=== PATIENT | male | born 1940 | race Caucasian/White ===

== ENCOUNTER 2021-10-30 09:24 | Outpatient (CLI) | payer MEDICARE, SELFPAY ==
[2021-10-30 18:05] LABS: Alanine Aminotransferase 32 U/L (6-50); Albumin Level 4.4 g/dL (3.5-5.1); Alkaline Phosphatase 82 U/L (38-126); Anion Gap 9 mmol/L (8-16); Aspartate Amino Transferase 37 U/L (17-59); Bilirubin,Total 0.7 mg/dL (0.2-1.3); Blood Urea Nitrogen 20 mg/dL (9-20); Calcium 8.9 mg/dL (8.4-10.2); Carbon Dioxide 30 mmol/L (22-30); Chloride 103 mmol/L (98-107); Cholesterol 155 mg/dL (0-200); Estimated Glomerular Filt Rate > 60; Glucose 96 mg/dL (65-110); HDL Direct 38 mg/dL; Potassium 4.2 mmol/L (3.4-5.0); Sodium 142 mmol/L (137-145); Triglycerides 139 mg/dL (<150)
[2021-10-30 18:15] LABS: LDL Cholesterol Direct 81 mg/dL
[2021-10-30 19:06] LABS: Hemoglobin A1C 5.3 % (<5.7)
[2022-01-26 14:22] LABS: IFOB Positive Control Positive; Immunochemical Fecal Occult Bl Positive (N)
== END 2021-10-30 09:25 | disposition home or self-care (01) ==
LOC: ANHGOSHLAB 09:26
PROVIDERS: PCP Family Medicine; Visit Provider Family Medicine
DX: E78.5 Hyperlipidemia, unspecified (principal); I10 Essential (primary) hypertension; R73.01 Impaired fasting glucose
CPT/HCPCS: 36415; 80053; 80061; 82274; 83036

== ENCOUNTER 2022-03-01 22:58 | Emergency (ER) | payer MEDICARE, SELFPAY ==
[2022-03-01] VITALS (9 sets, daily range): BP systolic 152–206; BP diastolic 73–105; PULSE 91–100; RESP 16–25; TEMP 37.3; O2SAT 94–98
--- NOTE | ~2022-03-01 | XR_ITS ---
EXAMINATION: XR chest 2V DATE: 03/01/2022 23:20 INDICATION: Shortness of breath. Productive cough. TECHNIQUE: Frontal and lateral views of the chest were obtained. COMPARISON: Chest 2 views 12/05/2018 FINDINGS: There is no pneumonia, pleural effusion, or pneumothorax. The heart size is normal. There i s a left chest pacer with leads in right atrium, right ventricle, and coronary sinus. Surgical clips in the right upper quadrant are likely from cholecystectomy. IMPRESSION: 1. No acute cardiopulmonary disease. Reviewed, dictated and finalized at location A. ING PILOT
--- NOTE | 2022-03-01 22:59 | ECG_ITS ---
Measurements Intervals [place] Rate: 94 P: 86 NM: 158 QRS: 261 QRSD: 161 T: 77 QT: 382 QTc: 478 Interpretive Statements ATRIAL SENSE- ELECTRONIC VENTRICULAR PACEMAKER BASELINE ARTIFACT- I NO FURTHER INTERPRETATION IS POSSIBLE ATYPICAL ECG COMPARED TO ECG 11/26/2018 19:41:53 NO SIGNIFICANT CHANGES Electronically Signed On 03-02-2022 8:52:32 QUALIFICATION ENGINEER by Raymond Velazquez D.O.
--- NOTE | 2022-03-01 23:50 | ED.GENADULT ---
HPI - General Adult General Chief complaint: Shortness of Breath/Dyspnea Stated complaint: SOB Time Seen by Provider: 03/01/22 23:10 History of Present Illness HPI narrative: 82-year-old male history of A. fib, hypertension, pacemaker, hyperlipidemia presents to the emergency room for evaluation of a productive cough, wheezing, postnasal drip, sinus congestion, and sneezing for 3 days. Patient states he was taking an old albuterol prescription for the cough and wheezing, stating that it helped briefly. Patient denies fever or chest pains. Related Data Home Medications Medication Instructions Recorded Confirmed apixaban 5 mg tablet (Eliquis) 5 mg PO BID 04/10/19 02/18/22 atorvastatin 10 mg tablet (Lipitor) 10 mg PO DAILY 04/10/19 02/18/22 cholecalciferol (vitamin D3) 50 2,000 unit PO DAILY 04/24/19 02/18/22 mcg (2,000 unit) tablet loratadine 10 mg tablet 10 mg PO DAILY 04/24/19 02/18/22 magnesium 250 mg tablet 250 mg PO DAILY 04/24/19 02/18/22 vit C 250 mg-vit E 90 mg-zinc 40 1 tablet PO BID 04/24/19 02/18/22 mg-copper 1 [id number] capsule (PreserVision AREDS-2) sotalol 80 mg tablet 80 mg PO Q12H 09/20/19 02/18/22 ascorbic acid (vitamin C) 500 mg 500 mg PO DAILY 02/18/22 02/18/22 capsule losartan 100 1 tablet PO DAILY 02/18/22 02/18/22 mg-hydrochlorothiazide 12.5 mg tablet Allergies Allergy/AdvReac Type Severity Reaction Status Date / Time cat dander Allergy Severe Difficulty Verified 03/01/22 23:04 Breathing latex Allergy Intermediate Rash Verified 03/01/22 23:04 Review of Systems Review of Systems: CONSTITUTIONAL: Denies fever, chills, or sweats. EYES: Denies visual changes, redness, or discharge. ENT: Reports rhinorrhea, congestion CARDIOVASCULAR: Denies chest pain, palpitations, or edema. RESPIRATORY: Reports a productive cough GASTROINTESTINAL: Denies abdominal pain, nausea, vomiting, or diarrhea. GENITOURINARY: Denies dysuria or hematuria. SKIN: Denies rash or itching. MUSCULOSKELETAL: Denies back pain, joint pain, or myalgia. NEUROLOGIC: Denies headache, numbness, dizziness, or weakness. PSYCHIATRIC: Denies anxiety or depression. [facility] Past Medical History Medical History (Updated 03/02/22 @ 00:58 by Nazario Mcfarland APRN) Atrial fibrillation Family History Family History Mother Family history of malignant neoplasm Social History Social History Smoking status: Never smoker Alcohol intake: current Substance use: never Substance use type: does not use Gender identity (if verbalized by the patient): Male Spiritual care concerns: No Exam Narrative: GENERAL: Well-appearing, well-nourished, no physical limitations, and in no acute distress. HEAD: Normocephalic, atraumatic. EYES: Conjunctivae normal, PERRLA and EOMI. ENT: External nose normal, Nares clear, no rhinorrhea or epistaxis. Mucous membranes moist. Oropharynx without tonsillar hypertrophy exudate or other lesions. External ears normal, bilateral TMs normal bilaterally NECK: Supple. No adenopathy or masses. CHEST: No respiratory distress. Expiratory wheezes at bases HEART: Regular rate and rhythm. No murmur heard. Normal peripheral pulses. ABDOMEN: Soft, nontender, nondistended, normal active bowel sounds. EXTREMITIES: Normal range of motion. No edema. No clubbing or cyanosis SKIN: Warm, dry, no rash. No noted wounds NEURO: No focal deficits. Alert and oriented x3. MAEW. CN's II-XI intact bilaterally, normal gait PSYCH: Cooperative. Normal mood and affect. Course Vital Signs Vital signs: Vital Signs Temperature 37.3 C 03/01/22 23:01 Pulse Rate 94 03/01/22 23:01 Respiratory Rate 18 03/01/22 23:01 Blood Pressure 206/105 H 03/01/22 23:01 Pulse Oximetry 98 03/01/22 23:01 Temperature 37.3 C 03/01/22 23:01 Pulse Rate 91 03/01/22 23:04 Respiratory Rate 19
[2022-03-01 23:58] LABS: Basophils Absolute Auto 0.1 K/mm3 (0.0-0.1); Basophils Percent Auto 0.6 % (0.2-1.2); Eosinophils Absolute Auto 0.2 K/mm3 (0-0.3); Eosinophils Percent Auto 2.6 % (0-4.4); Hematocrit 40.3 % (42.0-52.0); Hemoglobin 13.3 g/dL (14.0-18.0); Immature Granulocyte Absolute 0.03 K/mm3 (0.00-0.031); Immature Granulocyte Percent A 0.3 % (0-0.5); Immature Platelet Fraction Pct 8.2 % (0.9-11.2); Lymphocytes Absolute Auto 1.06 K/mm3 (0.9-3.2); Mean Corpuscular Hemoglobin 30.6 pg (26-34); Mean Corpuscular Volume 92.9 fl (80-100); Mean Platelet Volume 10.9 fl (7.4-10.4); Monocytes Absolute Auto 0.7 K/mm3 (0.1-0.6); Monocytes Percent Auto 7.4 % (2.6-8.5); Neutrophils Absolute Auto 6.8 K/mm3 (1.3-6.7); Neutrophils Percent Auto 77.1 % (45.5-73.1); Platelet Count Result 146 k/mm3 (150-375); Red Blood Count 4.34 M/mm3 (4.6-6.20); Red Cell Distribution Width 12.8 % (11.5-14.5); White Blood Count 8.8 K/mm3 (4.5-10.0)
[2022-03-02] VITALS (11 sets, daily range): BP systolic 128–143; BP diastolic 67–79; PULSE 88–96; RESP 13–21; O2SAT 92–98
[2022-03-02] MEDS: IPRATROPIUM BR 0.02% INH SOLN 0.5 MG/2.5 ML VIAL INHALATION (00:07)
[2022-03-02] MEDS: ALBUTEROL SULFATE NEB 2.5 MG/3 ML INH INHALATION (00:07)
[2022-03-02 00:08] LABS: Alanine Aminotransferase 23 U/L (6-50); Albumin Level 4.3 g/dL (3.5-5.1); Alkaline Phosphatase 88 U/L (38-126); Anion Gap 9 mmol/L (8-16); Aspartate Amino Transferase 22 U/L (17-59); Bilirubin,Total 0.4 mg/dL (0.2-1.3); Blood Urea Nitrogen 15 mg/dL (9-20); Calcium 8.5 mg/dL (8.4-10.2); Carbon Dioxide 31 mmol/L (22-30); Chloride 102 mmol/L (98-107); Estimated CRCL calculation 69 ml/min; Estimated Glomerular Filt Rate > 60; Glucose 114 mg/dL (65-110); Potassium 4.2 mmol/L (3.4-5.0); Sodium 142 mmol/L (137-145)
[2022-03-02 00:33] LABS: Influenza A QL RT-PCR Negative (Negative); Influenza B QL RT-PCR Negative (Negative); RSV RNA, RT-PCR Negative (Negative); SARS-CoV-2 RNA PCR Negative
== END 2022-03-02 01:50 | disposition home or self-care (01) ==
PROVIDERS: Preventive Medicine Aerospace Medicine; Emergency Provider Nurse Practitioner Family; PCP Family Medicine
DX: J06.9 Acute upper respiratory infection, unspecified (principal); Z20.822 Contact with and (suspected) exposure to COVID-19; E78.5 Hyperlipidemia, unspecified; I10 Essential (primary) hypertension; I48.91 Unspecified atrial fibrillation; Z79.01 Long term (current) use of anticoagulants; Z95.0 Presence of cardiac pacemaker
CPT/HCPCS: 36415; 71046; 80053; 85025; 85055; 87637; 93005; 94640; 96374; 99284; J1100

== ENCOUNTER 2022-03-03 15:04 | Inpatient (IN) | payer MEDICARE, SELFPAY ==
--- NOTE | ~2022-03-03 | XR_ITS ---
EXAMINATION: XR chest 2V Exam Date/Time: 03/03/2022 18:20 BILLBOARD ERECTOR HISTORY: sob with wheezing, weakness. hx Afib, pacemaker Comparison: 03/01/2022. RESULT: Lines, tubes, and devices: Left chest pacer with intact leads. Cholecystectomy clips. Lungs and pleura: Clear. Cardiomediastinal silhouette: Stable. Other: No acute osseous or upper abdominal finding. IMPRESSION: No acute cardiopulmonary process. Reviewed, dictated and finalized at location K. BOARD ERECTOR
[2022-03-03 15:12] VITALS: BP 174/110; PULSE 114; RESP 26; TEMP 37.1; O2SAT 97
--- NOTE | 2022-03-03 15:14 | ECG_ITS ---
Measurements Intervals [place] Rate: 99 P: 91 ME: 160 QRS: 265 QRSD: 161 T: 77 QT: 390 QTc: 502 Interpretive Statements ATRIAL SENSE- ELECTRONIC VENTRICULAR PACEMAKER VENTRICULAR PREMATURE COMPLEX BASELINE ARTIFACT- V1, V3 NO FURTHER INTERPRETATION IS POSSIBLE ATYPICAL ECG COMPARED TO ECG 03/01/2022 23:51:12 NO SIGNIFICANT CHANGES Electronically Signed On 03-03-2022 15:22:59 CARPENTER/LABOR by Raymond Velazquez D.O.
[2022-03-03 15:38] LABS: Basophils Percent Auto 0.3 % (0.2-1.2); Eosinophils Percent Auto 0.3 % (0-4.4); Hematocrit 41.7 % (42.0-52.0); Hemoglobin 13.8 g/dL (14.0-18.0); Immature Granulocyte Absolute 0.07 K/mm3 (0.00-0.031); Immature Granulocyte Percent A 0.7 % (0-0.5); Lymphocytes Absolute Auto 0.58 K/mm3 (0.9-3.2); Lymphocytes Percent Auto 6.1 % (18.3-44.2); Mean Corpuscular HGB Conc 33.1 g/dl (32-36); Mean Corpuscular Hemoglobin 30.2 pg (26-34); Mean Corpuscular Volume 91.2 fl (80-100); Mean Platelet Volume 11.4 fl (7.4-10.4); Monocytes Absolute Auto 0.6 K/mm3 (0.1-0.6); Monocytes Percent Auto 6.8 % (2.6-8.5); Neutrophils Absolute Auto 8.1 K/mm3 (1.3-6.7); Neutrophils Percent Auto 85.8 % (45.5-73.1); Platelet Count Result 154 k/mm3 (150-375); Red Blood Count 4.57 M/mm3 (4.6-6.20); Red Cell Distribution Width 12.8 % (11.5-14.5); White Blood Count 9.5 K/mm3 (4.5-10.0)
[2022-03-03 15:56] LABS: Lipase 37 U/L (23-300)
[2022-03-03 16:21] LABS: Influenza A QL RT-PCR Negative (Negative); Influenza B QL RT-PCR Negative (Negative); RSV RNA, RT-PCR Negative (Negative); SARS-CoV-2 RNA PCR Negative
--- NOTE | 2022-03-03 16:47 | ED.SOB ---
HPI - SOB/Dyspnea General Chief Complaint: Shortness of Breath/Dyspnea Stated Complaint: SOB/cough Time Seen by Provider: 03/03/22 16:31 History of Present Illness HPI Narrative: Patient is an 82-year-old male with a history of sick sinus syndrome status post pacemaker, hyperlipidemia, hypertension presenting with shortness of breath. Patient states that for the last 5 days he has been increasingly short of breath which has been associated with cough. States that he was seen here 2 days ago and received a breathing treatment which helped his symptoms.. He was able to go home with an inhaler which she has been using but it only helps for short period. States that he saw his PCP earlier today who increased his medications. His went to pick them up but the patient again felt so short of breath and wheezy that he decided to come in for evaluation. States that he cannot even walk around at home because he gets so short of breath. He denies chest pain or shortness of breath. No fevers, headache, abdominal pain, vomiting, diarrhea, leg swelling. Related Data Home Medications Medication Instructions Recorded Confirmed apixaban 5 mg tablet (Eliquis) 5 mg PO BID 04/10/19 03/03/22 atorvastatin 10 mg tablet (Lipitor) 10 mg PO DAILY 04/10/19 03/03/22 cholecalciferol (vitamin D3) 50 2,000 unit PO DAILY 04/24/19 03/03/22 mcg (2,000 unit) tablet loratadine 10 mg tablet 10 mg PO DAILY 04/24/19 03/03/22 magnesium 250 mg tablet 250 mg PO DAILY 04/24/19 03/03/22 vit C 250 mg-vit E 90 mg-zinc 40 1 tablet PO BID 04/24/19 03/03/22 mg-copper 1 [id number]-qhjwrs capsule (PreserVision AREDS-2) sotalol 80 mg tablet 80 mg PO Q12H 09/20/19 03/03/22 ascorbic acid (vitamin C) 500 mg 500 mg PO DAILY 02/18/22 03/03/22 capsule losartan 100 1 tablet PO DAILY 02/18/22 03/03/22 mg-hydrochlorothiazide 12.5 mg tablet albuterol sulfate 90 mcg/actuation 1 inh inhalation QID PRN Shortness 03/03/22 03/03/22 aerosol inhaler (Proventil HFA) Of Breath prednisone 20 mg tablet 20 mg PO DAILY 03/03/22 03/03/22 Allergies Allergy/AdvReac Type Severity Reaction Status Date / Time cat dander Allergy Severe Difficulty Verified 03/03/22 11:10 Breathing latex Allergy Intermediate Rash Verified 03/03/22 11:10 Review of Systems Review of Systems: All systems reviewed & are unremarkable except as noted in HPI and below PMFSH Past Medical History Medical History (Updated 03/04/22 @ 22:19 by Pratibha Gibbs MD) Atrial fibrillation Family History Family History Mother Family history of malignant neoplasm Social History Social History Smoking status: Never smoker Alcohol intake: never Substance use: never Substance use type: does not use Lack of Transportation: No Lack of Food: Never True Current Housing: I Have Housing Concerned About Future Housing: No Difficulty Paying Gas/Electric Bills: No Difficulty Paying for Meds: No Currently Unemployed: No Education: High School Diploma/GED Difficulty w/ Childcare or Family Care: No Gender identity (if verbalized by the patient): Male Spiritual care concerns: No Exam Narrative: GENERAL: Well-appearing, well-nourished, and in no acute distress. HEAD: Normocephalic, atraumatic. EYES: PERRLA and EOMI. ENT: Nares clear, no rhinorrhea or epistaxis. Mucous membranes moist. NECK: Supple. CHEST: Wheezing bilaterally. No respiratory distress. HEART: Regular rate and rhythm. No murmur heard. Normal peripheral pulses. ABDOMEN: Soft, nontender, nondistended, normal active bowel sounds. EXTREMITIES: Normal range of motion. No edema. SKIN: Warm, dry, no rash. NEURO: No focal deficits. Alert and oriented x3. PSYCH: Normal mood and affect. Course Vital Signs Vital signs: Vital Signs Temperature 98.7 F 03/03/22 15:12 Pulse Rate 114 H 03/03/22 15
[2022-03-03] MEDS: ALBUTEROL SULFATE NEB 2.5 MG/3 ML INH 10 MG INHALATION (16:55)
[2022-03-03] MEDS: IPRATROPIUM BR 0.02% INH SOLN 0.5 MG/2.5 ML VIAL INHALATION ×2 (16:55→20:56)
[2022-03-03 17:21] LABS: Potassium 3.7 mmol/L (3.4-5.0)
[2022-03-03] MEDS: SODIUM CHLORIDE 0.9% IV 1,000 ML 999 ML IV CONT (17:22)
[2022-03-03] MEDS: methylPREDNISolone SOD SUCC 125 MG VIAL IV PUSH (17:22)
[2022-03-03 17:32] LABS: Troponin I < 0.012 ng/mL (0.000-0.034)
[2022-03-03 17:33] LABS: Appearance Urine Clear (Clear); Bilirubin Urine Negative (Negative); Blood Urine Trace-lysed (Negative); Color Urine Yellow (Yellow); Glucose Urine UA Negative (Negative); Ketones Urine Negative (Negative); Leukocyte Esterase Ur Negative LEU/UL (Negative); Nitrate Urine Negative (Negative); Protein Urine 1+ mg/dL (Negative); Urobilinogen Urine 0.2 mg/dL (<2.0)
[2022-03-03 17:36] LABS: Bacteria Urine Trace /hpf; Mucus Urine Rare /lpf; WBC Urine 0-3 /hpf
[2022-03-03 17:44] LABS: Add Urine Microscopic? YES
[2022-03-03 17:48] LABS: Alanine Aminotransferase 25 U/L (6-50); Albumin Level 4.6 g/dL (3.5-5.1); Alkaline Phosphatase 97 U/L (38-126); Anion Gap 6 mmol/L (8-16); Aspartate Amino Transferase 27 U/L (17-59); Bilirubin,Total 0.6 mg/dL (0.2-1.3); Blood Urea Nitrogen 18 mg/dL (9-20); Calcium 8.8 mg/dL (8.4-10.2); Carbon Dioxide 28 mmol/L (22-30); Chloride 102 mmol/L (98-107); Estimated CRCL calculation 96 ml/min; Estimated Glomerular Filt Rate > 60; Glucose 113 mg/dL (65-110); Lipase 36 U/L (23-300); Sodium 136 mmol/L (137-145)
[2022-03-03 18:26] LABS: Prothrombin Time 13.2 Seconds (11.1-14.7)
--- NOTE | 2022-03-03 20:07 | PM.IMHP ---
H&P: HPI History of Present Illness Date/Time: 03/03/22 20:07 Chief Complaint: shortness of breath Narrative: This is an 82-year-old male with past medical history significant for atrial fibrillation rate controlled and anticoagulated, pacemaker defibrillator in place, shortness of breath, productive cough, of yellowish villegas sputum,hypertension. Patient presented to the emergency room due to shortness of breath, productive cough, of yellowish villegas sputum for the last 3 days or so patient had been in to see his primary care physician who started him on p.o. antibiotics however due to worsening of shortness of breath and cough patient decided to present to the emergency room, patient denies any fevers, rigors, chills, night sweats, leg swelling, chest pain. In emergency room patient was given several neb treatments but was still feeling very short of breath and had wheezing. Decision has been made to admit the patient for further evaluation management and treatment. Review of Systems Review of Systems: Shortness of breath, cough productive of sputum. Constitutional: Constitutional: Denies chills, Denies fever(s), Denies night sweats and Denies poor appetite Comments: No fevers, no rigors, no chills Eyes: Eyes: Denies change in vision ENT: Denies dysphagia and Denies odynophagia Cardiovascular: Cardiovascular: Denies chest pain, Denies leg edema and Denies palpitations Respiratory: Respiratory: Denies change in phlegm color, Reports chest congestion, Reports cough, Reports excessive phlegm production, Reports dyspnea and Reports wheezing Gastrointestinal: Gastrointestinal: Denies abdominal pain, Denies dyspepsia, Denies heartburn, Denies diarrhea, Denies nausea and Denies vomiting Genitourinary: Genitourinary: Denies dysuria Musculoskeletal: Musculoskeletal: Denies myalgias Integumentary/Breasts: Skin/Breast: Denies rash Neurologic: Denies vertigo, Denies dizziness, Denies focal weakness and Denies Sensory deficit (Neuro) Psychiatric: Psychiatric: Reports no additional psychiatric complaints and Reports as per HPI Endocrine: Endocrine: Denies cold intolerance, Denies flushing, Denies heat intolerance, Denies polyphagia, Denies polydipsia and Denies palpitations Hematologic/Lymphatic: Hematologic/Lymphatic: Reports no additional hematologic/lymphatic complaints and Reports as per HPI Allergic/Immunologic: Allergic/Immunologic: Reports no additional allergic/immunologic complaints and Reports as per [facility] Past Medical History Medical History (Updated 03/04/22 @ 01:29 by Heri Navarrete MD) Atrial fibrillation Family History Family History Mother Family history of malignant neoplasm Social History Social History Smoking status: Never smoker Alcohol intake: never Substance use: never Substance use type: does not use Lack of Transportation: No Lack of Food: Never True Current Housing: I Have Housing Concerned About Future Housing: No Difficulty Paying Gas/Electric Bills: No Difficulty Paying for Meds: No Currently Unemployed: No Education: High School Diploma/GED Difficulty w/ Childcare or Family Care: No Gender identity (if verbalized by the patient): Male Spiritual care concerns: No Meds Home Medications and Allergies Home Medications Medication Instructions Recorded Confirmed Type apixaban 5 mg tablet (Eliquis) 5 mg PO BID 04/10/19 03/03/22 History atorvastatin 10 mg tablet (Lipitor) 10 mg PO DAILY 04/10/19 03/03/22 History cholecalciferol (vitamin D3) 50 2,000 unit PO DAILY 04/24/19 03/03/22 History mcg (2,000 unit) tablet loratadine 10 mg tablet 10 mg PO DAILY 04/24/19 03/03/22 History magnesium 250 mg tablet 250 mg PO DAILY 04/24/19 03/03/22 History vit C 250 mg-vit E 90 mg-zinc 40 1 tablet PO BID 04/24/19 03/03/22 History mg-copper 1 mg-lutei
[2022-03-03] MEDS: ALBUTEROL SULFATE NEB 2.5 MG/3 ML INH 5 MG INHALATION (20:56)
[2022-03-03 20:58] VITALS: PULSE 95; RESP 14
[2022-03-03 20:59] LABS: Troponin I < 0.012 ng/mL (0.000-0.034)
[2022-03-03 21:00] VITALS: PULSE 95; RESP 16; O2SAT 95
[2022-03-03 21:22] VITALS: BP 147/78; PULSE 96; RESP 20; O2SAT 95
[2022-03-03 23:00] VITALS: BP 164/86; PULSE 102; RESP 16; TEMP 36.3; O2SAT 96
--- NOTE | 2022-03-03 23:08 | ADMGEN ---
This patient, Harper Cook, was admitted to [facility] Surg Room 304-02. Patient/family oriented to hospital policies and general routines including ID bracelet, bed and alarms, visiting hours, pain management, procedures, bathroom and other care routines, personal items, smoking policy, room service/diet, and visiting hours. Information on how to activate the Rapid Response Team has been discussed. Patient/Family are encouraged to report perceived risks to care and to ask questions if they do not understand what they are told or what they should do.
[2022-03-03 23:31] LABS: Troponin I < 0.012 ng/mL (0.000-0.034)
--- NOTE | 2022-03-03 23:55 | PC.NURSE ---
Attempted to reach Dr Navarrete about pt's requests and unable to reach after 2 tries. Will attempt to call again in 15 minutes.
[2022-03-04] VITALS (10 sets, daily range): BP systolic 117–146; BP diastolic 72–76; PULSE 76–91; RESP 14–22; TEMP 36.2–36.4; O2SAT 92–95; BMI 40.3
--- NOTE | 2022-03-04 00:51 | PC.NURSE ---
Called laborer cook house to make aware that unable to reach Dr. Navarrete on any line after multiple attempts. airline managerial supervisor said she would send a message to Dr. Navarrete to call 3rd med surg.
[2022-03-04] MEDS: methylPREDNISolone SOD SUCC 40 MG VIAL IV PUSH (05:25)
[2022-03-04] MEDS: ALBUTEROL SULFATE NEB 2.5 MG/3 ML INH 5 MG INHALATION ×2 (08:00→13:07)
[2022-03-04] MEDS: IPRATROPIUM BR 0.02% INH SOLN 0.5 MG/2.5 ML VIAL INHALATION ×2 (08:00→13:07)
[2022-03-04] MEDS: LOSARTAN POTASSIUM 100 MG TABLET PO (09:59)
[2022-03-04] MEDS: ATORVASTATIN 10 MG TABLET PO (09:59)
[2022-03-04] MEDS: hydroCHLOROthiazide 12.5 MG CAPSULE PO (09:59)
[2022-03-04] MEDS: SOTALOL HCL 80 MG TABLET PO ×2 (09:59→20:31)
[2022-03-04] MEDS: ASCORBIC ACID 500 MG TABLET PO (09:59)
[2022-03-04] MEDS: CHOLECALCIFEROL 1,000 UNITS TABLET 2000 UNITS PO (09:59)
[2022-03-04] MEDS: LORATADINE 10 MG TABLET PO (09:59)
[2022-03-04] MEDS: MAGNESIUM OXIDE 200 MG TABLET PO (09:59)
[2022-03-04] MEDS: APIXABAN 5 MG TABLET PO ×2 (10:00→20:31)
[2022-03-04] MEDS: FLUTICASONE PROPIONATE 0.05% NA SPR 16 GM BTL (*BKC) 1 SPRAY NASAL ×2 (10:00→20:31)
[2022-03-04] MEDS: PANTOPRAZOLE 40 MG TABLET PO ×2 (10:00→17:39)
--- NOTE | 2022-03-04 15:24 | PM.IMPN ---
Progress Note: A&P Assessment and Plan (1) COPD exacerbation: Code(s): J44.1 - Chronic obstructive pulmonary disease with (acute) exacerbation Status: Acute Assessment and Plan: Improving Continue breathing treatments Continue oral prednisone. Discontinue IV Solu-Medrol Continue antibiotics (2) Atrial fibrillation: Qualifiers: Atrial fibrillation type: permanent Qualified Code(s): I48.21 - Permanent atrial fibrillation Code(s): I48.91 - Unspecified atrial fibrillation Status: Acute Assessment and Plan: rate controlled, anticoagulated (3) Cardiac pacemaker in situ: Code(s): Z95.0 - Presence of cardiac pacemaker Status: Acute Assessment and Plan: continue to monitor (4) Hypertension, benign: Code(s): I10 - Essential (primary) hypertension Status: Acute Assessment and Plan: continue home meds continue to monitor (5) Morbid obesity with BMI of 40.0-44.9, adult: Code(s): E66.01 - Morbid (severe) obesity due to excess calories; Z68.41 - Body mass index [BMI] 40.0-44.9, adult Status: Acute Assessment and Plan: lifestyle and diet modifications (6) 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 No wheezing. On room air Review of Systems Review of Systems: Shortness of breath, cough productive of sputum. Constitutional: Constitutional: Denies chills, Denies fever(s), Denies night sweats and Denies poor appetite Comments: No fevers, no rigors, no chills Eyes: Eyes: Denies change in vision ENT: Denies dysphagia and Denies odynophagia Cardiovascular: Cardiovascular: Denies chest pain, Denies leg edema and Denies palpitations Respiratory: Respiratory: Denies change in phlegm color, Reports chest congestion, Reports cough, Reports excessive phlegm production, Reports dyspnea and Reports wheezing Gastrointestinal: Gastrointestinal: Denies abdominal pain, Denies dyspepsia, Denies heartburn, Denies diarrhea, Denies nausea and Denies vomiting Genitourinary: Genitourinary: Denies dysuria Musculoskeletal: Musculoskeletal: Denies myalgias Integumentary/Breasts: Skin/Breast: Denies rash Neurologic: Denies vertigo, Denies dizziness, Denies focal weakness and Denies Sensory deficit (Neuro) Psychiatric: Psychiatric: Reports no additional psychiatric complaints and Reports as per HPI Endocrine: Endocrine: Denies cold intolerance, Denies flushing, Denies heat intolerance, Denies polyphagia, Denies polydipsia and Denies palpitations Hematologic/Lymphatic: Hematologic/Lymphatic: Reports no additional hematologic/lymphatic complaints and Reports as per HPI Allergic/Immunologic: Allergic/Immunologic: Reports no additional allergic/immunologic complaints and Reports as per HPI Exam Narrative: patient is sitting by the edge of the stretcher Const: General: comfortable, no acute distress, well developed, alert, awake and average body habitus Nutritional Appearance: overweight Orientation/consciousness: patient oriented x3 HENMT: Head: normal to inspection, normocephalic and atraumatic Ears: hearing grossly normal bilaterally Face/Nose/Sinus: normal facial exam Face and sinus: normal facial exam Eyes: General: appearance normal, both eyes and all related structures Pupils: Equal, round and reactive pupils present EOM: EOMs intact bilaterally Neck: Neck: full ROM, no lymphadenopathy and no JVD Thyroid: thyroid normal Lymphatic: no lymphadenopathy noted Resp: Effort & Inspection: normal respiratory effort and able to speak in complete sentences Cardio: Jugular venous distension: no JVD Rate: regular rate Rhythm: regular rhythm Heart sounds: S1 normal heart sound present and S2 normal heart sound prese
[2022-03-05] VITALS (7 sets, daily range): BP systolic 114; BP diastolic 66; PULSE 79–87; RESP 18–22; TEMP 36.5; O2SAT 94–95
[2022-03-05] MEDS: IPRATROPIUM BR 0.02% INH SOLN 0.5 MG/2.5 ML VIAL INHALATION ×2 (02:23→09:01)
[2022-03-05] MEDS: ALBUTEROL SULFATE NEB 2.5 MG/3 ML INH 5 MG INHALATION ×2 (02:24→09:01)
[2022-03-05] MEDS: FLUTICASONE PROPIONATE 0.05% NA SPR 16 GM BTL (*BKC) 1 SPRAY NASAL (09:24)
[2022-03-05] MEDS: ATORVASTATIN 10 MG TABLET PO (09:25)
[2022-03-05] MEDS: ASCORBIC ACID 500 MG TABLET PO (09:25)
[2022-03-05] MEDS: hydroCHLOROthiazide 12.5 MG CAPSULE PO (09:25)
[2022-03-05] MEDS: PANTOPRAZOLE 40 MG TABLET PO (09:25)
[2022-03-05] MEDS: APIXABAN 5 MG TABLET PO (09:25)
[2022-03-05] MEDS: SOTALOL HCL 80 MG TABLET PO (09:25)
[2022-03-05] MEDS: predniSONE 20 MG TABLET 40 MG PO (09:25)
[2022-03-05] MEDS: LORATADINE 10 MG TABLET PO (09:25)
[2022-03-05] MEDS: MAGNESIUM OXIDE 200 MG TABLET PO (09:25)
[2022-03-05] MEDS: LOSARTAN POTASSIUM 100 MG TABLET PO (09:25)
[2022-03-05] MEDS: CHOLECALCIFEROL 1,000 UNITS TABLET 2000 UNITS PO (09:26)
--- NOTE | 2022-03-05 10:10 | PM.DS ---
DS: Admitting Diagnosis Discharge Date 03/05/2022 Admitting Diagnosis COPD exacerbation DS: Discharge Diagnosis Discharge Diagnosis (1) COPD exacerbation: Code(s): J44.1 - Chronic obstructive pulmonary disease with (acute) exacerbation Status: Acute DS: Summary Hospital Course Hospital Course: This is an 82-year-old male with? past medical history significant for atrial fibrillation rate controlled and anticoagulated,? pacemaker defibrillator in place, shortness of breath, productive cough, of yellowish villegas sputum,hypertension. Chest x-ray showed COPD. No pneumonia. Patient was started on nebulizers along with IV steroids. IV steroid was changed to oral steroids. At this time patient is back to baseline. Patient was counseled on following up with pulmonology as outpatient. He has been a lifelong nonsmoker but probably has occupational lung disease. Patient was taking doxycycline previously so will continue that for 3 more days. Continue oral steroid and nebulizer along with inhaler. Patient is clinically stable and is being discharged home Time Spent with Patient Time attestation: Total time spent providing and/or coordinating discharge services: Exam Narrative: patient is sitting by the edge of the stretcher Const: General: comfortable, no acute distress, well developed, alert, awake and average body habitus Nutritional Appearance: overweight Orientation/consciousness: patient oriented x3 HENMT: Head: normal to inspection, normocephalic and atraumatic Ears: hearing grossly normal bilaterally Face/Nose/Sinus: normal facial exam Face and sinus: normal facial exam Eyes: General: appearance normal, both eyes and all related structures Pupils: Equal, round and reactive pupils present EOM: EOMs intact bilaterally Neck: Neck: full ROM, no lymphadenopathy and no JVD Thyroid: thyroid normal Lymphatic: no lymphadenopathy noted Resp: Effort & Inspection: normal respiratory effort and able to speak in complete sentences Cardio: Jugular venous distension: no JVD Rate: regular rate Rhythm: regular rhythm Heart sounds: S1 normal heart sound present and S2 normal heart sound present GI: Inspection: Pannus present GI Palp: Yes Soft to palpation and Yes No hepatosplenomegaly present : General: Yes deferred Skin: Rashes: no rashes Wounds: no wounds Neuro: General: patient oriented x3 and CN's II-XI intact bilaterally Cranial nerves: Yes CN's II-XII intact bilaterally and Yes Equal, round and reactive pupils present Cognition (Neuro): normal cognition Speech: normal speech Gait exam (Neuro): Normal gait present Motor exam (neuro): 5/5 motor strength present throughout Extrem: General: normal to inspection, full ROM, no joint enlargement and no pedal edema Discharge Plan Discharge Discharging Clinician: Tylor Mc Anticipated Discharge Date/Time: 03/05/22 09:35 Patient Disposition: Home, Self-Care Activity: may shower Diet: heart healthy Patient Instructions: Antibiotic Form, Apixaban (By mouth) Stand Alone Forms: General Discharge Information Follow-up/Referrals: Raymundo Lewis, [Primary Care Provider] - Discharge Medications: New (DME) nebulizer and compressor Device See Rx Instructions .Route Qty: 1 0RF Rx Instructions: As directed albuterol sulfate 2.5 mg /3 mL (0.083 %) Solution For Nebulization 5 mg inhalation Q4HRT 30 Days Qty: 1080 0RF Continued Eliquis 5 mg tablet 5 mg PO BID atorvastatin [Lipitor] 10 mg tablet 10 mg PO DAILY loratadine 10 mg tablet 10 mg PO DAILY PreserVision AREDS-2 [id number] ce-wzba-wc-mg capsule 1 tablet PO BID Rx Instructions: administer with meals cholecalciferol (vitamin D3) 2,000 unit tablet 2,000 unit PO DAILY magnesium 250 mg tablet 250 mg PO DAILY benzonatate 200 mg capsule 200 mg PO TID PRN (Reason: cough) Qty: 20 0RF albuterol sulfate [Proven
== END 2022-03-05 14:00 | disposition home or self-care (01) | DRG 191 ==
LOC: ANHED 17:47 → ANH3MEDSUR 21:01
PROVIDERS: Emergency Medicine; Admitting Provider Internal Medicine; Emergency Provider Emergency Medicine; PCP Family Medicine; Visit Provider Hospitalist
DX: J44.1 Chronic obstructive pulmonary disease with (acute) exacerbation (principal); Z68.41 Body mass index [BMI] 40.0-44.9, adult; Z20.822 Contact with and (suspected) exposure to COVID-19; I49.5 Sick sinus syndrome; Z95.0 Presence of cardiac pacemaker; I10 Essential (primary) hypertension; Z79.51 Long term (current) use of inhaled steroids; Z79.899 Other long term (current) drug therapy; Z91.040 Latex allergy status; E66.01 Morbid (severe) obesity due to excess calories; Z79.01 Long term (current) use of anticoagulants
CPT/HCPCS: 36415; 71046; 80053; 81001; 83690; 84484; 85025; 85055; 85610; 85730; 87637; 93005; 94640; 96361; 96365; 96374; 96375; 96376; 99284; 99285; A9270; G0378; J1100; J1956; J2920; J2930; J7030; J7512

== ENCOUNTER 2022-04-08 03:16 | Day surgery (SDC) | payer MEDICARE, SELFPAY ==
[2022-02-18 10:28] VITALS: BMI 38.7
[2022-03-30 14:42] VITALS: BMI 38.7
[2022-04-08 06:43] VITALS: BP 133/64; PULSE 69; RESP 18; TEMP 35.8; O2SAT 99
[2022-04-08] MEDS: LACTATED RINGERS 1,000 ML 150 ML IV CONT (06:48)
--- NOTE | 2022-04-08 07:20 | PM.HPGS ---
History of Present Illness History of Present Illness Consent: Risks, benefits, and alternatives have been discussed and questions answered. Patient agrees to proceed with procedure. Chief complaint: Post Hemoccult Narrative: Harper Cook is a 82 year old male Presents for screening colonoscopy. Patient patient recently had positive Hemoccult test. Patient reports his current weight appetite and bowel movements are normal. He denies abdominal pain he has had no blood obvious bleeding. Patient is on Eliquis because of atrial fibrillation. Family history is significant his mother had colon cancer. Two siblings have had pancreatic cancer. A brother has had colon polyps. Patient himself previously had colon polyps. Review of Systems Review of Systems: Review of systems noncontributory. [facility] Past Medical History Medical History (Updated 04/08/22 @ 07:22 by Anurag Khan MD) Atrial fibrillation Family History Family History Mother Family history of malignant neoplasm Social History Social History Smoking status: Never smoker Alcohol intake: never Substance use: never Substance use type: does not use Lack of Transportation: No Lack of Food: Never True Current Housing: I Have Housing Concerned About Future Housing: No Difficulty Paying Gas/Electric Bills: No Difficulty Paying for Meds: No Currently Unemployed: No Education: High School Diploma/GED Difficulty w/ Childcare or Family Care: No Living arrangements: with family Gender identity (if verbalized by the patient): Male Spiritual care concerns: No Meds Home Medications and Allergies Home Medications Medication Instructions Recorded Confirmed Type apixaban 5 mg tablet (Eliquis) 5 mg PO BID 04/10/19 04/08/22 History atorvastatin 10 mg tablet (Lipitor) 10 mg PO DAILY 04/10/19 04/08/22 History cholecalciferol (vitamin D3) 50 2,000 unit PO DAILY 04/24/19 04/08/22 History mcg (2,000 unit) tablet loratadine 10 mg tablet 10 mg PO DAILY 04/24/19 04/08/22 History magnesium 250 mg tablet 250 mg PO DAILY 04/24/19 04/08/22 History vit C 250 mg-vit E 90 mg-zinc 40 1 tablet PO BID 04/24/19 04/08/22 History mg-copper 1 [id number] capsule (PreserVision AREDS-2) sotalol 80 mg tablet 80 mg PO Q12H 09/20/19 04/08/22 History ascorbic acid (vitamin C) 500 mg 500 mg PO DAILY 02/18/22 04/08/22 History capsule losartan 100 1 tablet PO DAILY 02/18/22 04/08/22 History mg-hydrochlorothiazide 12.5 mg tablet albuterol sulfate 90 mcg/actuation 1 inh inhalation QID PRN Shortness 03/03/22 04/08/22 History aerosol inhaler (Proventil HFA) Of Breath ipratropium 0.5 mg-albuterol 3 mg 3 ml inhalation Q6H PRN shortness 03/05/22 04/08/22 Rx (2.5 mg base)/3 mL nebulization of breath #90 mL soln nebulizer and compressor #1 ea 03/05/22 03/09/22 Rx omeprazole 40 mg capsule,delayed 40 mg PO DAILY #90 caps 03/31/22 04/08/22 Rx release Allergies Allergy/AdvReac Type Severity Reaction Status Date / Time cat dander Allergy Severe Difficulty Verified 04/08/22 06:42 Breathing latex Allergy Intermediate Rash Verified 04/08/22 06:42 Vital Signs Vital Signs - 24 hr 04/08/22 06:43 Temperature 96.4 F L Pulse Rate 69 Respiratory Rate 18 Blood Pressure 133/64 Pulse Oximetry 99 Oxygen Delivery Room Air Exam Narrative: Physical exam reveals patient to be alert. Vital signs stable. HEENT exam is unremarkable. Patient is anicteric. Lungs are clear to auscultation and percussion. Heart is without murmur or extra sounds. Abdomen bowel sounds are present soft nontender with no organomegaly. Digital external rectal exam is normal. Assessment and Plan Assessment and plan (1) Occult blood in stools: Code(s): R19.5 - Other fecal abnormalities Status: Acute Assessment and
--- NOTE | 2022-04-08 07:27 | WPDANESEPPF ---
Anes - Initial Pre Proc Eval Procedure: Operation Date: 04/08/22 08:00 Proposed Procedures p Colonoscopy - Anurag Khan MD Date/Time: 04/08/22 07:27 Surgeon: Anurag Khan MD Pre Op Diagnosis: Post Hemoccult Patient Data Age: 82 Gender: M Height: 1.78 m Weight: 124.2 kg Last Vital Signs Temp 96.4 F L 04/08/22 06:43 Pulse 69 04/08/22 06:43 Resp 18 04/08/22 06:43 BP 133/64 04/08/22 06:43 Pulse Ox 99 04/08/22 06:43 O2 Del Method Room Air 04/08/22 06:43 Allergies Allergy/AdvReac Type Severity Reaction Status Date / Time cat dander Allergy Severe Difficulty Verified 04/08/22 06:42 Breathing latex Allergy Intermediate Rash Verified 04/08/22 06:42 Home Medications Medication Instructions Recorded Confirmed Type apixaban 5 mg tablet (Eliquis) 5 mg PO BID 04/10/19 04/08/22 History atorvastatin 10 mg tablet (Lipitor) 10 mg PO DAILY 04/10/19 04/08/22 History cholecalciferol (vitamin D3) 50 2,000 unit PO DAILY 04/24/19 04/08/22 History mcg (2,000 unit) tablet loratadine 10 mg tablet 10 mg PO DAILY 04/24/19 04/08/22 History magnesium 250 mg tablet 250 mg PO DAILY 04/24/19 04/08/22 History vit C 250 mg-vit E 90 mg-zinc 40 1 tablet PO BID 04/24/19 04/08/22 History mg-copper 1 [id number] capsule (PreserVision AREDS-2) sotalol 80 mg tablet 80 mg PO Q12H 09/20/19 04/08/22 History ascorbic acid (vitamin C) 500 mg 500 mg PO DAILY 02/18/22 04/08/22 History capsule losartan 100 1 tablet PO DAILY 02/18/22 04/08/22 History mg-hydrochlorothiazide 12.5 mg tablet albuterol sulfate 90 mcg/actuation 1 inh inhalation QID PRN Shortness 03/03/22 04/08/22 History aerosol inhaler (Proventil HFA) Of Breath ipratropium 0.5 mg-albuterol 3 mg 3 ml inhalation Q6H PRN shortness 03/05/22 04/08/22 Rx (2.5 mg base)/3 mL nebulization of breath #90 mL soln nebulizer and compressor #1 ea 03/05/22 03/09/22 Rx omeprazole 40 mg capsule,delayed 40 mg PO DAILY #90 caps 03/31/22 04/08/22 Rx release Patient hx anesthesia problems: none Family hx anesthesia problems: none Results Review: All pre-operative results and documents have been reviewed as part of the pre-operative evaluation. [facility] Past Medical History Medical History (Updated 04/08/22 @ 07:22 by Anurag Khan MD) Atrial fibrillation Family History Family History Mother Family history of malignant neoplasm Social History Social History Smoking status: Never smoker Alcohol intake: never Substance use: never Substance use type: does not use Lack of Transportation: No Lack of Food: Never True Current Housing: I Have Housing Concerned About Future Housing: No Difficulty Paying Gas/Electric Bills: No Difficulty Paying for Meds: No Currently Unemployed: No Education: High School Diploma/GED Difficulty w/ Childcare or Family Care: No Living arrangements: with family Gender identity (if verbalized by the patient): Male Spiritual care concerns: No Anes - Eval Final PreProcedure Day of Procedure 04/08/22 07:27 Patient weight: morbidly obese Heart: irregular rhythm Lungs: clear to auscultation Airway: Mallampati scale class III Neurological: alert and oriented Last oral intake: >/= 8 hours ASA classification: IV Emergent: no Anesthetic plan: proceed Anesthesia type and monitoring: general GIVS and standard monitoring Results Review: All pre-operative results and documents have been reviewed as part of the pre-operative evaluation. Informed Consent: The patient's anesthetic plan and its attendant risks and benefits were discussed with the patient/family/POA. Questions were solicited and answers provided to the satisfaction of the patient/family/POA.
[2022-04-08 08:13] VITALS: BP 80/50; PULSE 70; RESP 22; O2SAT 96
[2022-04-08 08:23] VITALS: BP 93/53; PULSE 70; RESP 25; O2SAT 95
[2022-04-08 08:33] VITALS: BP 97/56; PULSE 72; RESP 18; O2SAT 86
== END 2022-04-08 08:47 | disposition home or self-care (01) ==
PROVIDERS: PCP Family Medicine; Visit Provider Internal Medicine Gastroenterology
PROC: 0DJD8ZZ Inspection of Lower Intestinal Tract, Via Natural or Artificial Opening Endoscopic (ICD-10-PCS; CPT 45378; principal; 2022-04-08 08:00)
DX: D12.2 Benign neoplasm of ascending colon (principal); D12.5 Benign neoplasm of sigmoid colon; K57.30 Diverticulosis of large intestine without perforation or abscess without bleeding; K64.8 Other hemorrhoids; Z80.0 Family history of malignant neoplasm of digestive organs; I48.91 Unspecified atrial fibrillation; Z79.01 Long term (current) use of anticoagulants; Z83.71 Family history of colonic polyps; Z79.51 Long term (current) use of inhaled steroids
CPT/HCPCS: 45385; 88305; J2704; J7120

== ENCOUNTER → 2022-12-22 14:40 | Outpatient (CLI) | payer MEDICARE, SELFPAY ==
--- NOTE | ~2022-12-22 | XR_ITS ---
XR chest 2V DATE: 12/22/2022 14:48 INDICATION: Wheezing. Possible aspiration of oral only. TECHNIQUE: 2 views COMPARISON: 03/03/2022 PA and lateral chest FINDINGS: Left triple lead pacemaker device is again noted. Borderline heart size. Aortic unfolding. No hilar or mediastinal enlargement. Bilateral hyperinflation. No pulmonary infiltrate or consolidation, pleural effusion or pulmonary vas cular congestion or pneumothorax. Degenerative spurring of the thoracic spine. IMPRESSION: Borderline heart size Triple lead pacemaker Bilateral hyperinflation; no active pulmonary disease Reviewed, dictated and finalized at location A.
== END ==
PROVIDERS: PCP Family Medicine; Visit Provider Emergency Medicine
DX: R06.2 Wheezing (principal); Z95.0 Presence of cardiac pacemaker
CPT/HCPCS: 71046

== ENCOUNTER → 2023-02-03 16:20 | Outpatient (CLI) | payer MEDICARE, SELFPAY ==
--- NOTE | ~2023-02-03 | XR_ITS ---
XR hip BI wo pelvis DATE: 02/03/2023 16:38 INDICATION: Bilateral hip pain TECHNIQUE: AP and lateral views of each hip COMPARISON: None FINDINGS: Likely degenerative subchondral cyst of the superolateral aspect of the acetabulum. Hip edu nt spaces are symmetric and relatively preserved. No fracture or dislocation, avascular necrosis or b one destruction of either hip is noted. IMPRESSION: Mild right hip osteoarthritis Reviewed, dictated and finalized at location L.
== END ==
PROVIDERS: PCP Family Medicine; Visit Provider Family Medicine
DX: M16.11 Unilateral primary osteoarthritis, right hip (principal)
CPT/HCPCS: 73521

== ENCOUNTER 2023-02-08 09:24 | Outpatient (RCR) | payer MEDICARE, SELFPAY ==
--- NOTE | 2023-02-08 10:50 | OPREHPOC ---
Outpatient Therapy Plan of Care This is a Multidisciplinary Plan of Care that may contain components documented by all disciplines (PT, OT, and ST.) PT Problem 1 PT Problem #1 Knowledge Deficit PT Goal 1 Goal 1. independent and compliant with HEP Target Visit 6 PT Problem 2 PT Problem #2 Impaired Strength PT Goal 1 Goal 1. improve bilateral hip abd strength to 4+/5 or better Target Visit 12 PT Problem 3 PT Problem #3 Impaired Flexibility PT Goal 1 Goal 1. improve bilateral hamstrings flexibility to 20 degrees or less from 0 per the 90/90 test 2. mild bilateral piriformis tightness 3. mild or less hip flexor and quadriceps mm tightness Target Visit 12 PT Problem 4 PT Problem #4 Impaired Functional Mobil PT Goal 1 Goal 1. patient to bend over and reach shoes to tie them 2. patient to complete yard work for 1 hour without needing to sit to rest 3. LEFS to display 30% or less functional deficits 4. patient to squat and lift 30lbs with safe body mechanics Target Visit 12
--- NOTE | 2023-02-08 10:52 | PTOPEVAL1 ---
Assessment and note entered by JT File, PT Evaluation Information Assessment Status Evaluation Diagnosis pain in R hip, pain in L hip Onset 02/07/23 Subjective Information patient reports he has been having pain in his bilateral hips for about 1 month. he reports the pain has gradually been getting worse and worse. he reports pain is in both hips. he reports he had an xray recently of the bilateral hips. he reports although the pain is worse in the L hip, the R hip is worse on imaging. he reports he has increased pain with pronlonged sitting. he reports he is unable to bend down and tie his shoes. he reports he has to take breaks to do yard and home activities. Reported Pain Level Pain Score 4,5: Self Report Assessment PT Clinical Summary mr. schultz is an 83 yo man who presents to skilled PT services for evaluation and treatment of bilateral hip pain. he presents with decreased bilateral hip rom, tight hip muscles, and weakness of the hips. she presents with signs and symptoms of bilateral hip OA and lumbar DDD. he would benefit from continued skilled PT to address his objective/functional deficits and progress towards a return to his prior level functional activity performance/quality of life. Plan of Care Interventions Gait Training,Manual Therapy,Neuro Re-education, Patient/Caregiver Educati,Therapeutic Activities, Therapeutic Exercise PT Services Indicated Yes Treatment Frequency and 3x weekly for 12 visits Duration These treatments will address the objective and functional deficits as defined above. The patient will be advanced safely and appropriately in order for the patient to progress towards his/her prior level of function. Additional exercises will be introduced and as well as a comprehensive home exercise program upon discharge, if needed, ?to ensure carryover of functional gains achieved in the clinic. This treatment plan has been reviewed and agreement upon by the patient.
--- NOTE | 2023-03-07 11:54 | PTOPEVAL1 ---
Assessment and note entered by José Luis Hart Evaluation Information Assessment Status Progress Diagnosis pain in R hip, pain in L hip Onset 02/07/23 Subjective Information Pt. reports little change in his pain levels. He reports that he still has difficulty with bending forward to be able to reach his shoes. Reported Pain Level Pain Score 3,3: Self Report Assessment PT Clinical Summary Pt. has attende a total of 10 treatments session. Treatment thus far has focused on trunk mobility and core stability. At this time continue to with the pt. initial POC focusing on adding addtional manual techniques to promote improved tissue mobility and pain decrease. Continue to establish improved trunk mobility and educate regarding body mechanics with at home activities. Plan of Care Interventions Gait Training,Hot Pack/Cold Pack,Manual Therapy, Mechanical Traction,Neuro Re-education,Patient/ Caregiver Educati,Therapeutic Activities, Therapeutic Exercise PT Services Indicated Yes Treatment Frequency and Continue with remaining 2 sessions on POC with Duration additional manual technique to attempt to reduce pain. Continue to advance core strengthening and discuss body mechanics with at home activities. These treatments will address the objective and functional deficits as defined above. The patient will be advanced safely and appropriately in order for the patient to progress towards his/her prior level of function. Additional exercises will be introduced and as well as a comprehensive home exercise program upon discharge, if needed, ?to ensure carryover of functional gains achieved in the clinic. This treatment plan has been reviewed and agreement upon by the patient.
--- NOTE | 2023-03-11 11:52 | OPREHPOC ---
Outpatient Therapy Plan of Care This is a Multidisciplinary Plan of Care that may contain components documented by all disciplines (PT, OT, and ST.) PT Problem 1 PT Problem #1 Knowledge Deficit PT Goal 1 Goal 1. independent and compliant with HEP Target Visit 6 Progress Met PT Problem 2 PT Problem #2 Impaired Strength PT Goal 1 Goal 1. improve bilateral hip abd strength to 4+/5 or better Target Visit 12 Progress Not Met PT Problem 3 PT Problem #3 Impaired Flexibility PT Goal 1 Goal 1. improve bilateral hamstrings flexibility to 20 degrees or less from 0 per the 90/90 test 2. mild bilateral piriformis tightness 3. mild or less hip flexor and quadriceps mm tightness Target Visit 12 Progress Not Met PT Problem 4 PT Problem #4 Impaired Functional Mobil PT Goal 1 Goal 1. patient to bend over and reach shoes to tie them 2. patient to complete yard work for 1 hour without needing to sit to rest 3. LEFS to display 30% or less functional deficits 4. patient to squat and lift 30lbs with safe body mechanics Target Visit 12 Progress Not Met
--- NOTE | 2023-03-11 11:53 | PTOPREEVAL ---
Assessment and note entered by JT File, PT Evaluation Information Assessment Status Re-evaluation Diagnosis pain in R hip, pain in L hip Onset 02/07/23 Subjective Information patient reports he is better overall. however, he reports he still has pain in the back of the L hip /lower back. he reports his pain is increased with bending forward to tie his shoes, and standing. Reported Pain Level Pain Score 1,0: Self Report Assessment PT Clinical Summary mr. reina presents to skilled PT for his 12th skilled therapy visit today. he presents today with continued weakness in the bilateral hip abductors, pain in the posterior L hip/buttock/ lower back. he also presents with inability to safely lift weight from the floor and bend to tie his shoes without pain. he was educated on the benefits of continued skilled PT, but patient would like to trial exercises on his own at home for a few weeks. plan to hold therapy and follow up via phone with patient in 2-3 weeks regarding needs to DC or return to skilled PT Plan of Care Interventions Gait Training,Hot Pack/Cold Pack,Manual Therapy, Mechanical Traction,Neuro Re-education,Patient/ Caregiver Educati,Therapeutic Activities, Therapeutic Exercise PT Services Indicated Yes Treatment Frequency and hold therapy for 2 weeks. follow up with patient Duration via phone. These treatments will address the objective and functional deficits as defined above. The patient will be advanced safely and appropriately in order for the patient to progress towards his/her prior level of function. Additional exercises will be introduced and as well as a comprehensive home exercise program upon discharge, if needed, ?to ensure carryover of functional gains achieved in the clinic. This treatment plan has been reviewed and agreement upon by the patient.
== END 2023-03-11 20:00 | disposition home or self-care (01) ==
LOC: CHSPT 09:24
PROVIDERS: Visit Provider Family Medicine
DX: M25.551 Pain in right hip (principal)
CPT/HCPCS: 97110; 97140; 97161; 97530

== ENCOUNTER 2023-05-17 22:05 | Outpatient (NON) | payer MEDICARE, SELFPAY | END 2023-05-17 22:06 | disposition home or self-care (01) | LOC: ANHGOSHLAB 22:08 | PROVIDERS: PCP Family Medicine; Visit Provider Family Medicine | DX: L98.9 Disorder of the skin and subcutaneous tissue, unspecified (principal) | CPT/HCPCS: 87070; 87205 ==

== ENCOUNTER 2023-07-19 13:56 | Outpatient (CLI) | payer MEDICARE, SELFPAY ==
[2023-07-19 19:44] LABS: Alanine Aminotransferase 21 U/L (6-50); Albumin Level 4.2 g/dL (3.5-5.1); Alkaline Phosphatase 84 U/L (38-126); Anion Gap 5 mmol/L (4-12); Aspartate Amino Transferase 26 U/L (17-59); Bilirubin,Total 1.1 mg/dL (0.2-1.3); Blood Urea Nitrogen 19 mg/dL (9-20); Carbon Dioxide 27 mmol/L (22-30); Chloride 107 mmol/L (98-107); Estimated Glomerular Filt Rate > 60; Glucose 99 mg/dL (65-110); Potassium 3.9 mmol/L (3.4-5.0); Sodium 139 mmol/L (137-145)
[2023-07-19 20:25] LABS: Hemoglobin A1C 5.6 % (<5.7)
== END 2023-07-19 13:57 | disposition home or self-care (01) ==
LOC: ANHGOSHLAB 13:57
PROVIDERS: PCP Family Medicine; Visit Provider Family Medicine
DX: R73.9 Hyperglycemia, unspecified (principal); Z13.228 Encounter for screening for other metabolic disorders
CPT/HCPCS: 36415; 80053; 83036

== ENCOUNTER 2023-09-05 04:24 | Day surgery (SDC) | payer MEDICARE, SELFPAY ==
--- NOTE | 2023-08-22 15:13 | PC.NURSE ---
Report to the Outpatient Waiting Room, entrance under the green pavilion located off [facility], at time _10 AM on date __09/05/23 . Planned Procedure Time: __1200 . Time changes happen often and if your time is changed the preop area will call you the afternoon before. - You and your visitor will be asked to self-screen and do not enter if you have any COVID symptoms. - A mask is optional within the hospital at this time. Patients may have clear liquids (water, carbonated beverages, clear teas, apple juice) until 3 hours prior to surgery( 9:00 AM) with a maximum of 20 ounces. - No food from midnight until time of surgery - Infants may have breast milk until 4 hours before surgery, infant formula 6 hours prior to surgery. - Children will be allowed to drink immediately following surgery. If applicable, please bring a bottle or sippy cup to assist with drinking. Juice, water, soda, and popsicles are readily available. For infants on formula, please bring formula the day of surgery. Pacifiers are allowed. Take the following medications with a SIP of water the morning of surgery: ___TRELEGY INHALER ,SOTALOL DO NOT STOP ANY OF YOUR OTHER PRESCRIPTION MEDICATIONS PRIOR TO SURGERY ?EXCEPT THE FOLLOWING Medications to discontinue per physician ___HOLD ALL VITAMINS AND SUPPLEMENTS 3 DAYS PRE OP .LAST DOSE 09/01/23. WILL CALL DR QUAN REGARDING WHEN TO HOLD ELIQUIS Please no make-up, nail pitcairn islander, hairspray, perfume, deodorant, or body powder the day of surgery. No jewelry (including any body piercings) or valuables the day of surgery, leave them at home. Please take a shower or bath the night before, or the morning of, surgery with an antibacterial soap. Wear comfortable, loose fitting clothing. Children are encouraged to wear pajamas. - Jewelry must be removed prior to entering the operating room. Rings and piercings that are not removed may be cut off. - The hospital will not accept responsibility for valuables. - Please leave all valuables, including medications, at home the day of surgery. If you are going home after surgery, a licensed commercial driver must drive you home. - NO public transportation without another adult if you receive anesthesia. - We recommend that an adult stay with you for 24 hours following discharge. - We also recommend that you do not drive, make important decision, drink alcoholic beverages, or take any drugs that were not prescribed by your health care provider for at least 24 hours after your discharge time. For Pediatric surgeries, we recommend two adults accompany the child home. Follow any additional instructions given to you from your surgeon. If you or anyone in your household have experienced Covid symptoms in the past week, please notify your surgeon or the nurse liaison at the phone number below for possible testing. Telephone instructions given to __[facility] and asked if any additional questions and then verbalized understanding. Patient advised to call surgeon office or pre surgery nurse liaison [phone] if any additional questions.
[2023-08-22 15:24] VITALS: BMI 39.4
--- NOTE | 2023-09-01 07:44 | PM.IMHP ---
H&P: HPI History of Present Illness Date/Time: 09/01/23 07:44 Chief Complaint: Patient has numbness and tingling right hand had an EMG that shows carpal tunnel syndrome. He has failed conservative treatment and would like to consider surgical release. Review of Systems Musculoskeletal: Musculoskeletal: Reports arthralgias and Reports joint swelling Comments: Numbness in both hands PMFSH Past Medical History Medical History (Updated 08/16/23 @ 13:54 by Tan Guan MD) Atrial fibrillation History of pacemaker Sleep apnea Surgical History Surgical History (Updated 08/16/23 @ 13:41 by Lydia Huang [facility]) History of cholecystectomy History of hernia repair History of shoulder surgery 2016 History of toe surgery Family History Family History Mother Family history of malignant neoplasm Father Heart disease Sibling Cancer Social History Social History (Updated 08/16/23 @ 13:35 by Dianne Armstrong [facility]) Social History: caffeine- 1 diet coke a few days a week Smoking status: Never smoker Alcohol intake: never Substance use: never Substance use type: does not use Do You Feel Safe in your Home?: Yes Lack of Transportation: No Lack of Food: Never True Current Housing: I Have Housing Concerned About Future Housing: No Difficulty Paying Gas/Electric Bills: No Difficulty Paying for Meds: No Currently Unemployed: No Education: High School Diploma/GED Difficulty w/ Childcare or Family Care: No Living arrangements: with family Occupation/Education: retired Gender identity (if verbalized by the patient): Male Spiritual care concerns: No Meds Home Medications and Allergies Home Medications Medication Instructions Recorded Confirmed Type apixaban 5 mg tablet (Eliquis) 5 mg PO BID 04/10/19 08/22/23 History atorvastatin 10 mg tablet (Lipitor) 10 mg PO DAILY 04/10/19 08/22/23 History loratadine 10 mg tablet 10 mg PO DAILY 04/24/19 08/22/23 History magnesium 250 mg tablet 250 mg PO DAILY 04/24/19 08/22/23 History vit C 250 mg-vit E 90 mg-zinc 40 1 tablet PO BID 04/24/19 08/22/23 History mg-copper 1 [id number] capsule (PreserVision AREDS-2) sotalol 80 mg tablet 80 mg PO Q12H 09/20/19 08/22/23 History ascorbic acid (vitamin C) 500 mg 500 mg PO DAILY 02/18/22 08/22/23 History capsule nebulizer and compressor #1 ea 03/05/22 07/19/23 Rx cholecalciferol (vitamin D3) 50 1,000 unit PO DAILY 06/22/22 08/22/23 History mcg (2,000 unit) tablet losartan 100 1 tablet PO DAILY #30 tabs 06/10/23 08/22/23 Rx mg-hydrochlorothiazide 12.5 mg tablet omeprazole 40 mg capsule,delayed 40 mg PO DAILY #30 caps 06/10/23 08/22/23 Rx release albuterol sulfate 90 mcg/actuation 1 inh inhalation QID PRN Shortness 07/19/23 08/22/23 Rx aerosol inhaler (Proventil HFA) Of Breath #8.5 grams acetaminophen 500 mg capsule 500 mg PO PRN PRN Pain 08/22/23 08/22/23 History fluticasone fur. 100 mcg-umeclid 1 inh inhalation PRN PRN Shortness 08/22/23 08/22/23 History 62.5 mcg-vilant 25 mcg Of Breath inhalat.powder (Trelegy Ellipta) Allergies Allergy/AdvReac Type Severity Reaction Status Date / Time cat dander Allergy Severe Difficulty Verified 08/22/23 15:01 Breathing latex Allergy Intermediate Rash Verified 08/22/23 15:01 acetaminophen [From NyQuil] Allergy Mild Hives Verified 08/22/23 15:01 dextromethorphan Allergy Mild Hives Verified 08/22/23 15:01 [From NyQuil] doxylamine [From NyQuil] Allergy Mild Hives Verified 08/22/23 15:01 pseudoephedrine [From NyQuil] Allergy Mild Hives Verified 08/22/23 15:01 Exam Narrative: Patient has numbness both hands him in the median nerve distribution. Eyes: General: appearance normal, both eyes and all related structures Neck: Neck: supple Resp: Effort & Inspection: normal respiratory effort Cardio: Rate: regular rate Rhythm: regular
--- NOTE | 2023-09-05 06:59 | WPDHPUPDATE1 ---
History and Physical Update Update Date/Time: 09/05/23 06:59 History and Physical has been reviewed, including an updated exam of the patient. There are NO changes in the patient's condition. Risks, benefits, and alternatives have been discussed and questions answered. Patient agrees to proceed with procedure.
[2023-09-05 08:38] VITALS: BP 140/81; PULSE 80; RESP 18; TEMP 36.6; O2SAT 100
[2023-09-05] MEDS: LACTATED RINGERS 1,000 ML 30 ML IV CONT (09:05)
[2023-09-05] MEDS: ACETAMINOPHEN 500 MG TABLET 1000 MG PO (09:20)
[2023-09-05] MEDS: KETOROLAC 15 MG/ML VIAL (*BKC) IV PUSH (09:20)
[2023-09-05 09:28] VITALS: BMI 39.9
--- NOTE | 2023-09-05 09:45 | SUR.PREOP ---
0945- Per Dr. Guan do not perform shave in pre-op.
--- NOTE | 2023-09-05 09:56 | WPDANESEPPF ---
Anes - Initial Pre Proc Eval Procedure: Operation Date: 09/05/23 10:30 Proposed Procedures p Right Carpal Tunnel Release - Tan Guan MD Date/Time: 09/05/23 09:56 Surgeon: Tan Guan MD Pre Op Diagnosis: Right Carpal Tunnel syndrome Patient Data Age: 83 Gender: M Height: 1.78 m Weight: 126.4 kg Last Vital Signs Temp 36.6 C 09/05/23 08:38 Pulse 80 09/05/23 08:38 Resp 18 09/05/23 08:38 BP 140/81 09/05/23 08:38 Pulse Ox 100 09/05/23 08:38 O2 Del Method Room Air 09/05/23 08:38 Allergies Allergy/AdvReac Type Severity Reaction Status Date / Time cat dander Allergy Severe Difficulty Verified 08/22/23 15:01 Breathing latex Allergy Intermediate Rash Verified 08/22/23 15:01 acetaminophen [From NyQuil] Allergy Mild Hives Verified 08/22/23 15:01 dextromethorphan Allergy Mild Hives Verified 08/22/23 15:01 [From NyQuil] doxylamine [From NyQuil] Allergy Mild Hives Verified 08/22/23 15:01 pseudoephedrine [From NyQuil] Allergy Mild Hives Verified 08/22/23 15:01 Home Medications Medication Instructions Recorded Confirmed Type apixaban 5 mg tablet (Eliquis) 5 mg PO BID 04/10/19 08/22/23 History atorvastatin 10 mg tablet (Lipitor) 10 mg PO DAILY 04/10/19 08/22/23 History loratadine 10 mg tablet 10 mg PO DAILY 04/24/19 08/22/23 History magnesium 250 mg tablet 250 mg PO DAILY 04/24/19 08/22/23 History vit C 250 mg-vit E 90 mg-zinc 40 1 tablet PO BID 04/24/19 08/22/23 History mg-copper 1 [id number]-qsovzj capsule (PreserVision AREDS-2) sotalol 80 mg tablet 80 mg PO Q12H 09/20/19 08/22/23 History ascorbic acid (vitamin C) 500 mg 500 mg PO DAILY 02/18/22 08/22/23 History capsule nebulizer and compressor #1 ea 03/05/22 07/19/23 Rx cholecalciferol (vitamin D3) 50 1,000 unit PO DAILY 06/22/22 08/22/23 History mcg (2,000 unit) tablet losartan 100 1 tablet PO DAILY #30 tabs 06/10/23 08/22/23 Rx mg-hydrochlorothiazide 12.5 mg tablet omeprazole 40 mg capsule,delayed 40 mg PO DAILY #30 caps 06/10/23 08/22/23 Rx release albuterol sulfate 90 mcg/actuation 1 inh inhalation QID PRN Shortness 07/19/23 08/22/23 Rx aerosol inhaler (Proventil HFA) Of Breath #8.5 grams acetaminophen 500 mg capsule 500 mg PO PRN PRN Pain 08/22/23 08/22/23 History fluticasone fur. 100 mcg-umeclid 1 inh inhalation PRN PRN Shortness 08/22/23 08/22/23 History 62.5 mcg-vilant 25 mcg Of Breath inhalat.powder (Trelegy Ellipta) Patient hx anesthesia problems: none Family hx anesthesia problems: none Results Review: All pre-operative results and documents have been reviewed as part of the pre-operative evaluation. [facility] Past Medical History Medical History Atrial fibrillation History of pacemaker Sleep apnea Surgical History Surgical History History of cholecystectomy History of hernia repair History of shoulder surgery 2016 History of toe surgery Family History Family History Mother Family history of malignant neoplasm Father Heart disease Sibling Cancer Social History Social History Social History: caffeine- 1 diet coke a few days a week Smoking status: Never smoker Alcohol intake: never Substance use: never Substance use type: does not use Do You Feel Safe in your Home?: Yes Lack of Transportation: No Lack of Food: Never True Current Housing: I Have Housing Concerned About Future Housing: No Difficulty Paying Gas/Electric Bills: No Difficulty Paying for Meds: No Currently Unemployed: No Education: High School Diploma/GED Difficulty w/ Childcare or Family Care: No Living arrangements: with family Occupation/Education: retired Gender identity (if verbalized by the patient): Male Spiritual care co
[2023-09-05] MEDS: ceFAZolin 3 GM/D5W 100 ML 100 ML IVPB (10:36)
[2023-09-05] MEDS: LIDOCAINE HCL 1% LOCAL INJ 10 ML VIAL INFILTRATE (10:51)
--- NOTE | 2023-09-05 10:56 | P.OP_ITS ---
Procedure Note - Detailed Date of Procedure 09/05/23 Pre-op Diagnosis Right Carpal Tunnel syndrome Post-op Diagnosis Same Procedure Performed RIGHT carpal tunnel release Surgeon Tan Guan MD Anesthesia MAC Indications Pain and Numbness Description of Procedure A general anesthetic was administered. After sterile prep and drape, I injected the area of intended incision with 10ml of 1% lidocaine. A longitudinal incision was made in line with the ulnar boarder of the third finger. Dissection carried down to the fascia, the fascia split and the carpal ligament identified. The carpal ligament was released and the flexor retinaculum was released as well. The nerve was noted to be red purple in color and in continuity. The wound was irrigated, hemostasis was obtained and closed with 3- 0 prolene. Estimated Blood Loss 5 Drains No Packing No Pathology None sent Complications No immediate complications Condition Stable Disposition Same day [facility] Billing Surgery - Charge Forward: Surgery Billing ([id number] Carpal Tunnel)
[2023-09-05 11:10] VITALS: BP 102/53; PULSE 80; RESP 12; O2SAT 96
[2023-09-05 11:40] VITALS: BP 129/83; PULSE 81; RESP 12
--- NOTE | 2023-09-05 12:15 | SUR.PHASEII ---
DR. HAIR SAID PATIENT MAY RESUME ELIQUIS THIS EVENING.
== END 2023-09-05 12:05 | disposition home or self-care (01) ==
PROVIDERS: PCP Family Medicine; Visit Provider Orthopaedic Surgery
PROC: (CPT 64721; principal; 2023-09-05 10:30)
DX: G56.01 Carpal tunnel syndrome, right upper limb (principal); I48.91 Unspecified atrial fibrillation; G47.30 Sleep apnea, unspecified; Z95.0 Presence of cardiac pacemaker; Z79.01 Long term (current) use of anticoagulants; Z79.51 Long term (current) use of inhaled steroids; E66.01 Morbid (severe) obesity due to excess calories; Z68.41 Body mass index [BMI] 40.0-44.9, adult
CPT/HCPCS: 64721; A9270; J0690; J1885; J2704; J3010; J7120

== ENCOUNTER 2023-09-12 13:28 | Emergency (ER) | payer MEDICARE, SELFPAY ==
[2023-09-12 13:41] VITALS: BP 128/83; PULSE 80; RESP 20; TEMP 36.4; O2SAT 100
--- NOTE | 2023-09-12 14:09 | ED.SKABFB ---
HPI - Skin/Abscess/Foreign Bdy General Chief complaint: Skin/Abscess/Foreign Body Stated complaint: rash Time Seen by Provider: 09/12/23 14:00 Source: patient, family () and RN notes reviewed Mode of arrival: ambulatory Limitations: no limitations History of Present Illness HPI narrative: Patient presents today complaining of possible poison jed or poison oak to his left arm x5 days. He has been applying calamine lotion with mild relief. Patient is also 1 week out from carpal tunnel surgery on the right wrist. Related Data Home Medications Medication Instructions Recorded Confirmed apixaban 5 mg tablet (Eliquis) 5 mg PO BID 04/10/19 09/12/23 atorvastatin 10 mg tablet (Lipitor) 10 mg PO DAILY 04/10/19 09/12/23 loratadine 10 mg tablet 10 mg PO DAILY 04/24/19 09/12/23 magnesium 250 mg tablet 250 mg PO DAILY 04/24/19 09/12/23 vit C 250 mg-vit E 90 mg-zinc 40 1 tablet PO BID 04/24/19 09/12/23 mg-copper 1 [id number]-evcewq capsule (PreserVision AREDS-2) sotalol 80 mg tablet 80 mg PO Q12H 09/20/19 09/12/23 ascorbic acid (vitamin C) 500 mg 500 mg PO DAILY 02/18/22 09/12/23 capsule cholecalciferol (vitamin D3) 50 1,000 unit PO DAILY 06/22/22 09/12/23 mcg (2,000 unit) tablet acetaminophen 500 mg capsule 500 mg PO PRN PRN Pain 08/22/23 09/12/23 fluticasone fur. 100 mcg-umeclid 1 inh inhalation PRN PRN Shortness 08/22/23 09/12/23 62.5 mcg-vilant 25 mcg Of Breath inhalat.powder (Trelegy Ellipta) Allergies Allergy/AdvReac Type Severity Reaction Status Date / Time cat dander Allergy Severe Difficulty Verified 09/12/23 13:47 Breathing latex Allergy Intermediate Rash Verified 09/12/23 13:47 dextromethorphan Allergy Mild Hives Verified 09/12/23 13:47 [From NyQuil] doxylamine [From NyQuil] Allergy Mild Hives Verified 09/12/23 13:47 pseudoephedrine [From NyQuil] Allergy Mild Hives Verified 09/12/23 13:47 Review of Systems Review of Systems: CONSTITUTIONAL: Denies body aches, fever, chills, or sweats. EYES: Denies visual changes, redness, or discharge. ENT: Denies rhinorrhea, congestion, sore throat, or otalgia. CARDIOVASCULAR: Denies chest pain, palpitations, or edema. RESPIRATORY: Denies cough or dyspnea. GASTROINTESTINAL: Denies abdominal pain, nausea, vomiting, or diarrhea. GENITOURINARY: Denies dysuria or hematuria. SKIN: + pruritic rash to left arm MUSCULOSKELETAL: Denies back pain, joint pain, or myalgia. NEUROLOGIC: Denies headache, numbness, tingling, or weakness. PSYCH: Denies depression or anxiety. [facility] Past Medical History Medical History Atrial fibrillation History of pacemaker Sleep apnea Surgical History Surgical History History of cholecystectomy History of hernia repair History of shoulder surgery 2016 History of toe surgery Family History Family History Mother Family history of malignant neoplasm Father Heart disease Sibling Cancer Social History Social History Social History: caffeine- 1 diet coke a few days a week Smoking status: Never smoker Alcohol intake: never Substance use: never Substance use type: does not use Do You Feel Safe in your Home?: Yes Lack of Transportation: No Lack of Food: Never True Current Housing: I Have Housing Concerned About Future Housing: No Difficulty Paying Gas/Electric Bills: No Difficulty Paying for Meds: No Currently Unemployed: No Education: High School Diploma/GED Difficulty w/ Childcare or Family Care: No Living arrangements: with family Occupation/Education: retired Gender identity (if verbalized by the patient): Male Spiritual care concerns: No Comments At time of signature, I have reviewed and agree with nursing past medical, surgical, social
== END 2023-09-12 14:13 | disposition home or self-care (01) ==
PROVIDERS: Emergency Provider Nurse Practitioner; PCP Family Medicine
DX: L25.9 Unspecified contact dermatitis, unspecified cause (principal); I48.91 Unspecified atrial fibrillation; Z95.0 Presence of cardiac pacemaker; Z79.01 Long term (current) use of anticoagulants
CPT/HCPCS: 99213; G0463

== ENCOUNTER 2023-10-07 10:30 | Outpatient (CLI) | payer MEDICARE, SELFPAY ==
[2023-10-07 11:04] LABS: Anion Gap 4 mmol/L (4-12); Blood Urea Nitrogen 18 mg/dL (9-20); Carbon Dioxide 31 mmol/L (22-30); Chloride 105 mmol/L (98-107); Estimated Glomerular Filt Rate > 60; Glucose 94 mg/dL (65-110); Potassium 3.9 mmol/L (3.4-5.0); Sodium 140 mmol/L (137-145)
== END 2023-10-07 10:31 | disposition home or self-care (01) ==
LOC: ANHSURGERY 10:38
PROVIDERS: Anesthesiology; PCP Family Medicine; Visit Provider Orthopaedic Surgery
DX: Z79.899 Other long term (current) drug therapy (principal); Z01.818 Encounter for other preprocedural examination
CPT/HCPCS: 36415; 80048

== ENCOUNTER 2023-10-12 01:02 | Day surgery (SDC) | payer MEDICARE, SELFPAY ==
--- NOTE | 2023-10-03 15:22 | PC.NURSE ---
Report to the Outpatient Waiting Room, entrance under the green pavilion located off [facility], at time _8:00 AM on date ___10/12/23____. Planned Procedure Time: _1000 AM . Time changes happen often and if your time is changed the preop area will call you the afternoon before. - You and your visitor will be asked to self-screen and do not enter if you have any COVID symptoms. - A mask is optional within the hospital at this time. Patients may have clear liquids (water, carbonated beverages, clear teas, apple juice) until 3 hours prior to surgery( 7:00 AM) with a maximum of 20 ounces. - No food from midnight until time of surgery - Infants may have breast milk until 4 hours before surgery, infant formula 6 hours prior to surgery. - Children will be allowed to drink immediately following surgery. If applicable, please bring a bottle or sippy cup to assist with drinking. Juice, water, soda, and popsicles are readily available. For infants on formula, please bring formula the day of surgery. Pacifiers are allowed. Take the following medications with a SIP of water the morning of surgery: _SOTALOL, TRELEGY ELLIPTA INHALER DO NOT STOP ANY OF YOUR OTHER PRESCRIPTION MEDICATIONS PRIOR TO SURGERY ?EXCEPT THE FOLLOWING Medications to discontinue per physician ____ELIQUIS HOLD 5 DA[address] PT STATES PER DR HAIR. LAST DOSE 10/06/23. HOLD ALL VITAMINS AND SUPPLEMENTS 3 DAYS PRE OP.LAST DOSE 10/08/23 Please no make-up, nail greek, hairspray, perfume, deodorant, or body powder the day of surgery. No jewelry (including any body piercings) or valuables the day of surgery, leave them at home. Please take a shower or bath the night before, or the morning of, surgery with an antibacterial soap. Wear comfortable, loose fitting clothing. Children are encouraged to wear pajamas. - Jewelry must be removed prior to entering the operating room. Rings and piercings that are not removed may be cut off. - The hospital will not accept responsibility for valuables. - Please leave all valuables, including medications, at home the day of surgery. If you are going home after surgery, a licensed emt driver must drive you home. - NO public transportation without another adult if you receive anesthesia. - We recommend that an adult stay with you for 24 hours following discharge. - We also recommend that you do not drive, make important decision, drink alcoholic beverages, or take any drugs that were not prescribed by your health care provider for at least 24 hours after your discharge time. Follow any additional instructions given to you from your surgeon. If you or anyone in your household have experienced Covid symptoms in the past week, please notify your surgeon or the nurse liaison at the phone number below for possible testing. Telephone instructions given to __PATIENT and asked if any additional questions and then verbalized understanding. Patient advised to call surgeon office or pre surgery nurse liaison [phone] if any additional questions.
[2023-10-03 15:39] VITALS: BMI 39.4
--- NOTE | 2023-10-11 09:40 | PM.IMHP ---
H&P: HPI History of Present Illness Date/Time: 10/11/23 09:40 Chief Complaint: Patient is numbness and tingling left hand consistent carpal tunnel syndrome. Review of Systems Musculoskeletal: Musculoskeletal: Reports arthralgias, Reports joint swelling and Reports stiffness [facility] Past Medical History Medical History Atrial fibrillation History of pacemaker Sleep apnea Surgical History Surgical History History of cholecystectomy History of hernia repair History of shoulder surgery 2016 History of toe surgery Family History Family History Mother Family history of malignant neoplasm Father Heart disease Sibling Cancer Social History Social History Social History: caffeine- 1 diet coke a few days a week Smoking status: Never smoker Alcohol intake: never Substance use: never Substance use type: does not use Current Housing: Decline to Answer Concerned About Future Housing: Decline to Answer Difficulty Paying Gas/Electric Bills: Decline to Answer Difficulty Paying for Meds: Decline to Answer Currently Unemployed: Decline to Answer Education: Decline to Answer Difficulty w/ Childcare or Family Care: Decline to Answer Living arrangements: with family Occupation/Education: retired Gender identity (if verbalized by the patient): Male Spiritual care concerns: No Meds Home Medications and Allergies Home Medications Medication Instructions Recorded Confirmed Type apixaban 5 mg tablet (Eliquis) 5 mg PO BID 04/10/19 10/03/23 History atorvastatin 10 mg tablet (Lipitor) 10 mg PO DAILY 04/10/19 10/03/23 History loratadine 10 mg tablet 10 mg PO DAILY 04/24/19 10/03/23 History magnesium 250 mg tablet 250 mg PO DAILY 04/24/19 10/03/23 History vit C 250 mg-vit E 90 mg-zinc 40 1 tablet PO BID 04/24/19 10/03/23 History mg-copper 1 zs-kjedhe-ffyqhi capsule (PreserVision AREDS-2) sotalol 80 mg tablet 80 mg PO Q12H 09/20/19 10/03/23 History ascorbic acid (vitamin C) 500 mg 500 mg PO DAILY 02/18/22 10/03/23 History capsule nebulizer and compressor #1 ea 03/05/22 09/20/23 Rx cholecalciferol (vitamin D3) 50 1,000 unit PO DAILY 06/22/22 10/03/23 History mcg (2,000 unit) tablet losartan 100 1 tablet PO DAILY #30 tabs 06/10/23 10/03/23 Rx mg-hydrochlorothiazide 12.5 mg tablet omeprazole 40 mg capsule,delayed 40 mg PO DAILY #30 caps 06/10/23 10/03/23 Rx release albuterol sulfate 90 mcg/actuation 1 inh inhalation QID PRN Shortness 07/19/23 10/03/23 Rx aerosol inhaler (Proventil HFA) Of Breath #8.5 grams acetaminophen 500 mg capsule 500 mg PO PRN PRN Pain 08/22/23 10/03/23 History fluticasone fur. 100 mcg-umeclid 1 inh inhalation PRN PRN Shortness 08/22/23 10/03/23 History 62.5 mcg-vilant 25 mcg Of Breath inhalat.powder (Trelegy Ellipta) triamcinolone acetonide 0.1 % 1 applic topical BID #30 grams 09/12/23 10/03/23 Rx topical cream Allergies Allergy/AdvReac Type Severity Reaction Status Date / Time cat dander Allergy Severe Difficulty Verified 10/03/23 15:19 Breathing latex Allergy Intermediate Rash Verified 10/03/23 15:19 dextromethorphan Allergy Mild Hives Verified 10/03/23 15:19 [From NyQuil] doxylamine [From NyQuil] Allergy Mild Hives Verified 10/03/23 15:19 pseudoephedrine [From NyQuil] Allergy Mild Hives Verified 10/03/23 15:19 Exam Narrative: Patient is numbness in his median nerve fingers. He has got a positive Phalen's carpal tunnel compression tests a positive EMG. Eyes: General: appearance normal, both eyes and all related structures Neck: Neck: supple Resp: Effort & Inspection: normal respiratory effort Cardio: Rate: regular rate Rhythm: regular rhythm Hip X-Ray 02/03/23 Wrist X-Ray
[2023-10-12 06:27] VITALS: BP 131/76; PULSE 80; RESP 20; TEMP 36.4; O2SAT 99
--- NOTE | 2023-10-12 06:47 | WPDHPUPDATE1 ---
History and Physical Update Update Date/Time: 10/12/23 06:47 History and Physical has been reviewed, including an updated exam of the patient. There are NO changes in the patient's condition. Risks, benefits, and alternatives have been discussed and questions answered. Patient agrees to proceed with procedure.
--- NOTE | 2023-10-12 06:51 | WPDANESEPPF ---
Anes - Initial Pre Proc Eval Procedure: Operation Date: 10/12/23 07:30 Proposed Procedures p Left Carpal Tunnel Release - Tan Guan MD Date/Time: 10/12/23 06:51 Surgeon: Tan Guan MD Pre Op Diagnosis: Left Carpal Tunnel Syn Patient Data Age: 83 Gender: M Height: 1.78 m Weight: 124.75 kg Allergies Allergy/AdvReac Type Severity Reaction Status Date / Time cat dander Allergy Severe Difficulty Verified 10/03/23 15:19 Breathing latex Allergy Intermediate Rash Verified 10/03/23 15:19 dextromethorphan Allergy Mild Hives Verified 10/03/23 15:19 [From NyQuil] doxylamine [From NyQuil] Allergy Mild Hives Verified 10/03/23 15:19 pseudoephedrine [From NyQuil] Allergy Mild Hives Verified 10/03/23 15:19 Home Medications Medication Instructions Recorded Confirmed Type apixaban 5 mg tablet (Eliquis) 5 mg PO BID 04/10/19 10/03/23 History atorvastatin 10 mg tablet (Lipitor) 10 mg PO DAILY 04/10/19 10/03/23 History loratadine 10 mg tablet 10 mg PO DAILY 04/24/19 10/03/23 History magnesium 250 mg tablet 250 mg PO DAILY 04/24/19 10/03/23 History vit C 250 mg-vit E 90 mg-zinc 40 1 tablet PO BID 04/24/19 10/03/23 History mg-copper 1 [id number]-tzrwxw-yworws capsule (PreserVision AREDS-2) sotalol 80 mg tablet 80 mg PO Q12H 09/20/19 10/03/23 History ascorbic acid (vitamin C) 500 mg 500 mg PO DAILY 02/18/22 10/03/23 History capsule nebulizer and compressor #1 ea 03/05/22 09/20/23 Rx cholecalciferol (vitamin D3) 50 1,000 unit PO DAILY 06/22/22 10/03/23 History mcg (2,000 unit) tablet losartan 100 1 tablet PO DAILY #30 tabs 06/10/23 10/03/23 Rx mg-hydrochlorothiazide 12.5 mg tablet omeprazole 40 mg capsule,delayed 40 mg PO DAILY #30 caps 06/10/23 10/03/23 Rx release albuterol sulfate 90 mcg/actuation 1 inh inhalation QID PRN Shortness 07/19/23 10/03/23 Rx aerosol inhaler (Proventil HFA) Of Breath #8.5 grams acetaminophen 500 mg capsule 500 mg PO PRN PRN Pain 08/22/23 10/03/23 History fluticasone fur. 100 mcg-umeclid 1 inh inhalation PRN PRN Shortness 08/22/23 10/03/23 History 62.5 mcg-vilant 25 mcg Of Breath inhalat.powder (Trelegy Ellipta) triamcinolone acetonide 0.1 % 1 applic topical BID #30 grams 09/12/23 10/03/23 Rx topical cream Patient hx anesthesia problems: none Family hx anesthesia problems: none Results Review: All pre-operative results and documents have been reviewed as part of the pre-operative evaluation. [facility] Past Medical History Medical History Atrial fibrillation History of pacemaker Sleep apnea Surgical History Surgical History History of cholecystectomy History of hernia repair History of shoulder surgery 2016 History of toe surgery Family History Family History Mother Family history of malignant neoplasm Father Heart disease Sibling Cancer Social History Social History Social History: caffeine- 1 diet coke a few days a week Smoking status: Never smoker Alcohol intake: never Substance use: never Substance use type: does not use Current Housing: Decline to Answer Concerned About Future Housing: Decline to Answer Difficulty Paying Gas/Electric Bills: Decline to Answer Difficulty Paying for Meds: Decline to Answer Currently Unemployed: Decline to Answer Education: Decline to Answer Difficulty w/ Childcare or Family Care: Decline to Answer Living arrangements: with family Occupation/Education: retired Gender identity (if verbalized by the patient): Male Spiritual care concerns: No Anes - Eval Final PreProcedure Day of Procedure 10/12/23 06:51 Patient weight: morbidly obese Heart: regular rate and rhythm Lungs: clear to auscultation Airway: Mallampati scale class II Neurologica
[2023-10-12] MEDS: ACETAMINOPHEN 500 MG TABLET 1000 MG PO (06:58)
[2023-10-12] MEDS: LACTATED RINGERS 1,000 ML 30 ML IV CONT (07:00)
[2023-10-12] MEDS: KETOROLAC 15 MG/ML VIAL (*BKC) IV PUSH (07:05)
[2023-10-12] MEDS: ceFAZolin 3 GM/D5W 100 ML 100 ML IVPB (07:32)
[2023-10-12] MEDS: LIDOCAINE HCL 1% LOCAL INJ 10 ML VIAL 6 ML INFILTRATE (07:51)
--- NOTE | 2023-10-12 08:02 | P.OP_ITS ---
Procedure Note - Detailed Date of Procedure 10/12/23 Pre-op Diagnosis Left Carpal Tunnel Syndrome Post-op Diagnosis Same Procedure Performed LEFT carpal tunnel release Surgeon Tan Guan MD Anesthesia MAC Indications Pain and Numbness Description of Procedure A general anesthetic was administered. After sterile prep and drape, I injected the area of intended incision with 10ml of 1% lidocaine. A longitudinal incision was made in line with the ulnar boarder of the third finger. Dissection carried down to the fascia, the fascia split and the carpal ligament identified. The carpal ligament was released and the flexor retinaculum was released as well. The nerve was noted to be red purple in color and in continuity. The wound was irrigated, hemostasis was obtained and closed with 3- 0 prolene. Estimated Blood Loss 5 Drains No Packing No Pathology None sent Complications No immediate complications Condition Stable Disposition Same day [facility] Billing Surgery - Charge Forward: Surgery Billing ([id number] Carpal Tunnel)
[2023-10-12 08:11] VITALS: BP 101/64; PULSE 81; RESP 16; O2SAT 97
[2023-10-12 08:25] VITALS: BP 97/82; PULSE 88; RESP 16
[2023-10-12 08:40] VITALS: BP 110/70; PULSE 81; RESP 16
== END 2023-10-12 09:00 | disposition home or self-care (01) ==
PROVIDERS: PCP Family Medicine; Visit Provider Orthopaedic Surgery
PROC: (CPT 64721; principal; 2023-10-12 07:30)
DX: G56.02 Carpal tunnel syndrome, left upper limb (principal); I48.91 Unspecified atrial fibrillation; G47.30 Sleep apnea, unspecified; Z79.51 Long term (current) use of inhaled steroids; Z79.01 Long term (current) use of anticoagulants; E66.01 Morbid (severe) obesity due to excess calories; Z68.41 Body mass index [BMI] 40.0-44.9, adult
CPT/HCPCS: 64721; A9270; J0690; J1885; J2704; J3010; J7120

== ENCOUNTER 2024-05-16 13:53 | Outpatient (CLI) | payer MEDICARE, SELFPAY ==
--- OUTSIDE RECORDS SUMMARY | 2024-05-16 13:59 | XMS_ITS | Referral Summary ---
Author Organization [facility] [address] Address [address] [place] [id number] Care Team Providers Care Lithographic Photographer Name Role Phone Unknown, Notinfile Primary Care Provider Unavail able Allergies Active Allergy Reactions Criticality Noted Date Comments Nyquil Hives Medium 01/15/2016 Medications predniSONE (DELTASONE) 10 mg tablet Take 5 tabs (50mg) daily for 2 days, then take 4 tabs (40mg) daily for 2 days. Continue to decrease by 1 tab (10mg) every 2 days until gone. 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 Gender Identity Not on file Sexual Orientation Not on file Last Filed Vital Signs Vital Sign Reading Time Taken Comments Blood Pressure 135/87 05/28/2023 11:41 AM CPR AMBULANCE DRIVER Pulse 83 05/28/2023 11:41 AM CPR AMBULANCE DRIVER Temperature 36.6 C (97.9 F) 05/28/2023 11:41 AM CPR AMBULANCE DRIVER Respiratory Rate 20 05/28/2023 11:41 AM CPR AMBULANCE DRIVER Oxygen Saturation 96% 05/28/2023 11:41 AM CPR AMBULANCE DRIVER Inhaled Oxygen Concentration - - Weight 130.4 kg (287 lb 8 oz) 05/28/2023 11:41 A M CPR AMBULANCE DRIVER Height 172.7 cm (5' 8 ) 05/28/2023 11:41 AM CPR AMBULANCE DRIVER Body Mass Index 43.71 05/28/2023 11:41 AM CPR AMBULANCE DRIVER Plan of Treatment Not on file Insurance PENDING SALE TO [employer] MEDIC[employer] Care Teams Lithographic Photographer Relationship Specialty Start Date End Date Unknown, Notinfile PCP - General 05/28/23
--- OUTSIDE RECORDS SUMMARY | 2024-05-16 13:59 | XMS_ITS | Clinical Summary ---
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 Gender Identity Not on file Sexual Orientation Not on file Obstetrics History Last Filed Vital Signs Vital Sign Reading Time Taken Comments Blood Pressure 135/87 05/28/2023 11:41 AM SOCIAL MEDIA PROJECT MANAGER Pulse 83 05/28/2023 11:41 AM SOCIAL MEDIA PROJECT MANAGER Temperature 36.6 C (97.9 F) 05/28/2023 11:41 AM SOCIAL MEDIA PROJECT MANAGER Respiratory Rate 20 05/28/2023 11:41 AM SOCIAL MEDIA PROJECT MANAGER Oxygen Saturation 96% 05/28/2023 11:41 AM SOCIAL MEDIA PROJECT MANAGER Inhaled Oxygen Concentration - - Weight 130.4 kg (287 lb 8 oz) 05/28/2023 11:41 A M SOCIAL MEDIA PROJECT MANAGER Height 172.7 cm (5' 8 ) 05/28/2023 11:41 AM SOCIAL MEDIA PROJECT MANAGER Body Mass Index 43.71 05/28/2023 11:41 AM SOCIAL MEDIA PROJECT MANAGER Plan of Treatment Health Maintenance Due Date Last Done Comments Depression Screening 1940 Fall Risk Assessment 1940 Hepatitis B Screening 01/28/1958 Well Visit 65+ 2007 Zoster Vaccine (2 of 2) 01/10/2018 11/15/2017 Covid-19 Vaccine (2023-2 5 season) 2023 02/28/2023, 02/01/2022, 08/17/2021, Additional history exists Influenza Vaccine (#1) 2023 , 02/09/2018, 01/02/2018, Additional history exists DTaP/Tdap/Td Vaccine (2 - Td or Tdap) 10/17/2024 10/17/2014 Pneumococcal vaccine 65+ Completed 10/17/2014, 11/2012 Insurance [facility] MEDIC[facility] Care Teams Communications Billing Analyst Relationship Specialty Start Date End Date Unknown, Notinfile PCP - General 05/28/23
[2024-05-16 14:10] LABS: Add Urine Microscopic? NO; Appearance Urine Clear (Clear); Bilirubin Urine Negative (Negative); Blood Urine Negative (Negative); Color Urine Light Yellow (Yellow); Glucose Urine UA Negative (Negative); Ketones Urine Negative (Negative); Leukocyte Esterase Ur Negative LEU/UL (Negative); Nitrate Urine Negative (Negative); Protein Urine Negative (Negative); Urobilinogen Urine 0.2 mg/dL (0.2-1.0); pH Urine 5.5 (5.0-8.0)
== END 2024-05-16 13:54 | disposition home or self-care (01) ==
PROVIDERS: PCP Nurse Practitioner Family; Visit Provider Nurse Practitioner Family
DX: R10.9 Unspecified abdominal pain (principal)
CPT/HCPCS: 81003

== ENCOUNTER 2024-05-18 16:28 | Outpatient (CLI) | payer MEDICARE, SELFPAY ==
--- NOTE | ~2024-05-18 | CT_ITS ---
EXAMINATION: CT abdomen pelvis wo con DATE: 05/18/2024 16:46 INDICATION: Right-sided abdominal pain TECHNIQUE: Computed tomography (CT) of the abdomen and pelvis was performed without intravenous contr ast. Automated exposure control and iterative reconstruction technique were employed. The dose-length product was 1513.19 mGy-cm. COMPARISON: None FINDINGS: Mild discoid atelectasis at the left lower lobe. Heart size is normal. Atherosclerotic coronary arter y calcific location. No pericardial or pleural effusion. Cardiac pacemaker leads terminating at the r ight atrial appendage, near the apex of the right ventricle and in a coronary vein overlying the late ral wall of the left ventricle having traversed the coronary sinus. Cholecystectomy clips the gallbla dder fossa. Tiny calcification in the spleen consistent with old granulomatous disease. Couple dystro phic calcification at the body the pancreas consistent with sequela of chronic pancreatitis. Liver an d left adrenal gland are normal. 2.1 cm low-attenuation right adrenal adenoma. [address] one at the interpolar region of the right kidney. No other urolithiasis including in the left kidney bilateral ureters and no hydronephrosis. There are bilateral parapelvic cysts along with a few parenc hymal cysts at the right kidney the largest measuring 9 cm. 6 mm relatively high density lesion at th e periphery of the lower pole of the left kidney most likely represent proteinaceous/hemorrhagic cyst but too small to definitively characterize. There is moderate colonic diverticulosis with a sigmoid predominance. There is no adjacent inflammatory change to suggest diverticulitis. Small bowel and ap pendix are normal. Bladder is normal. There are moderate-sized bilateral fat-containing inguinal matthew ias. No free intraperitoneal gas or fluid. No pathologically enlarged abdominal or pelvic lymphadenop athy. L5 spondylolysis with bilateral pars intra-articular is defects, 3 mm anterolisthesis on S1 and severe disc space narrowing with degenerative endplate changes at L5-S1. Moderate osteoarthritis and more cephalad lumbar spine. IMPRESSION: 1. 3 mm nonobstructing right renal stone. No ureteral stones, hydronephrosis or other acute intra-abd ominal/pelvic process. 2. Moderate sigmoid diverticulosis. 3. Moderate-sized fat-containing bilateral inguinal hernias. Reviewed, dictated and finalized at location A. IN MAKER IMPRESSION: 1. 3 mm nonobstructing right renal stone. No ureteral stones, hydronephrosis or other acute intra-abdominal/pelvic process. 2. Moderate sigmoid diverticulosis. 3. Moderate-sized fat-containing bilateral inguinal hernias.
--- OUTSIDE RECORDS SUMMARY | 2024-05-18 16:32 | XMS_ITS | Referral Summary ---
Author Organization [facility] [address] Address [address] [place] [phone] Care Team Providers Care Cylinder Worker Name Role Phone Unknown, Notinfile Primary Care [...] on file Legal Sex Male 3:02 AM [employer] Gender Identity Not on file Sexual Orientation Not on file Last Filed Vital Signs Vital Sign Reading Time Taken Comments Blood Pressure 135/87 05/28/2023 11:41 AM [employer] Pulse 83 05/28/2023 11:41 AM [employer] Temperature 36.6 C (97.9 F) 05/28/2023 11:41 AM [employer] Respiratory Rate 20 05/28/2023 11:41 AM [employer] Oxygen Saturation 96% 05/28/2023 11:41 AM [employer] Inhaled Oxygen Concentration - - Weight 130.4 kg (287 lb 8 oz) 05/28/2023 11:41 A M [employer] Height 172.7 cm (5' 8 ) 05/28/2023 11:41 AM [employer] Body Mass Index 43.71 05/28/2023 11:41 AM [employer] Plan of Treatment Not on file Insurance [facility] MEDICARE Care Teams Cylinder Worker Relationship Specialty Start Date End Date Unknown, Notinfile PCP - General 05/28/23
--- OUTSIDE RECORDS SUMMARY | 2024-05-18 16:32 | XMS_ITS | Encounter Summary ---
Author Organization [facility] Address [address] [place] [address] Care Team Providers Care Park Aide Name Role Phone De George MD Unavailable [phone] Simon Madrigal MD Primary Care Provider [phone]- [phone] Amanda Marquez MD Unavailable Raymundo Lewis DO Primary Care Provider [phone] Chelly Aleman Primary Care Provider [phone] Encounter Details Date Type Department Care Team (Late st Contact Info) Description 09/17/2019 Hospital Follow-up Call [facility] [place] [address] Myla Sullivan, RN Social History Tobacco Use Types Packs/Day Years Used Date Smoking Tobacco: Former Cigars Smokeless Tobacco: Never Alcohol Use Standard Drinks/Week Comments Yes 0 (1 standard drink = 0.6 oz pur e alcohol) occ Sex and Gender Information Value Date Recorded Sex Assigned at Not on file Legal Sex Male 9:59 PM CDT Gender Identity Not on file Sexual Orientation Not on file Occupation Industry Job Start Date Job End Date Not on file Not on file Not on file Not on file COVID-19 Exposure Response Date Recorded In the last month, have you been in contact with someone who was confirmed or suspected to have Coronavirus / COVID-19? Unable to assess 09/19/2019 9:48 AM CDT documented as of this encounter Functional Status * RETIRED Are you deaf or do you have serious difficulty hearing Answer Date of Assessment Author Status No 09/12/2019 5:05 PM CDT Activ e * RETIRED Are you blind or do you have serious difficulty seeing, even when wearing glasses? Answer Date of Assessment Author Status No 09/12/2019 5:05 PM CDT Activ e * Do you have serious difficulty walking or climbing stairs? Answer Date of Assessment Author Status No 09/12/2019 5:05 PM CDT Saloni Balderas RN Active * Do you have difficulty dressing or bathing? Answer Date of Assessment Author Status No 09/12/2019 5:05 PM CDT Saloni Balderas RN Active * Because of a physical, mental, or emotional condition, do you have difficulty doing errands alone such as visiting a doctor's office or shopping? Answer Date of Assessment Author Status No 09/12/2019 5:05 PM CDT Saloni Balderas RN Active documented as of this encounter Mental Status * Because of a physical, mental, or emotional condition, do you have serious difficulty concentrating, remembering, or making decisions? Answer Entry Date Author Status No 09/12/2019 5:05 PM CDT Saloni Balderas RN Active documented in this encounter Plan of Treatment Upcoming Encounters Date Type Department Care Team (Late st Contact Info) Description 07/04/2024 10:00 AM CDT Appointment [facility] [address] [place] [address] Hue Wiggins FNP [address] [place] [address] [address] [place] [address] 07/16/2024 1:00 PM CDT Office Visit [facility] [address] [place] [phone] De George MD [facility]. [facility] [address] [place] [address] 08/13/2024 9:20 AM CDT Allied Health/Nurse Visit [facility], [address] [place] [address] De George MD Three [facility]. [address] [place] [address] 11/05/2024 1:40 PM CDT Office Visit [facility] [address] [phone] Titus Olmstead DO [facility] [address] [place] [address] 02/25/2025 10:30 AM STRUCTURAL STEEL FITTER Office Visit [facility] THREE [facility], [address] [place] [address] Kimberly Yee PA-C Three [facility] [address] [place] [address] documented as of this encounter Visit Diagnoses Not on filedocumented in this encounter Care Teams Park Aide Relationship Specialty Start Date End Date Simon Madrigal MD [address] [place] [phone] PCP - General INTERNAL MEDICINE 09/03/15 01/01/22 Raymundo Lewis DO [address] [place] [address] [address] [place] [address] PCP - General FAMILY PRACTICE 01/02/22 04/04/24 Chelly Aleman FNP [address] [place] [address] [address] [place] [address] PCP - General Nurse Practitioner Family 04/05/24 De [facility] [address] [place] [address] [employer] CARDIOVASCULAR DISEASE 09/03/15 Amanda Marquez MD [facility] [address] [place] [address] [employer] CLINICAL CARDIAC ELECTROPHYSIOLOGY 11/02/16 documented as of this encounter
--- OUTSIDE RECORDS SUMMARY | 2024-05-18 16:32 | XMS_ITS | Encounter Summary ---
Author Organization [facility] Address [address] [place] [address] Care Team Providers Care Claims Adjustor Name Role Phone De George MD Unavailable [phone] Simon Madrigal MD Primary Care Provider + [phone] Amanda Marquez MD Unavailable Raymundo Lewis DO Primary Care Provider [phone] Chelly Aleman Primary Care Provider [phone] Encounter Details Date Type Department Care Team (Late st Contact Info) Description 07/24/2018 Hospital Orders Only [facility] [place] [address] Amanda Marquez MD Three [facility]. [facility] [address] [place] [address] Social History Tobacco Use Types Packs/Day Years [...] file Not on file Not on file documented as of this encounter Plan of Treatment Upcoming Encounters Date Type Department Care Team (Late st Contact Info) Description 07/04/2024 10:00 AM CDT Appointment [facility] [address] [place], [place] [phone] Hue Wiggins FNP 3 [facility] [address] [place] [address] 07/16/2024 1:00 PM CDT Office Visit [facility] [address] [place] [phone] De George MD Three [facility]. [address] [place], [place] [address] 08/13/2024 9:20 AM CDT Allied Health/Nurse Visit [facility][Note 2][place] THREE [facility], [facility] [address] [place] [address] De George MD Three [facility]. [facility] [address] [place], [place] [address] 11/05/2024 1:40 PM CDT Office Visit [facility] [address] [place] [address] Titus Olmstead DO [address] [facility] [address] [place] [address] 02/25/2025 10:30 AM STAVE INSPECTOR Office Visit [facility] [place][Note 2][place] THREE [facility], [facility] [address] [place], [place] [address] Kimberly Yee PA-C Three [facility] [address] [place], [place] [address] documented as of this encounter Visit Diagnoses Not on filedocumented in this encounter Additional Health Concerns Infection Onset Date Last Indicated Resolved Time COVID-19 Rule Out 09/14/2019 09/14/2019 09/15/2019 11:53 AM CDT documented as of this encounter Care Teams Claims Adjustor Relationship Specialty Start Date End Date Simon Madrigal MD [address] [place] [address] PCP - General INTERNAL MEDICINE 09/03/15 01/01/22 Raymundo Lewis DO [address] [place] [address] [address] [place] [address] PCP - General FAMILY PRACTICE 01/02/22 04/04/24 Chelly Aleman FNP [address] [place] [address] [address] [place], [place] [phone] PCP - General Nurse Practitioner Family 04/05/24 De George MD [address] [place], [place] [address] [employer] CARDIOVASCULAR DISEASE 09/03/15 Amanda Marquez MD [address] [place], [place] [address] [employer] CLINICAL CARDIAC ELECTROPHYSIOLOGY 11/02/16 documented as of this encounter
--- OUTSIDE RECORDS SUMMARY | 2024-05-18 16:32 | XMS_ITS | Clinical Summary ---
Author Organization [facility] Address [address] [place] [address] Care Team Providers Care Director Of Regional Sales Name Role Phone De George MD Unavailable [phone] Amanda Marquez MD Unavailable Chelly Aleman HEEL DIPPER Primary Care Provider + [phone] Allergies Active Allergy Reactions Criticality Noted Date Comments Yaritza Varghese 01/15/2016 Medications omeprazole 40 MG capsule Take 1 tablet by mouth daily. 013 Active Ascorbic Acid (VITAMIN C) 500 MG Cap Take 1 tablet by mouth daily. 013 Active Cholecalciferol (VITAMIN D-3 OR) Take 2,000 Units by mouth daily. 015 Active magnesium oxide 250 MG tablet Take 1 tablet (250 mg total) by mouth daily. Active loratadine 10 MG tablet Take 1 tablet (10 mg total) by mouth daily. Active Multiple Vitamins-Minera ls (PRESERVISION AREDS 2 OR) Take 1 tablet by mouth 2 (two) times a day. Active albuterol sulfate HFA 108 (90 Base) MCG/ACT inhalerIndicati ons:Mild intermittent asthma without complication (HHS/HCC) Inhale 2 puffs into the lungs every 6 (six) hours as needed for Wheezing. 6.7 g 3 022 Active Nebulizers (INNOSPIRE ELEGANCE NEBULIZER) Misc see administration instructions. Active albuterol (PROVENTIL) (2.5 MG/3ML) 0.083% nebulizer solution Take 3 mLs (2.5 mg total) by nebulization every 6 (six) hours as needed for Wheezing. Active nitroglycerin (NITROSTAT) 0.[address] 1 tablet (0.4 mg total) under the tongue every 5 (five) minutes as needed for Chest Pain. Maximum of 3 doses. If taking 3rd dose, call 911 25 tablet 1 023 Active TRELEGY ELLIPTA 100-62.5-25 MCG/ACT AEROSOL POWDER, BREATH ACTIVATED Using as needed 023 Active apixaban (ELIQUIS) 5 MG tablet Take 1 tablet (5 mg total) by mouth 2 (two) times daily. 180 tablet 4 024 Active losartan-hydroC HLOROthiazide (HYZAAR) 100-12.5 MG tablet Take 1 tablet by mouth daily. 90 tablet 3 024 Active atorvastatin (LIPITOR) 10 MG tablet take one tablet by mouth at bedtime 90 tablet 024 Active metoprolol tartrate (LOPRESSOR) 25 MG tablet TAKE ONE TABLET BY MOUTH TWICE A DAY 180 tablet 025 Active metoprolol tartrate (LOPRESSOR) 25 MG tablet take one tablet by mouth twice a day 180 tablet 024 2024 Discontinued Active Problems Problem Noted Date Diagnosed Date Pacemaker 09/17/2019 Overview (05/27/2021): STJ Quadra Allure CRTP implanted 09/17/2019, along with a CS lead for NICM/CHB, Atrial and RV leads are chronic from 08/14/2004. Atrial fibrillation with RVR ([facility]) 0 09/12/2019 Non-rheumatic mitral regurgitation 05/25/2018 Morbid obesity ([facility]) 12/09/2016 Atrial fibrillation ([facility]) 12/07/2016 JORDON on CPAP 12/07/2016 SSS (sick sinus syndrome) ([facility]) Hypertension, essential Dyslipidemia CHB (complete heart block) ([facility]) Bradycardia Resolved Problems Problem Noted Date Diagnosed Date Resolved Date Asthma (HHS/HCC) 01/26/2017 08/06/2021 Encounters Date Type Department Care Team Description 05/08/2024 Scan HEALTH INFO SRVCS Scanned, [facility] 04/30/2024 7:25 AM TRUCK SALES REPRESENTATIVE Allied Health/Nurse Visit [facility] [address] [address] De George MD Remote Device Check 04/06/2024 Telephone [facility] [id number] [place] [address] Titus Olmstead DO Appointment Request 04/05/2024 10:00 AM TRUCK SALES REPRESENTATIVE - 04/05/2024 11:59 PM TRUCK SALES REPRESENTATIVE Hospital Encounter [facility] [id number] [place] [address] Hue Wiggins, MORRIS Discharge Disposition: Home or Self Care (Routine Discharge) 04/05/2024 Telephone [facility] [address] [address] Hue Wiggins FNP Results 04/05/2024 Travel 03/26/2024 Telephone [facility] [address] [address] Shannan Knapp, RN Schedule Procedure (LISBETH lovell/[place] ) 02/20/2024 10:15 AM TRUCK SALES REPRESENTATIVE Office Visit [facility] [address] [address] Amanda Marquez MD Sick Sinus Syndrome ([facility] ) 02/20/2024 Travel from Last 3 Months Immunizations Name Administration Dates Next Due Influenza Adult (Generic) 02/09/2018,12/23/2016, 01/06/2015 Pneumococcal (Pneumovax 23) 08/09/2012 Pneumococcal (Prevnar 13) 10/17/2014 Shingrix 11/15/2017 Tdap (Generic) 10/17/2014 Family History Medical History Relation Comments Family history is negative for premature coronar y artery disease. Other None Neg Hx Relation Status Comments Other Social History Tobacco Use Types Packs/Day Years Used Date Smoking Tobacco: Former Cigars Smokeless Tobacco: Never Tobacco Cessation:Counseling Given: Yes Alcohol Use Standard Drinks/Week Comments Yes 0 (1 standard drink = 0.6 oz pur e alcohol) occ PHQ-2 Answer Date Recorded PHQ-2 Score - If the patient scores above 3, please move on to questions 3-9 0 06/06/2020 Sex and Gender Information Value Date Recorded Sex Assigned at Not on file Legal Sex Male 9:59 PM CDT Gender Identity Not on file Sexual Orientation Not on file Occupation Industry Job Start Date Job End Date Not on file Not on file Not on file Not on file Last Filed Vital Signs Vital Sign Reading Time Taken Comments Blood Pressure 112/70 02/20/2024 10:21 AM TRUCK SALES REPRESENTATIVE Pulse 78 02/20/2024 10:21 AM TRUCK SALES REPRESENTATIVE Temperature 36.6 C (97.9 F) 09/26/2023 11:25 AM CDT Respiratory Rate 18 09/26/2023 11:25 AM CDT Oxygen Saturation 98% 02/20/2024 10:21 AM TRUCK SALES REPRESENTATIVE Inhaled Oxygen Concentration - - Weight 130.6 kg (288 lb) 02/20/2024 10:21 AM TRUCK SALES REPRESENTATIVE Height 172.7 cm (5' 8 ) 02/20/2024 10:21 AM TRUCK SALES REPRESENTATIVE Body Mass Index 43.79 02/20/2024 10:21 AM TRUCK SALES REPRESENTATIVE Plan of Treatment Upcoming Encounters Date Type Department Care Team (Late st Contact Info) Description 07/04/2024 10:00 AM CDT Appointment [facility] [address] [place] [address] Hue Wiggins FNP 3 [facility] [address] [place] [address] 07/16/2024 1:00 PM CDT [facility] [address] [place] [phone] De George MD [facility] [address] [place] [address] 08/13/2024 9:20 AM CDT Allied Health/Nurse Visit [facility] [address] [place] [address] De George MD [facility] [address] [place] [address] 11/05/2024 1:40 PM CDT Office Visit [facility] [address] [address] Titus Olmstead DO 3 [facility] [address] [place] [address] 02/25/2025 10:30 AM TRUCK SALES REPRESENTATIVE Office Visit [facility] [address] [place] [address] Kimberly Yee PA-C [facility] [address] [place] [address] Health Maintenance Due Date Last Done Comments Annual Medicare Wellness Visit 2007 RSV Immunization or 60+ Years (1 - 1-dose 75+ series) 2017 Zoster Vaccines (2 of 2) 01/10/2018 11/15/2017 COVID-19 Vaccine (2023-2 5 season) 2023 Influenza Adult (#1) 2024 02/09/2018, 12/23/2016, 01/06/2015 PHQ-2 (Physician [place]) 04/04/2024 DTaP, Tdap and Td Vaccines ( 2 - Td or Tdap) 10/17/2024 10/17/2014 Pneumococcal Vaccine: 65+ Years Completed 10/17/2014, 08/09/2012 Meningococcal B Vaccine Aged Out No l onger eligible based on patient's age to complete this topic Meningococcal Vaccine Aged Out No rickey andre eligible based on patient's age to complete this topic RSV Immunizations Under 20 Months Aged Out No longer eligible b ased on patient's age to complete this topic Medical Devices Implanted Type Area Network Engineer Device Identifier Shelf Expiration Date Model / Serial / Lot Atrial Lead- 5 Implanted: by Arpan Pollard MD (Quantity not on file) Lead Implant [facility] [facility] [employer] [id number] / [id number] / Rv Lead- 5 Implanted: by Arpan Pollard MD (Quantity not on file) Lead Implant [facility] [facility] [employer] [id number] / [id number] / Lv Lead Implanted:Qty : 1 on 09/17/2019 by Amanda Marquez MD Lead Implant [employer] CARDIAC RHYTHM AND HEART FAILURE - DIV M 06/05/2021 [id number] / [id number] / [facility] Pacemaker-08/05 Implanted:07/2011 by Arpan Pollard MD (Quantity not on file) Explanted: by Amanda Marquez MD (Quantity not on file) Pacemaker [facility] [employer] [id number] / [id number] / Sj Pacemaker-/2 08/2018 Implanted: by Amanda Marquez MD (Quantity not on file) Explanted:Qty : 1 on 09/17/2019 by Amanda Marquez MD Pacemaker [facility] [facility] [employer] [id number] / [id number] / Sja Pacemaker 09/17/19 Implanted:Qty : 1 on 09/17/2019 by Amadna Marquez MD Pacemaker [facility] [facility] [facility] 09/01/2020 [id number] / [id number] / Procedures Procedure Name Priority Date/Time Associated Diagnosis Comments TSH W/REFLEX Routine 04/05/2024 10:16 AM TRUCK SALES REPRESENTATIVE Chronic atrial fibrillation (CMS/HCC HHS/HCC) LIPID PANEL Routine 04/05/2024 10:16 AM TRUCK SALES REPRESENTATIVE Mixed hyperlipidemia CBC, AUTO, NO DIFF Routine 04/05/2024 10 :16 AM TRUCK SALES REPRESENTATIVE Chronic atrial fibrillation (CMS/HCC HHS/HCC) COMPREHENSIVE METABOLIC PANEL Routine 04/05/2024 10:16 AM TRUCK SALES REPRESENTATIVE Chronic atrial fibrillation (CMS/HCC HHS/HCC) from Last 3 Months Results * TSH W/REFLEX (04/05/2024 10:16 AM TRUCK SALES REPRESENTATIVE) TSH 1.150 0.358 - 3.74 uIU/ML 04/05/2024 11:18 AM TRUCK SALES REPRESENTATIVE [facility] Comment: HIGH DOSES OF BIOTIN MAY INTERFERE WITH THIS TEST RESULT. CORRELATION TO CLINICAL HISTORY AND PRESENTATION RECOMMENDED. FREE T4 NOT INDICATED 04/05/2024 10:1 6 AM TRUCK SALES REPRESENTATIVE Hue Wiggins [facility] Final Result [facility] [address] [place] [address], * (ABNORMAL) COMPREHENSIVE METABOLIC PANEL (04/05/2024 10:16 AM [facility]) Pathologist [facility] GLUCOSE 96 70 - 99 MG/DL 04/05/2024 11:18 AM [facility] BUN 13 7 - 18 MG/DL 04/05/2024 11:18 AM [facility] CREATININE S/P/B 0.99 0.7 - 1.3 MG/DL 04/05/2024 11:18 AM [facility] SODIUM S/P/B 144 136 - 145 MMOL/L 04/05/2024 11:18 AM [facility] POTASSIUM S/P/B 3.7 3.5 - 5.1 MMOL/L 04/05/2024 11:18 AM [facility] CHLORIDE S/P/B 105 100 - 108 MMOL/L 04/05/2024 11:18 AM [facility] CO2 33.6(H) 21 - 32 MMOL/L 04/05/2024 11:18 AM [facility] CALCIUM S/P/B 9.3 8.5 - 10.1 MG/DL 04/05/2024 11:18 AM [facility] BILIRUBIN TOTAL S/P/B 0.9 0.2 - 1.2 MG/DL 04/05/2024 11:18 AM [facility] TOTAL PROTEIN S/P/B 7.1 6.4 - 8.2 G/DL 04/05/2024 11:18 AM [facility] ALBUMIN S/P/B 3.7 3.4 - 5.0 G/DL 04/05/2024 11:18 AM [facility] AST 17 15 - 37 U/L 04/05/2024 11:18 AM [facility] ALT 33 16 - 60 U/L 04/05/2024 11:18 AM [facility] ALKALINE PHOSPHATASE S/P/B 92 50 - 136 U/L 04/05/2024 11:18 AM [facility] ANION GAP 5.4 5 - 15 MMOL/L 04/05/2024 11:18 AM [facility] BUN CREATININE RATIO 13.1 6 - 26 04/05/2024 11:18 AM [facility] A/G RATIO 1.1 1.0 - 2.0 RATIO 04/05/2024 11:18 AM [facility] GFR ESTIMATE 76(L) >90 ML/MIN/1.7 3 M2 04/05/2024 11:18 AM [facility] Comment: NOTE: eGFR is not calculated for patients <18 years of age. This is an estimated GFR calculation using the new CKD EPI creatinine equation without race and so does not require a correction factor for race. This estimated GFR should not be used for calculating drug doses. 04/05/2024 10:1 6 AM TRUCK SALES REPRESENTATIVE Hue Wiggins [facility] Final Result [facility] [address] [place] [address], * LIPID PANEL (04/05/2024 10:16 AM TRUCK SALES REPRESENTATIVE) CHOLESTEROL 145 <200.0 MG/DL 04/05/2024 11:18 AM [facility] TRIGLYCERIDES 103 <150 MG/DL 04/05/2024 11:18 AM [facility] HDL 49 >40.0 MG/DL 04/05/2024 11:18 AM [facility] LDL (CALCULATED) 75 <100 MG/DL 04/05/19 11:18 AM [facility] NON HDL CHOLESTEROL 96 <130 MG/DL 04/05 11:18 AM [facility] CHOL/HDL RATIO 3.0 0.0 - 4.5 04/05/2024 11:18 AM [facility] VLDL CALCULATION 21 5 - 55 MG/DL 04/05/2024 11:18 AM [facility] LIPID INTERPRETATION 04/05/2024 11:18 AM [facility] Comment: [facility] REPORT RECOMMENDATIONS: ADULT CHILD LOW RISK: CHOLESTEROL <200 <170 TRIGLYCERIDE <150 --- HDL >=60 --- LDL <100 <110 BORDERLINE: CHOLESTEROL 200-239 170-199 TRIGLYCERIDE 150-199 --- HDL 40-59 --- LDL 100-159 110-129 HIGH RISK: CHOLESTEROL >=240 >=200 TRIGLYCERIDE >=200 --- HDL <40 --- LDL >=160 >=130 04/05/2024 10:1 6 AM TRUCK SALES REPRESENTATIVE Hue Wiggins [facility] Final Result [facility] [address] [place] [address], [place] [phone] * (ABNORMAL) CBC, AUTO, NO DIFF (04/05/2024 10:16 AM TRUCK SALES REPRESENTATIVE) [facility] Signature WBC 5.41 4.4 - 11.0 x10'3/uL 04/05/2024 10:36 AM [facility] RBC 4.76 4.50 - 5.90 x10'6/uL 04/05/2024 10:36 AM [facility] HGB 14.7 14.0 - 17.5 G/DL 04/05/2024 10:36 AM [facility] HCT 44.5 41.5 - 50.4 % 04/05/2024 10:36 AM [facility] MCV 93.5 80.0 - 96.0 FL 04/05/2024 10:36 AM [facility] MCH 30.9 26.5 - 31.4 PG 04/05/2024 10:36 AM [facility] MCHC 33.0 31.9 - 34.8 G/DL 04/05/2024 10:36 AM [facility] RDW 12.9 12.3 - 14.3 % 04/05/2024 10:36 AM [facility] PLT 135(L) 151 - 353 x10'3/uL 04/05/2024 10:36 AM [facility] MPV 11.6 9.7 - 11.9 FL 04/05/2024 10:36 AM [facility] 04/05/2024 10:1 6 AM TRUCK SALES REPRESENTATIVE [facility] Final Result [facility] [address] [place] [address], [place] [phone] from Last 3 Months Insurance MEDICARE Advance Directives * Full Code (Latest Code Status on File) Date Activated Date Inactivated Comments 09/17/2019 4:39 PM 09/17/2019 9:37 PM Care Teams Director Of Regional Sales Relationship Specialty Start Date End Date Chelly Aleman FNP [address] [place] [address] [address] [place], [place] [phone] PCP - General Nurse Practitioner Family 04/05/24 De George MD [facility] [address] [place], [place] [id number] [place] Train Control Electronic Technician CARDIOVASCULAR DISEASE 09/03/15 Amanda Marquez MD [facility] [address] [place], [place] [address] EP Train Control Electronic Technician CLINICAL CARDIAC ELECTROPHYSIOLOGY 11/02/16
--- OUTSIDE RECORDS SUMMARY | 2024-05-18 16:32 | XMS_ITS | Clinical Summary ---
Author Organization [facility] [address] Address [address] [place] [phone] Care Team Providers Care Hydraulic Rock Drill Operator Name Role Phone Unknown, Notinfile Primary Care [...] on file Legal Sex Male 3:02 AM MEDIA RELATIONS SPECIALIST Gender Identity Not on file Sexual Orientation Not on file Obstetrics History Last Filed Vital Signs Vital Sign Reading Time Taken Comments Blood Pressure 135/87 05/28/2023 11:41 AM MEDIA RELATIONS SPECIALIST Pulse 83 05/28/2023 11:41 AM MEDIA RELATIONS SPECIALIST Temperature 36.6 C (97.9 F) 05/28/2023 11:41 AM MEDIA RELATIONS SPECIALIST Respiratory Rate 20 05/28/2023 11:41 AM MEDIA RELATIONS SPECIALIST Oxygen Saturation 96% 05/28/2023 11:41 AM MEDIA RELATIONS SPECIALIST Inhaled Oxygen Concentration - - Weight 130.4 kg (287 lb 8 oz) 05/28/2023 11:41 A M MEDIA RELATIONS SPECIALIST Height 172.7 cm (5' 8 ) 05/28/2023 11:41 AM MEDIA RELATIONS SPECIALIST Body Mass Index 43.71 05/28/2023 11:41 AM MEDIA RELATIONS SPECIALIST Plan of Treatment Health Maintenance Due Date [...] Pneumococcal vaccine 65+ Completed 10/17/2014, 11/2012 Insurance [employer] Care Teams Hydraulic Rock Drill Operator Relationship Specialty Start Date End Date Unknown, Notinfile PCP - General 05/28/23
--- OUTSIDE RECORDS SUMMARY | 2024-05-18 16:32 | XMS_ITS | Encounter Summary ---
Author Organization [facility] Address [address] [place] [address] Care Team Providers Care Claims Adjuster Name Role Phone De George MD Unavailable [phone] Simon Madrigal MD Primary Care Provider + [phone] Amanda Marquez MD Unavailable Raymundo Lewis DO Primary Care Provider [phone] Chelly Aleman Primary Care Provider + [phone] Encounter Details Date Type Department Care Team (Late st Contact Info) Description 10/21/2020 Abstract [facility] [address] Dahiana Tejada MA Social History Tobacco Use Types Packs/Day Years [...] or suspected to have Coronavirus / COVID-19? No / Unsure 10/13/2020 11:14 AM CDT documented as of this encounter [...] Info) Description 07/04/2024 10:00 AM CDT Appointment [facility] [address] [place] [address] Hue Wiggins FNP 3 [facility] [address] [place] [address] 07/16/2024 1:00 PM CDT [facility] [address] [place] [phone] De George MD [facility] [address] [place] [address] 08/13/2024 9:20 AM CDT Allied Health/Nurse [facility] [address] [place] [address] De George MD Three [facility]. [address] [place] [address] 11/05/2024 1:40 PM CDT Office Visit [facility] Specialty [facility] [address] [place] [address] Titus Olmstead DO 3 [facility] [address] [place] [address] 02/25/2025 10:30 AM WAFER SLICER Office Visit [facility] [place] [address] [place] [address] Kimberly Yee PA-C [facility] [address] [place], [place] [address] documented as of this encounter Procedures Procedure Name Priority Date/Time Associated Diagnosis Comments COMPREHENSIVE METABOLIC PANEL Routine 10/30/2021 LIPID PANEL Routine 10/30/2021 HEMOGLOBIN, GLYCOSYLATED Routine 10/30/2021 COMPREHENSIVE METABOLIC PANEL Routine 10/20/2020 LIPID PANEL Routine 10/20/2020 documented in this encounter Results * HEMOGLOBIN, GLYCOSYLATED (10/30/2021) HGB A1C 5.3 % 10/30/2021 us Doc [facility] Edited Resul t - Final * LIPID PANEL (10/30/2021) CHOLESTEROL 155 HDL 38 TRIGLYCERIDES 139 DIRECT LDL 81 10/30/2021 Doc [facility] Edited [facility] t - Final * COMPREHENSIVE METABOLIC PANEL (10/30/2021) SODIUM S/P/B 142 POTASSIUM S/P/B 4.2 CO2 30 CHLORIDE S/P/B 103 GLUCOSE 96 mg/dL CALCIUM S/P/B 8.9 BUN 20 CREATININE S/P/B 0.80 0.7 - 1.3 EGFR NON-AFR. AMER. >60 <=90 ALKALINE PHOSPHATASE S/P/B 82 ALT 32 AST 37 BILIRUBIN TOTAL S/P/B 0.7 ALBUMIN S/P/B 4.4 3.5 - 5.0 TOTAL PROTEIN S/P/B 7.0 10/30/2021 Doc [facility] Edited [facility] t - Final * LIPID PANEL (10/20/2020) CHOLESTEROL 149 HDL 43 TRIGLYCERIDES 116 LDL (CALCULATED) 85 10/20/2020 Doc [facility] Final Result * (ABNORMAL) COMPREHENSIVE METABOLIC PANEL (10/20/2020) SODIUM S/P/B 146 POTASSIUM S/P/B 4.3 CO2 27 CHLORIDE S/P/B 106 GLUCOSE 99 mg/dL CALCIUM S/P/B 8.7 BUN 12 CREATININE S/P/B 0.88 0.7 - 1.3 EGFR AFR. AMER. 95(A) <=90 EGFR NON-AFR. AMER. 82 <=90 ALKALINE PHOSPHATASE S/P/B 100 ALT 23 AST 18 BILIRUBIN TOTAL S/P/B 0.7 ALBUMIN S/P/B 4.3 3.5 - 5.0 TOTAL PROTEIN S/P/B 6.7 10/20/2020 us Doc [facility] Final Result documented in this encounter Visit Diagnoses Not on filedocumented in this encounter Care Teams Claims Adjuster Relationship Specialty Start Date End Date Simon Madrigal MD [address] [place] [address] PCP - General INTERNAL MEDICINE 09/03/15 01/01/22 Raymundo Lewis DO [address] [place] [address] [address] [place] [address] PCP - General FAMILY PRACTICE 01/02/22 04/04/24 Chelly Aleman FNP [address] [place] [address] [address] [place], [place] [phone] PCP - General Nurse Practitioner Family 04/05/24 [facility] [address] [place] [address] [facility] Cat Hooker CARDIOVASCULAR DISEASE 09/03/15 Amanda [facility] [address] [place] [address] EP Cat Hooker CLINICAL CARDIAC ELECTROPHYSIOLOGY 11/02/16 documented as of this encounter
--- OUTSIDE RECORDS SUMMARY | 2024-05-18 16:32 | XMS_ITS | Encounter Summary ---
Author Organization [facility] Address [address] [place] [address] Care Team Providers Care Sneller Hand Name Role Phone De George MD Unavailable [phone] Amanda Marquez MD Unavailable Raymundo Lewis DO Primary Care Provider [phone] Chelly Aleman Primary Care Provider + [phone] Encounter Details Date Type Department Care Team (Late st Contact Info) Description 09/29/2022 MyChart Message Enc [facility] - [facility] [address] [place] [address] Farrah, [facility] Provider Air Quality Message Social History Tobacco Use Types Packs/Day Years [...] on file documented as of this encounter Functional Status * RETIRED Are you deaf or do you have serious difficulty hearing Answer Date of Assessment Author Status No 09/12/2019 5:05 PM CDT Activ e * RETIRED Are you blind or do you have serious difficulty seeing, even when wearing glasses? Answer Date of Assessment Author Status No 09/12/2019 5:05 PM CDT Acti ve * Do you have serious difficulty walking or climbing stairs? Answer Date of Assessment Author Status No 09/12/2019 5:05 PM CDT Saloni Balderas RN Active * Do you have difficulty dressing or bathing? Answer Date of Assessment Author Status No 09/12/2019 5:05 PM JOSUÉT Saloni Balderas RN Active * Because of [...] Info) Description 07/04/2024 10:00 AM CDT Appointment [facility] [address] [place] [address] Hue Wiggins FNP 3 [facility] [address] [place] [address] 07/16/2024 1:00 PM CDT Office Visit [place] [facility] [address] [place] [address] De George MD [facility]. [address] [place] [address] 08/13/2024 9:20 AM CDT Allied Health/Nurse Visit [facility], [address] [place] [address] De George MD [facility]. [facility] [address] [place] [address] 11/05/2024 1:40 PM CDT Office Visit [facility]ty Clinic - [address] [phone] Titus Olmstead DO 3 [facility] [address] [place] [address] 02/25/2025 10:30 AM UNDERCAR SPECIALIST Office Visit [place] [facility] [facility], [address] [place], [place] [address] Kimberly Yee PA-C [facility] [address] [place], [place] [address] documented as of this encounter Visit Diagnoses Not on filedocumented in this encounter Care Teams Sneller Hand Relationship Specialty Start Date End Date Raymundo Lewis DO [address] [place] [address] [address] [place] [address] PCP - General FAMILY PRACTICE 01/02/22 04/04/24 Chelly Aleman FNP [address] [place] [address] [address] [place] [address] PCP - General Nurse Practitioner Family 04/05/24 De George MD [facility]. [address] [place] [address] [place] Quill Machine Operator CARDIOVASCULAR DISEASE 09/03/15 Amanda Marquez MD [facility]. [address] [place], [place] [address] EP Quill Machine Operator CLINICAL CARDIAC ELECTROPHYSIOLOGY 11/02/16 documented as of this encounter
== END 2024-05-18 16:29 | disposition home or self-care (01) ==
PROVIDERS: PCP Nurse Practitioner Family; Visit Provider Nurse Practitioner Family
DX: R10.9 Unspecified abdominal pain (principal); N20.0 Calculus of kidney; K57.90 Diverticulosis of intestine, part unspecified, without perforation or abscess without bleeding; K40.20 Bilateral inguinal hernia, without obstruction or gangrene, not specified as recurrent
CPT/HCPCS: 74176

== ENCOUNTER 2024-06-29 12:13 | Emergency (ER) | payer MEDICARE, SELFPAY ==
[2024-06-29 12:21] VITALS: BP 130/84; PULSE 80; RESP 18; TEMP 36.6; O2SAT 99
--- OUTSIDE RECORDS SUMMARY | 2024-06-29 12:45 | XMS_ITS | Clinical Summary ---
Author Organization [facility] Address [address] [place] [address] Care Team Providers Care Apprentice Architect Name Role Phone De George MD Unavailable [phone] Amanda Marquez MD Unavailable Chelly Aleman RODENT EXTERMINATOR Primary Care Provider + [phone] Allergies Active Allergy Reactions Criticality Noted Date [...] mouth daily. 90 tablet 3 024 Active metoprolol tartrate (LOPRESSOR) 25 MG tablet TAKE ONE TABLET BY MOUTH TWICE A DAY 180 tablet 025 Active atorvastatin (LIPITOR) 10 MG tablet TAKE ONE TABLET BY MOUTH BEDTIME 90 tablet 025 Active atorvastatin (LIPITOR) 10 MG tablet take one tablet by mouth at bedtime 90 tablet 024 2024 Discontinued Active Problems Problem Noted Date Diagnosed Date Pacemaker 09/17/2019 Overview (05/27/2021): STJ Quadra Allure CRTP implanted 09/17/2019, along with a CS lead for NICM/CHB, Atrial and RV leads are chronic from 08/14/2004. Atrial fibrillation with RVR ([facility]) 0 09/12/2019 Non-rheumatic mitral regurgitation 05/25/2018 Morbid obesity 12/09/2016 Atrial fibrillation ([facility] HHS/[facility]) 12/07/2016 JORDON on CPAP 12/07/2016 SSS (sick sinus syndrome) ([facility]) Hypertension, essential Dyslipidemia CHB (complete heart block) ([facility]) Bradycardia Resolved Problems Problem Noted Date Diagnosed Date Resolved Date Asthma (HHS/HCC) 01/26/2017 08/06/2021 Encounters Date Type Department Care Team Description 05/08/2024 Scan [facility] Scanned, [facility] 04/30/2024 7:25 AM EDUCATION TECHNICIAN Allied Health/Nurse Visit [facility], [facility] [address] [place] [address] De George MD Remote Device Check 04/06/2024 Telephone [facility] Pul[facility]ology Specialty Clinic [facility] [address] [place] [address] Titus Olmstead DO Appointment Request 04/05/2024 10:00 AM EDUCATION TECHNICIAN - 04/05/2024 11:59 PM EDUCATION TECHNICIAN Hospital Encounter [facility] [address] [place], [place] [phone] Hue Wiggins FNP Discharge Disposition: Home or Self Care (Routine Discharge) 04/05/2024 Telephone [facility], [address] [address] Hue Wiggins FNP Results 04/05/2024 Travel from Last 3 Months Immunizations Name [...] Comments Blood Pressure 112/70 02/20/2024 10:21 AM EDUCATION TECHNICIAN Pulse 78 02/20/2024 10:21 AM EDUCATION TECHNICIAN Temperature 36.6 C (97.9 F) 09/26/2023 11:25 AM CDT Respiratory Rate 18 09/26/2023 11:25 AM CDT Oxygen Saturation 98% 02/20/2024 10:21 AM EDUCATION TECHNICIAN Inhaled Oxygen Concentration - - Weight 130.6 kg (288 lb) 02/20/2024 10:21 AM EDUCATION TECHNICIAN Height 172.7 cm (5' 8 ) 02/20/2024 10:21 AM EDUCATION TECHNICIAN Body Mass Index 43.79 02/20/2024 10:21 AM EDUCATION TECHNICIAN Plan of Treatment Upcoming Encounters Date Type Department Care Team (Late st Contact Info) Description 07/04/2024 10:00 AM CDT Appointment [facility] [address] [place] [address] Hue Wiggins FNP 3 [facility] [address] [place] [address] 07/16/2024 1:00 PM CDT Office Visit [facility] [address] [place] [phone] De George MD [facility]. [facility] [address] [place] [address] 08/13/2024 9:20 AM CDT [facility] [address] [place] [address] De George MD [facility]. [facility] [address] [place] [address] 11/26/2024 1:30 PM CDT Office Visit [facility] Medical Group Pulmonology Specialty [facility] [address] [place] [address] Titus Olmstead DO 3 [facility] [address] [place] [address] 02/25/2025 10:30 AM EDUCATION TECHNICIAN Office Visit [facility] [facility] [address], [address] [place] [address] Kimberly Yee PA-C [address] [place] [address] Health Maintenance Due Date Last Done Comments Annual Medicare Wellness Visit 2007 RSV Immunization or 60+ Years (1 - 1-dose 75+ series) 2017 Zoster Vaccines (2 of 2) 01/10/2018 11/15/2017 COVID-19 Vaccine ( - 2023-2 5 season) 2023 Influenza Adult (#1) 2024 02/09/2018, 12/23/2016, 01/06/2015 PHQ-2 (Physician [place]) 04/04/2024 DTaP, Tdap and Td Vaccines ( [...] this topic Medical Devices Implanted Type Area Oil Tester Device Identifier Shelf Expiration Date Model / Serial / Lot Atrial Lead- 5 Implanted: by Arpan Pollard MD (Quantity not on file) Lead Implant [facility] [facility] [employer] [id number] / [id number] / Rv Lead- 5 Implanted: by Arpan Pollard MD (Quantity not on file) Lead Implant [facility] [facility] [employer] [id number] / [id number] / Lv Lead Implanted:Qty : 1 on 09/17/2019 by Amanda Marquez MD Lead Implant [employer] CARDIAC RHYTHM AND HEART FAILURE - DIV M 06/05/2021 [id number] / [id number] / St Bean Pacemaker-08/05 Implanted:07/2011 by Arpan Pollard MD (Quantity not on file) Explanted: by Amanda Marquez MD (Quantity not on file) Pacemaker [facility] [employer] [id number] / [id number] / Sj Pacemaker-07/04 Implanted: by Amanda Marquez MD (Quantity not on file) Explanted:Qty : 1 on 09/17/2019 by Amanda Marquez MD Pacemaker [facility] [employer] [id number] / [id number] / Sja Pacemaker 09/17/19 Implanted:Qty : 1 on 09/17/2019 by Amanda Marquez MD Pacemaker [facility] [facility] [facility] [employer] 09/01/2020 [id number] / [id number] / Procedures Procedure Name Priority Date/Time Associated Diagnosis Comments TSH W/REFLEX Routine 04/05/2024 10:16 AM EDUCATION TECHNICIAN Chronic atrial fibrillation ([facility] HHS/HCC) LIPID PANEL Routine 04/05/2024 10:16 AM EDUCATION TECHNICIAN Mixed hyperlipidemia CBC, AUTO, NO DIFF Routine 04/05/2024 10 :16 AM EDUCATION TECHNICIAN Chronic atrial fibrillation (CMS/HCC HHS/HCC) COMPREHENSIVE METABOLIC PANEL Routine 04/05/2024 10:16 AM EDUCATION TECHNICIAN Chronic atrial fibrillation (CMS/HCC HHS/HCC) from Last 3 Months Results * TSH W/REFLEX (04/05/2024 10:16 AM EDUCATION TECHNICIAN) TSH 1.150 0.358 - 3.74 uIU/ML 04/05/2024 11:18 AM EDUCATION TECHNICIAN [facility] Comment: HIGH DOSES OF BIOTIN MAY INTERFERE WITH THIS TEST RESULT. CORRELATION TO CLINICAL HISTORY AND PRESENTATION RECOMMENDED. FREE T4 NOT INDICATED 04/05/2024 10:1 6 AM EDUCATION TECHNICIAN Hue Crystal Wiggins RODENT EXTERMINATOR LABORATORY Final Result [facility] [address] [place] [address], * (ABNORMAL) COMPREHENSIVE METABOLIC PANEL (04/05/2024 10:16 AM EDUCATION TECHNICIAN) GLUCOSE 96 70 - 99 MG/DL 04/05/2024 11:18 AM [facility] BUN 13 7 - 18 MG/DL 04/05/2024 11:18 AM [facility] CREATININE S/P/B 0.99 0.7 - 1.3 MG/DL 04/05/2024 11:18 AM [facility] SODIUM S/P/B 144 136 - 145 MMOL/L 04/05/2024 11:18 AM [facility] POTASSIUM S/P/B 3.7 3.5 - 5.1 MMOL/L 04/05/2024 11:18 AM [facility] CHLORIDE S/P/B 105 100 - 108 MMOL/L 04/05/2024 11:18 AM [facility] CO2 33.6(H) 21 - 32 MMOL/L 04/05/2024 11:18 AM [facility] CALCIUM S/P/B 9.3 8.5 - 10.1 MG/DL 04/05/2024 11:18 AM [facility] BILIRUBIN TOTAL S/P/B 0.9 0.2 - 1.2 MG/DL 04/05/2024 11:18 AM [facility] TOTAL PROTEIN S/P/B 7.1 6.4 - 8.2 G/DL 04/05/2024 11:18 AM [facility] ALBUMIN S/P/B 3.7 3.4 - 5.0 G/DL 04/05/2024 11:18 AM [facility] AST 17 15 - 37 U/L 04/05/2024 11:18 AM [facility] ALT 33 16 - 60 U/L 04/05/2024 11:18 AM [facility] ALKALINE PHOSPHATASE S/P/B 92 50 - 136 U/L 04/05/2024 11:18 AM [facility] ANION GAP 5.4 5 - 15 MMOL/L 04/05/2024 11:18 AM [facility] BUN CREATININE RATIO 13.1 6 - 26 04/05/2024 11:18 AM [facility] A/G RATIO 1.1 1.0 - 2.0 RATIO 04/05/2024 11:18 AM [facility] GFR ESTIMATE 76(L) >90 ML/MIN/1.7 3 M2 04/05/2024 11:18 AM [facility] Comment: NOTE: eGFR is not calculated for patients <18 years of age. This is an estimated GFR calculation using the new CKD EPI creatinine equation without race and so does not require a correction factor for race. This estimated GFR should not be used for calculating drug doses. 04/05/2024 10:1 6 AM [facility] Hue Wiggins RODENT EXTERMINATOR LABORATORY Final Result [facility] [address] [place] [address], * LIPID PANEL (04/05/2024 10:16 AM [facility]) CHOLESTEROL 145 <200.0 MG/DL 04/05/2024 11:18 AM [facility] TRIGLYCERIDES 103 <150 MG/DL 04/05/2024 11:18 AM [facility] HDL 49 >40.0 MG/DL 04/05/2024 11:18 AM [facility] LDL (CALCULATED) 75 <100 MG/DL 04/05/19 25 11:18 AM [facility] NON HDL CHOLESTEROL 96 <130 MG/DL 04/05 11:18 AM [facility] CHOL/HDL RATIO 3.0 0.0 - 4.5 04/05/2024 11:18 AM [facility] VLDL CALCULATION 21 5 - 55 MG/DL 04/05/2024 11:18 AM [facility] LIPID INTERPRETATION 04/05/2024 11:18 AM [facility] Comment: NIH CONCENSUS REPORT RECOMMENDATIONS: ADULT CHILD LOW RISK: CHOLESTEROL <200 <170 TRIGLYCERIDE <150 --- HDL >=60 --- LDL <100 <110 BORDERLINE: CHOLESTEROL 200-239 170-199 TRIGLYCERIDE 150-199 --- HDL 40-59 --- LDL 100-159 110-129 HIGH RISK: CHOLESTEROL >=240 >=200 TRIGLYCERIDE >=200 --- HDL <40 --- LDL >=160 >=130 04/05/2024 10:1 6 AM [facility] Hue CACERES LABORATORY Final Result Performing Organization Address City/State/[facility] Co de Phone Number [facility] [address] [place] [address], * (ABNORMAL) CBC, AUTO, NO DIFF (04/05/2024 10:16 AM EDUCATION TECHNICIAN) WBC 5.41 4.4 - 11.0 x10'3/uL 04/05/2024 10:36 AM [facility] RBC 4.76 4.50 - 5.90 x10'6/uL 04/05/2024 10:36 AM [facility] HGB 14.7 14.0 - 17.5 G/DL 04/05/2024 10:36 AM [facility] HCT 44.5 41.5 - 50.4 % 04/05/2024 10:36 AM [facility] MCV 93.5 80.0 - 96.0 FL 04/05/2024 10:36 AM [facility] MCH 30.9 26.5 - 31.4 PG 04/05/2024 10:36 AM [facility] MCHC 33.0 31.9 - 34.8 G/DL 04/05/2024 10:36 AM [facility] RDW 12.9 12.3 - 14.3 % 04/05/2024 10:36 AM [facility] PLT 135(L) 151 - 353 x10'3/uL 04/05/2024 10:36 AM [facility] MPV 11.6 9.7 - 11.9 FL 04/05/2024 10:36 AM [facility] 04/05/2024 10:1 6 AM EDUCATION TECHNICIAN Hue Wiggins RODENT EXTERMINATOR LABORATORY Final Result Performing Organization Address City/State/[facility] Co de Phone Number [facility] [address] [place] [address], from Last 3 Months Insurance MEDICARE MEDICARE Advance Directives * Full Code (Latest Code Status on File) Date Activated Date Inactivated Comments 09/17/2019 4:39 PM 09/17/2019 9:37 PM Care Teams Apprentice Architect Relationship Specialty Start Date End Date Chelly Aleman FNP [facility] [address] [place] [address] PCP - General Nurse Practitioner Family 04/05/24 De George MD [facility] [address] [place] [address] [place] [employer] Attendant CARDIOVASCULAR DISEASE 09/03/15 Amanda Marquez MD [facility]. [address] [place] [address] Health Club Attendant CLINICAL CARDIAC ELECTROPHYSIOLOGY 11/02/16
--- OUTSIDE RECORDS SUMMARY | 2024-06-29 12:45 | XMS_ITS | Referral Summary ---
Author Organization [facility] [address] [place] Address [address] [place] [phone] Care Team Providers Care Lidar Technician Name Role Phone Unknown, Notinfile Primary Care [...] on file Legal Sex Male 3:02 AM CROCHET MACHINE OPERATOR Gender Identity Not on file Sexual Orientation Not on file Last Filed Vital Signs Vital Sign Reading Time Taken Comments Blood Pressure 135/87 05/28/2023 11:41 AM CROCHET MACHINE OPERATOR Pulse 83 05/28/2023 11:41 AM CROCHET MACHINE OPERATOR Temperature 36.6 C (97.9 F) 05/28/2023 11:41 AM CROCHET MACHINE OPERATOR Respiratory Rate 20 05/28/2023 11:41 AM CROCHET MACHINE OPERATOR Oxygen Saturation 96% 05/28/2023 11:41 AM CROCHET MACHINE OPERATOR Inhaled Oxygen Concentration - - Weight 130.4 kg (287 lb 8 oz) 05/28/2023 11:41 A M CROCHET MACHINE OPERATOR Height 172.7 cm (5' 8 ) 05/28/2023 11:41 AM CROCHET MACHINE OPERATOR Body Mass Index 43.71 05/28/2023 11:41 AM CROCHET MACHINE OPERATOR Plan of Treatment Not on file Insurance [facility] MEDICARE Care Teams Lidar Technician Relationship Specialty Start Date End Date Unknown, Notinfile PCP - General 05/28/23
--- OUTSIDE RECORDS SUMMARY | 2024-06-29 12:45 | XMS_ITS | Encounter Summary ---
Author Organization [facility] Address [address] [place] [address] Care Team Providers Care Field Test Engineer Name Role Phone De George MD Unavailable [phone] Amanda Marquez MD Unavailable Raymundo Lewis DO Primary Care Provider [phone] Chelly lAeman Primary Care Provider + [phone] Encounter Details Date Type Department Care Team (Late st Contact Info) Description 09/29/2022 MyChart Message Enc [facility] - [facility] [address] [place] [address] Farrah, [facility] Provider Air Quality Message Social History [...] Info) Description 07/04/2024 10:00 AM CDT Appointment [facility] [address] [place] [address] Hue Wiggins FNP 3 [facility] [address] [place] [address] 07/16/2024 1:00 PM CDT Office Visit [facility] [address] [place] [address] De George MD [facility]. [facility] [address] [place] [address] 08/13/2024 9:20 AM CDT Allied Health/Nurse Visit [facility], [address] [place] [address] De George MD [facility]. [address] [place] [address] 11/26/2024 1:30 PM CDT Office Visit [facility] Pulmonology Specialty Clinic - [address] [address] Titus Olmstead DO 3 [facility] [address] [place] [address] 02/25/2025 10:30 AM JUNIOR ELECTRICAL ENGINEER Office Visit [facility] [facility], [address] [place] [address] Kimberly Yee PA-C [facility] [address] [place], [place] [address] documented as of this encounter Visit Diagnoses Not on filedocumented in this encounter Care Teams Field Test Engineer Relationship Specialty Start Date End Date Raymundo Lewis DO [address] [place] [address] [address] [place], [place] [phone] PCP - General FAMILY PRACTICE 01/02/22 04/04/24 Chelly Aleman FNP [address] [place] [address] [address] [place] [address] PCP - General Nurse Practitioner Family 04/05/24 De George MD [facility]. [address] [place] [address] [place] [employer] CARDIOVASCULAR DISEASE 09/03/15 Amanda Marquez MD [facility]. [address] [place], [place] [address] EP [employer] CLINICAL CARDIAC ELECTROPHYSIOLOGY 11/02/16 documented as of this encounter
--- OUTSIDE RECORDS SUMMARY | 2024-06-29 12:45 | XMS_ITS | Encounter Summary ---
Author Organization [facility] Address [address] [place] [address] Care Team Providers Care Biofuels Product Manager Name Role Phone De George MD Unavailable [phone] Simon Madrigal MD Primary Care Provider + [phone] Amanda Marquez MD Unavailable Raymundo Lewis DO Primary Care Provider [phone] Chelly Aleman Primary Care Provider + [phone] Encounter Details Date Type Department Care Team (Late st Contact Info) Description 10/21/2020 Abstract [facility] [address] Dahiana Tejada MA Social History [...] Info) Description 07/04/2024 10:00 AM CDT Appointment [place] [address] [place] [address] Hue Wiggins FNP 3 [facility] [address] [place] [address] 07/16/2024 1:00 PM CDT [facility] [address] [place] [phone] De George MD Three [facility]. [address] [place] [address] 08/13/2024 9:20 AM CDT [facility] THREE [facility], [address] [place] [address] De George MD Three [facility]. [address] [place] [address] 11/26/2024 1:30 PM CDT Office Visit [facility]ty Clinic [facility] [address] [place] [phone] Titus Olmstead DO 3 [facility] [address] [place] [address] 02/25/2025 10:30 AM TEACHING SUPERVISOR [facility] THREE [facility], [address] [place] [address] Kimberly Yee PA-C Three [facility] [address] [place], [place] [address] documented as of this encounter Procedures Procedure [...] 81 10/30/2021 Doc [facility] LABORAT[facility] t - Final * COMPREHENSIVE [...] 7.0 10/30/2021 Doc [facility] Abstract LABORAT[facility] t - Final * LIPID [...] on filedocumented in this encounter Care Teams Biofuels Product Manager Relationship Specialty Start Date End Date Simon Madrigal MD [address] [place] [address] PCP - General INTERNAL MEDICINE 09/03/15 01/01/22 Raymundo Lewis DO [address] [place] [address] [address] [place] [address] PCP - General FAMILY PRACTICE 01/02/22 04/04/24 Chelly Aleman FNP [address] [place] [address] [address] [place], [place] [phone] PCP - General Nurse Practitioner Family 04/05/24 De George MD [address] [place] [address] [place] Government Minister CARDIOVASCULAR DISEASE 09/03/15 Amanda Marquez MD [address] [place] [address] EP Government Minister CLINICAL CARDIAC ELECTROPHYSIOLOGY 11/02/16 documented as of this encounter
--- OUTSIDE RECORDS SUMMARY | 2024-06-29 12:45 | XMS_ITS | CONTINUITY OF CARE DOCUMENT ---
Author Name grant burns Address Unknown Organization [facility] Address [address] [facility] [address] [place] [address] Phone [phone] Care Team Providers Care Load Out Person Name Role Phone Ambrosio IRAHETA, Yamila Unavailable [phone] LASHAWN IRAHETA, AMAN Unavailable [phone] INSURANCE PROVIDERS Payer name Policy type / Coverage type [place] [facility] red green party ID [facility] [id number]
--- OUTSIDE RECORDS SUMMARY | 2024-06-29 12:45 | XMS_ITS | Encounter Summary ---
Author Organization [facility] Address [address] [place] [address] Care Team Providers Care Hospital Cna Name Role Phone De George MD Unavailable [phone] Simon Madrigal MD Primary Care Provider +- [phone] Amanda Marquez MD Unavailable Raymundo Lewis DO Primary Care Provider [phone] Chelly Aleman Primary Care Provider + [phone] Encounter Details Date Type Department Care Team (Late st Contact Info) Description 09/17/2019 Hospital Follow-up Call [facility] [place] [address] Myla Sullivan, RN Social History [...] Status No 09/12/2019 5:05 PM CDT Saloni Badleras RN Active * Because of a physical, [...] Info) Description 07/04/2024 10:00 AM CDT Appointment [facility] [address] [place] [address] Hue Wiggins FNP [address] [place] [address] [address] [place] [address] 07/16/2024 1:00 PM CDT Office Visit [facility] [address] [place] [phone] De George MD [facility]. [facility] [address] [place] [address] 08/13/2024 9:20 AM CDT Allied Health/Nurse Visit [facility], [address] [place] [address] De George MD Three [facility]. [address] [place] [address] 11/26/2024 1:30 PM CDT Office Visit [facility] - [address] [phone] Titus Olmstead DO 3 [facility] [address] [place], [place] [address] 02/25/2025 10:30 AM SERVICE WRITER ADVISOR Office Visit [facility] THREE [facility], [address] [place] [address] Kimberly Yee PA-C Three [facility] [address] [place] [address] documented as of this encounter Visit Diagnoses Not on filedocumented in this encounter Care Teams Hospital Cna Relationship Specialty Start Date End Date Simon Madrigal MD [address] [place] [phone] PCP - General INTERNAL MEDICINE 09/03/15 01/01/22 Raymundo Lewis DO [address] [place] [address] [address] [place] [address] PCP - General FAMILY PRACTICE 01/02/22 04/04/24 Chelly Aleman FNP [address] [place] [address] [address] [place] [address] PCP - General Nurse Practitioner Family 04/05/24 De George MD Three [facility] [address] [place] [address] [place] Coning Machine Operator CARDIOVASCULAR DISEASE 09/03/15 Amanda Marquez MD Three [facility] [address] [place] [address] EP Coning Machine Operator CLINICAL CARDIAC ELECTROPHYSIOLOGY 11/02/16 documented as of this encounter
--- OUTSIDE RECORDS SUMMARY | 2024-06-29 12:45 | XMS_ITS | Encounter Summary ---
Author Organization [facility] Address [address] [place] [address] Care Team Providers Care Hoist Worker Name Role Phone De George MD Unavailable [phone] Simon Madrigal MD Primary Care Provider + [phone] Amanda Marquez MD Unavailable Raymundo Lewis DO Primary Care Provider [phone] Chelly Aleman Primary Care Provider + [phone] Encounter Details Date Type Department Care Team (Late st Contact Info) Description 07/24/2018 Hospital Orders Only [facility] Casino Enforcement [place] [address] Amanda Marquez MD Three [facility]. [facility] [address] [place] [address] Social History Tobacco Use Types [...] Info) Description 07/04/2024 10:00 AM CDT Appointment [facility] [address] [place] [address] Hue Wiggins FNP 3 [facility] [address] [place] [address] 07/16/2024 1:00 PM CDT Office Visit [place] [facility] [address] [place] [phone] De George MD Three [facility]. [address] [place], [place] [address] 08/13/2024 9:20 AM CDT Allied Health/Nurse [facility] [place] THREE [facility], [facility] [address] [place] [address] De George MD Three [facility]. [facility] [address] [place], [place] [address] 11/26/2024 1:30 PM CDT Office [facility] Pul[facility]ology Specialty [facility] [address] [place] [address] Titus Olmstead DO 3 [facility] [address] [place] [address] 02/25/2025 10:30 AM FIBERGLASS MODEL MAKER Office Visit [facility] [place] [place] THREE [facility], [facility] [address] [place], [place] [address] Kimberly Yee PA-C Three [facility] [address] [place], [place] [address] documented as of this encounter Visit Diagnoses Not on filedocumented in this encounter Additional Health Concerns Infection Onset Date Last Indicated Resolved Time COVID-19 Rule Out 09/14/2019 09/14/2019 09/15/2019 11:53 AM CDT documented as of this encounter Care Teams Hoist Worker Relationship Specialty Start Date End Date Simon Madrigal MD [address] [place] [address] PCP - General INTERNAL MEDICINE 09/03/15 01/01/22 Raymundo Lewis DO [address] [place] [address] [address] [place] [address] PCP - General FAMILY PRACTICE 01/02/22 04/04/24 Chelly Aleman FNP [address] [place] [address] [address] [place], [place] [address] PCP - General Nurse Practitioner Family 04/05/24 De George MD [address] [place], [place] [address] [place] Business Leader CARDIOVASCULAR DISEASE 09/03/15 Amanda Marquez MD [address] [place], [place] [address] EP Business Leader CLINICAL CARDIAC ELECTROPHYSIOLOGY 11/02/16 documented as of this encounter
--- OUTSIDE RECORDS SUMMARY | 2024-06-29 12:45 | XMS_ITS | Clinical Summary ---
Author Organization [facility] [address] Address [address] [place] [id number] Care Team Providers Care Claims Adjuster Crop Name Role Phone Unknown, Notinfile Primary Care [...] on file Legal Sex Male 3:02 AM SHEAR GRINDER OPERATOR HELPER Gender Identity Not on file Sexual Orientation Not on file Obstetrics History Last Filed Vital Signs Vital Sign Reading Time Taken Comments Blood Pressure 135/87 05/28/2023 11:41 AM SHEAR GRINDER OPERATOR HELPER Pulse 83 05/28/2023 11:41 AM SHEAR GRINDER OPERATOR HELPER Temperature 36.6 C (97.9 F) 05/28/2023 11:41 AM SHEAR GRINDER OPERATOR HELPER Respiratory Rate 20 05/28/2023 11:41 AM SHEAR GRINDER OPERATOR HELPER Oxygen Saturation 96% 05/28/2023 11:41 AM SHEAR GRINDER OPERATOR HELPER Inhaled Oxygen Concentration - - Weight 130.4 kg (287 lb 8 oz) 05/28/2023 11:41 A M SHEAR GRINDER OPERATOR HELPER Height 172.7 cm (5' 8 ) 05/28/2023 11:41 AM SHEAR GRINDER OPERATOR HELPER Body Mass Index 43.71 05/28/2023 11:41 AM SHEAR GRINDER OPERATOR HELPER Plan of Treatment Health Maintenance Due Date [...] Pneumococcal vaccine 65+ Completed 10/17/2014, 11/2012 Insurance [facility] MEDICARE Care Teams Claims Adjuster Crop Relationship Specialty Start Date End Date Unknown, Notinfile PCP - General 05/28/23
--- OUTSIDE RECORDS SUMMARY | 2024-06-29 12:52 | XMS_ITS | CONTINUITY OF CARE DOCUMENT ---
Author Name grant burns Address Unknown Organization [facility] Address [address] [facility] [address] [place] [address] Phone [phone] Care Team Providers Care General Internist Name Role Phone Ambrosio IRAHETA, Yamila Unavailable LASHAWN IRAHETA, AMAN Unavailable INSURANCE PROVIDERS Payer name Policy type / Coverage type [place] red republican ID [facility] [id number]
--- NOTE | 2024-06-29 12:55 | ED.SKABFB ---
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 He has 3 puncture wounds on his left hand to include his pointer finger and his 3rd digit. He accidentally slipped while working on a zipper with the letter farmworker poultry and punctured his skin. MD complaint: other ( Puncture wound) Onset (ago): day(s) ( 1) Tetanus up to date: no Location: LUE ( hand) and L hand Severity: moderate Severity scale (1-10): 4 Quality: stabbing and sharp Pain Consistency: constant Relieving factors: immobilization Exacerbating factors: palpation and movement Context: other ( patient punctured his left hand with a letter farmworker poultry yesterday 3 times) Associated symptoms: other ( pain and swelling of the left hand after the puncture wounds) Treatments prior to arrival: none Related Data Home Medications ?Medication ?Instructions ?Recorded ?Confirmed ?Last Taken ?Type apixaban 5 mg tablet (Eliquis) 5 mg PO BID 04/10/19 04/03/24 10/07/23 History atorvastatin 10 mg tablet (Lipitor) 10 mg PO DAILY 04/10/19 04/03/24 10/11/23 History loratadine 10 mg tablet 10 mg PO DAILY 04/24/19 04/03/24 10/11/23 History magnesium 250 mg tablet 250 mg PO DAILY 04/24/19 04/03/24 10/07/23 History vit C 250 mg-vit E 90 mg-zinc 40 1 tablet PO BID 04/24/19 04/03/24 10/07/23 History mg-copper 1 lp-tarfee-jggkni capsule (PreserVision AREDS-2) ascorbic acid (vitamin C) 500 mg 500 mg PO DAILY 02/18/22 04/03/24 10/07/23 History capsule cholecalciferol (vitamin D3) 50 1,000 unit PO DAILY 06/22/22 04/03/24 10/07/23 History mcg (2,000 unit) tablet acetaminophen 500 mg capsule 500 mg PO PRN PRN Pain 08/22/23 04/03/24 Unknown History metoprolol succinate 25 mg 12.5 mg PO BID 10/18/23 04/03/24 Unknown History tablet,extended release 24 hr Allergies Allergy/AdvReac Type Severity Reaction Status Date / Time cat dander Allergy Severe Difficulty Verified 04/03/24 12:11 Breathing latex Allergy Intermediate Rash Verified 04/03/24 12:11 dextromethorphan (From Allergy Mild Hives Verified 04/03/24 12:11 NyQuil) doxylamine (From NyQuil) Allergy Mild Hives Verified 04/03/24 12:11 pseudoephedrine (From NyQuil) Allergy Mild Hives Verified 04/03/24 12:11 Review of Systems Review of Systems: All systems reviewed & are unremarkable except as noted in HPI and below Constitutional: Constitutional: Reports no additional constitutional complaints Eyes: Eyes: Reports no additional eye complaints ENT: Reports system reviewed and no additional complaints, except as documented Cardiovascular: Cardiovascular: Reports no additional cardiovascular complaints Respiratory: Respiratory: Reports no additional respiratory complaints Gastrointestinal: Gastrointestinal: Reports no additional gastrointestinal complaints Genitourinary: Genitourinary: Reports no additional male genitourinary complaints Musculoskeletal: Musculoskeletal: Reports no additional musculoskeletal complaints Integumentary/Breasts: Skin/Breast: Reports system reviewed and no additional complaints, except as docu Neurologic: Reports system reviewed and no additional complaints, except as documented Psychiatric: Psychiatric: Reports no additional psychiatric complaints Endocrine: Endocrine: Reports no additional endocrine complaints Hematologic/Lymphatic: Hematologic/Lymphatic: Reports no additional hematologic/lymphatic complaints Allergic/Immunologic: Allergic/Immunologic: Reports no additional allergic/immunologic complaints PMFSH Past Medical History Medical History Sleep apnea History of pacemaker Atrial fibrillation Surgical History Surgical History History of toe surgery History of cholecystectomy History of hernia repair History of shoulder surgery 2015 Family History Family History Mother Family history of malignant neoplasm Carcinoma of colon, Onset Age: 67 Father Heart disease Pacemaker Carpal tunnel syndrome Appendicitis Sibling Cancer Pancreatic cancer Sibling Pancreatic cancer Social History Social History Social History: caffeine- 1 diet coke a few days a week Smoking status: Never smoker Second hand tobacco smoke exposure: Yes Alcohol intake: former Substance use: never Substance use type: does not use Do You Feel Safe in your Home?: Yes Lack of Transportation: No Lack of Food: Never True Current Housing: I Have Housing Concerned About Future Housing: No Difficulty Paying Gas/Electric Bills: No Difficulty Paying for Meds: No Currently Unemployed: No Education: High School Diploma/GED Difficulty w/ Childcare or Family Care: No Living arrangements: with family Occupation/Education: retired 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 Gender identity (if verbalized by the patient): Male Spiritual care concerns: No Exam Const: General: healthy appearing Nutritional Appearance: well nourished Orientation/consciousness: patient oriented x3 Limitations: no limitations HENMT: Head: normal to inspection Ears: external ears normal Face/Nose/Sinus: Normal external nose present Eyes: Conjunctivae: conjunctivae normal Pupils: Equal, round and reactive pupils present EOM: EOMs intact bilaterally Neck: Neck: normal visual inspection Chest: Chest palpation & inspection: normal inspection of the chest Resp: Effort & Inspection: normal respiratory effort and not labored Auscultation: clear to auscultation bilaterally and no crackles Cardio: Rate: regular rate Rhythm: regular rhythm Heart sounds: no murmurs GI: Inspection: non-distended GI Palp: No Tenderness to palpation present (GI) Auscultation: normal bowel sounds : General: Yes bladder normal to palpation Back/Spine/Pelvis: Back: no CVA tenderness Skin: General skin exam: normal color Rashes: no rashes Wounds: wound noted Other: left hand pointer finger has a nailbed small puncture wound and the 3rd digit has 2 small puncture wounds; local area is red and swollen with difficulty of moving fingers due to the swelling and pain Neuro: General: patient oriented x3 Cranial nerves: Yes Nystagmus not present Speech: normal speech Extrem: General: abnormal to inspection ( see skin exam) Psych: Mental Status: mental status grossly normal Affect: normal affect Attitude: cooperative Course Vital Signs Vital signs: Vital Signs Temperature 36.6 C 06/29/24 12:21 Pulse Rate 80 06/29/24 12:21 Respiratory Rate 18 06/29/24 12:21 Blood Pressure 130/84 06/29/24 12:21 Pulse Oximetry 99 06/29/24 12:21 Oxygen Delivery Room Air 06/29/24 12:21 Temperature 36.6 C 06/29/24 12:21 Pulse Rate 80 06/29/24 12:21 Respiratory Rate 18 06/29/24 12:21 Blood Pressure 130/84 06/29/24 12:21 Pulse Oximetry 99 06/29/24 12:21 Oxygen Delivery Room Air 06/29/24 12:21 MDM - Skin/Abscess/Foreign Bdy MDM Narrative Medical decision making narrative: patient is a 84-year-old male with a left hand x3 puncture wound from a letter farmworker poultry. We will give him a tetanus shot and Rocephin IM. He will go home with Bactrim. Discharge Plan Discharge Clinical Impression: Cellulitis of hand Puncture wound of hand Qualifiers: Encounter type: initial encounter Foreign body presence: without foreign body Laterality: left Qualified Code(s): S61.432A - Puncture wound without foreign body of left hand, initial encounter Patient Disposition: Home, Self-Care Condition: Stable Instructions: Antibiotic Form, Puncture Wound (ED) Patient Language: Pashto Prescriptions: New sulfamethoxazole-trimethoprim [Bactrim DS] 800-160 mg tablet 1 tablet PO BID 10 Days Qty: 20 0RF No Action Eliquis 5 mg tablet 5 mg PO BID atorvastatin [Lipitor] 10 mg tablet 10 mg PO DAILY loratadine 10 mg tablet 10 mg PO DAILY PreserVision AREDS-2 431-098-30-1 uv-ztke-ti-mg capsule 1 tablet PO BID Rx Instructions: administer with meals magnesium 250 mg tablet 250 mg PO DAILY cholecalciferol (vitamin D3) 50 mcg (2,000 unit) tablet 1,000 unit PO DAILY metoprolol succinate 25 mg tablet extended release 24 hr 12.5 mg PO BID albuterol sulfate [Proventil HFA] 90 mcg/actuation HFA aerosol inhaler 1 inh inhalation QID PRN (Reason: Shortness Of Breath) Qty: 8.5 2RF (DME) nebulizer and compressor Device See Rx Instructions .Route Qty: 1 0RF Rx Instructions: As directed acetaminophen 500 mg Capsule 500 mg PO PRN PRN (Reason: Pain) ascorbic acid (vitamin C) 500 mg Capsule 500 mg PO DAILY losartan-hydrochlorothiazide 100-12.5 mg tablet 1 tablet PO DAILY Qty: 30 0RF Rx Instructions: LAST REFILL UNTIL SEEN omeprazole 40 mg capsule,delayed release(DR/EC) 40 mg PO DAILY Qty: 30 5RF tamsulosin 0.4 mg capsule 0.4 mg PO DAILY Qty: 30 0RF Follow-up/Referrals: Chelly Aleman NP [Primary Care Provider] - Time of Disposition: 13:18
[2024-06-29] MEDS: TETANUS,DIPHTHERIA,AC PERTUSSIS ADULT 0.5 ML (ADACEL) IM (13:22)
[2024-06-29] MEDS: cefTRIAXone 1 GM, LIDOCAINE 1% LOCAL INJ 2.1 ML IM (13:25)
[2024-06-29 13:36] VITALS: BP 132/76; PULSE 80; RESP 20; O2SAT 98
== END 2024-06-29 13:36 | disposition home or self-care (01) ==
PROVIDERS: Emergency Provider Emergency Medicine; PCP Nurse Practitioner Family
DX: S61.432A Puncture wound without foreign body of left hand, initial encounter (principal); L03.114 Cellulitis of left upper limb; I48.91 Unspecified atrial fibrillation; Z23 Encounter for immunization; W26.8XXA Contact with other sharp object(s), not elsewhere classified, initial encounter
CPT/HCPCS: 90471; 90715; 96372; 99283; J0696; J2003

== ENCOUNTER 2024-08-02 10:48 | Outpatient (CLI) | payer MEDICARE, SELFPAY ==
--- OUTSIDE RECORDS SUMMARY | 2024-08-02 11:44 | XMS_ITS | Encounter Summary ---
Author Organization [facility] Address [address] [place] [address] Care Team Providers Care Stone Layout Marker Name Role Phone De George MD Unavailable [phone] Simon Madrigal MD Primary Care Provider + [phone] Amanda Marquez MD Unavailable Raymundo Lewis DO Primary Care Provider [phone] Chelly Aleman Primary Care Provider + [phone] Encounter Details Date Type Department Care Team (Late st Contact Info) Description 07/24/2018 Hospital Orders Only [facility] [place] [address] Amanda Marquez MD Three [facility]. [address] [place] [address] Social History Tobacco Use Types [...] Care Team (Late st Contact Info) Description 08/13/2024 9:20 AM CDT [facility] THREE [facility] [address] [place] [address] De George MD Three [facility]. [facility] [address] [place] [address] 11/26/2024 1:30 PM CDT Office Visit [facility] Pulmonology Specialty Clinic [facility] [address] [place] [phone] Titus Olmstead DO 3 [facility] [address] [place] [address] 01/14/2025 1:30 PM CDT Office Visit [place] [facility] [address] [place] [address] Hue Wiggins FNP 3 [facility] [address] [place] [address] 02/25/2025 10:30 AM INTERVENTIONAL SALE CONSULTANT [facility] [address] [place] [address] Kimberly Yee PA-C documented as of this encounter Visit Diagnoses Not on filedocumented in this encounter Additional Health Concerns Infection Onset Date Last Indicated Resolved Time COVID-19 Rule Out 09/14/2019 09/14/2019 09/15/2019 11:53 AM CDT documented as of this encounter Care Teams Stone Layout Marker Relationship Specialty Start Date End Date Simon Madrigal MD [address] [place] [address] PCP - General INTERNAL MEDICINE 09/03/15 01/01/22 Raymundo Lewis DO [address] [place] [address] [address] [place] [address] PCP - General FAMILY PRACTICE 01/02/22 04/04/24 Chelly Aleman FNP [address] [place] [address] [address] [place], [place] [address] PCP - General Nurse Practitioner Family 04/05/24 De George MD [facility]. [address] [place], [place] [address] [place] Cad Design Engineer CARDIOVASCULAR DISEASE 09/03/15 Amanda Marquez MD [facility]. [address] [place], [place] [id number] EP Cad Design Engineer CLINICAL CARDIAC ELECTROPHYSIOLOGY 11/02/16 documented as of this encounter
--- OUTSIDE RECORDS SUMMARY | 2024-08-02 11:44 | XMS_ITS | Encounter Summary ---
Author Organization [facility] Address [address] [place] [address] Care Team Providers Care Career Resource Technician Name Role Phone De George MD Unavailable [phone] Amanda Marquez MD Unavailable Raymundo Lewis DO Primary Care Provider [phone] Chelly Aleman Primary Care Provider + [phone] Encounter Details Date Type Department Care Team (Late st Contact Info) Description 09/29/2022 MyChart Message Enc [facility] - [facility] [address] [place] [address] Far[place], [facility] Provider Air Quality Message Social History Tobacco [...] 08/13/2024 9:20 AM CDT Allied Health/Nurse Visit [facility], [facility] [address] [place] [address] De George MD [facility]. [facility] [address] [place] [address] 11/26/2024 1:30 PM CDT Office Visit [facility] [id number] [place] [phone] Titus Olmstead DO 3 [facility] [address] [place] [address] 01/14/2025 1:30 PM CDT Office Visit [facility] [address] [phone] Hue Wiggins FNP 3 [facility] [address] [place] [address] 02/25/2025 10:30 AM FISHING GEAR MECHANIC Office Visit [facility] [facility], [address] [place] [address] Kimberly Yee PA-C documented as of this encounter Visit Diagnoses Not on filedocumented in this encounter Care Teams Career Resource Technician Relationship Specialty [place] [address] [place] [address] [address] [place], [place] [phone] PCP - General FAMILY PRACTICE 01/02/22 04/04/24 Chelly Aleman FNP [address] [place] [address] [address] [place], [place] [phone] PCP - General Nurse Practitioner Family 04/05/24 De George MD [facility]. [address] [place] [address] [place] Char Belt Operator CARDIOVASCULAR DISEASE 09/03/15 Amanda Marquez MD Three [facility]. [address] [place] [address] EP Char Belt Operator CLINICAL CARDIAC ELECTROPHYSIOLOGY 11/02/16 documented as of this encounter
--- OUTSIDE RECORDS SUMMARY | 2024-08-02 11:44 | XMS_ITS | Encounter Summary ---
Author Organization [facility] Address [address] [place] [address] Care Team Providers Care Security Officer Supervisor Name Role Phone De George MD Unavailable [phone] Simon Madrigal MD Primary Care Provider [phone] Amanda Marquez MD Unavailable Raymundo Lewis DO Primary Care Provider [phone] Chelly Aleman Primary Care Provider [phone] Encounter Details Date Type Department Care Team (Late st Contact Info) Description 09/17/2019 Hospital Follow-up Call [facility] [place] [address] Myla Sullivan, RN Social History [...] 08/13/2024 9:20 AM CDT Allied Health/Nurse Visit [facility] [address] De George MD [facility] [address] [place] [address] 11/26/2024 1:30 PM CDT Office Visit [facility] - [address] [address] Titus Olmstead DO [address] [place] [address] [address] [place] [address] 01/14/2025 1:30 PM CDT Office Visit [place] [facility] [address] [place] [address] Hue Wiggins, MORRIS 3 [facility] [address] [place] [address] 02/25/2025 10:30 AM AVIATION ENGINEER Office [facility] [place] [facility] [address] [place] [address] Kimberly Yee PA-C documented as of this encounter Visit Diagnoses Not on filedocumented in this encounter Care Teams Security Officer Supervisor Relationship Specialty Start Date End Date Simon Madrigal MD [address] [place] [address] PCP - General INTERNAL MEDICINE 09/03/15 01/01/22 Raymundo Lewis DO [address] [place] [address] [address] [place] [address] PCP - General FAMILY PRACTICE 01/02/22 04/04/24 Chelly Aleman FNP [address] [place] [address] [address] [place] [address] PCP - General Nurse Practitioner Family 04/05/24 De George MD [facility]. [address] [place] [address] [place] Endoscopy Technician CARDIOVASCULAR DISEASE 09/03/15 Amanda Marquez MD [facility]. [address] [place] [address] EP Endoscopy Technician CLINICAL CARDIAC ELECTROPHYSIOLOGY 11/02/16 documented as of this encounter
--- OUTSIDE RECORDS SUMMARY | 2024-08-02 11:44 | XMS_ITS | Encounter Summary ---
Author Organization [facility] Address [address] [place] [address] Care Team Providers Care Duplex Trimmer Name Role Phone De George MD Unavailable [phone] Simon Madrigal MD Primary Care Provider + [phone] Amanda Marquez MD Unavailable Raymundo Leiws DO Primary Care Provider [phone] Chelly Aleman Primary Care Provider + [phone] Encounter Details Date Type Department Care Team (Late st Contact Info) Description 10/21/2020 Abstract [facility] [address] Dahiana Tejada MA Social History [...] 9:20 AM CDT Allied Health[facility] [address] [address] De George MD [facility]. [facility] [address] [place] [address] 11/26/2024 1:30 PM CDT Office Visit [facility] [address] [phone] Titus Olmstead DO 3 [facility] [address] [place] [phone] 01/14/2025 1:30 PM CDT Office Visit [place] [facility] [address] [place] [phone] Hue Wiggins FNP 3 [facility] [address] [place] [address] 02/25/2025 10:30 AM CONCRETE POLISHER Office Visit [facility] [address] [facility], [address] [place] [address] Kimberly Yee PA-C documented as of this encounter Procedures Procedure [...] 38 TRIGLYCERIDES 139 DIRECT LDL 81 10/30/2021 us Doc [facility] Abstract LABORATORY Edited Resul t - Final * COMPREHENSIVE METABOLIC PANEL (10/30/2021) SODIUM S/P/B 142 POTASSIUM S/P/B 4.2 CO2 30 CHLORIDE S/P/B 103 GLUCOSE 96 mg/dL CALCIUM S/P/B 8.9 BUN 20 CREATININE S/P/B 0.80 0.7 - 1.3 EGFR NON-AFR. AMER. >60 <=90 ALKALINE PHOSPHATASE S/P/B 82 ALT 32 AST 37 BILIRUBIN TOTAL S/P/B 0.7 ALBUMIN S/P/B 4.4 3.5 - 5.0 TOTAL PROTEIN S/P/B 7.0 10/30/2021 us Doc [facility] Abstract LABORATORY Edited Resul t - Final * LIPID PANEL (10/20/2020) CHOLESTEROL 149 HDL 43 TRIGLYCERIDES 116 LDL (CALCULATED) 85 10/20/2020 us Doc [facility] Abstract LABORATORY Final Result * [...] on filedocumented in this encounter Care Teams Duplex Trimmer Relationship Specialty Start Date End Date Simon Madrigal MD [address] [place] [address] PCP - General INTERNAL MEDICINE 09/03/15 01/01/22 Raymundo Lewis DO [address] [place] [address] [address] [place] [address] PCP - General FAMILY PRACTICE 01/02/22 04/04/24 Chelly Aleman FNP [address] [place] [address] [address] [place] [address] PCP - General Nurse Practitioner Family 04/05/24 De [facility] [address] [place], [place] [phone] [place] Law Examiner CARDIOVASCULAR DISEASE 09/03/15 Amanda [facility] [address] [place], [place] [id number] EP Law Examiner CLINICAL CARDIAC ELECTROPHYSIOLOGY 11/02/16 documented as of this encounter
--- OUTSIDE RECORDS SUMMARY | 2024-08-02 11:44 | XMS_ITS | Clinical Summary ---
Author Organization [facility] [address] Address [address] [place] [address] Care Team Providers Care Jig Boring Machine Operator For Metal Name Role Phone Unknown, Notinfile Primary Care [...] on file Legal Sex Male 3:02 AM SOFT SUGAR OPERATOR HEAD Gender Identity Not on file Sexual Orientation Not on file Obstetrics History Last Filed Vital Signs Vital Sign Reading Time Taken Comments Blood Pressure 135/87 05/28/2023 11:41 AM SOFT SUGAR OPERATOR HEAD Pulse 83 05/28/2023 11:41 AM SOFT SUGAR OPERATOR HEAD Temperature 36.6 C (97.9 F) 05/28/2023 11:41 AM SOFT SUGAR OPERATOR HEAD Respiratory Rate 20 05/28/2023 11:41 AM SOFT SUGAR OPERATOR HEAD Oxygen Saturation 96% 05/28/2023 11:41 AM SOFT SUGAR OPERATOR HEAD Inhaled Oxygen Concentration - - Weight 130.4 kg (287 lb 8 oz) 05/28/2023 11:41 A M SOFT SUGAR OPERATOR HEAD Height 172.7 cm (5' 8 ) 05/28/2023 11:41 AM SOFT SUGAR OPERATOR HEAD Body Mass Index 43.71 05/28/2023 11:41 AM SOFT SUGAR OPERATOR HEAD Plan of Treatment Health Maintenance Due Date [...] Pneumococcal vaccine 65+ Completed 10/17/2014, 11/2012 Insurance [facility] MEDICARE Care Teams Jig Boring Machine Operator For Metal Relationship Specialty Start Date End Date Unknown, Notinfile PCP - General 05/28/23
--- OUTSIDE RECORDS SUMMARY | 2024-08-02 11:44 | XMS_ITS | Referral Summary ---
Author Organization [facility] [address] Address [address] [place] [address] Care Team Providers Care Patient Account Representative Name Role Phone Unknown, Notinfile Primary Care [...] on file Legal Sex Male 3:02 AM RAT FARMER Gender Identity Not on file Sexual Orientation Not on file Last Filed Vital Signs Vital Sign Reading Time Taken Comments Blood Pressure 135/87 05/28/2023 11:41 AM RAT FARMER Pulse 83 05/28/2023 11:41 AM RAT FARMER Temperature 36.6 C (97.9 F) 05/28/2023 11:41 AM RAT FARMER Respiratory Rate 20 05/28/2023 11:41 AM RAT FARMER Oxygen Saturation 96% 05/28/2023 11:41 AM RAT FARMER Inhaled Oxygen Concentration - - Weight 130.4 kg (287 lb 8 oz) 05/28/2023 11:41 A M RAT FARMER Height 172.7 cm (5' 8 ) 05/28/2023 11:41 AM RAT FARMER Body Mass Index 43.71 05/28/2023 11:41 AM RAT FARMER Plan of Treatment Not on file Insurance [facility] MEDICARE Care Teams Patient Account Representative Relationship Specialty Start Date End Date Unknown, Notinfile PCP - General 05/28/23
--- OUTSIDE RECORDS SUMMARY | 2024-08-02 11:44 | XMS_ITS | CONTINUITY OF CARE DOCUMENT ---
Author Name grant burns Address Unknown Organization [facility] Address [address] [place] [address] Phone [phone] Care Team Providers Care Camera Repairman Name Role Phone Ambrosio IRAHETA, Yamila Unavailable [phone] LASHAWN IRAHETA, AMAN Unavailable [phone] INSURANCE PROVIDERS Payer name Policy type / Coverage type Orcas red alliance party ID [facility] Blue [facility] [id number]
--- OUTSIDE RECORDS SUMMARY | 2024-08-02 11:44 | XMS_ITS | Clinical Summary ---
Author Organization [facility] Address [address] [place] [address] Care Team Providers Care Senior Counsel Commercial Name Role Phone De George MD Unavailable [phone] Amanda Marquez MD Unavailable Chelly Aleman Primary Care Provider + [phone] Allergies Active Allergy Reactions Criticality Noted Date Comments Yaritza Varghese 01/15/2016 Medications Ascorbic Acid (VITAMIN C) 500 MG Cap [...] 3 022 Active Nebulizers (INNOSPIRE ELEGANCE NEBULIZER) [facility] [place] administration instructions. 022 Active albuterol (PROVENTIL) (2.5 MG/3ML) 0.083% nebulizer solution Take 3 mLs (2.5 mg total) by nebulization every 6 (six) hours as needed for Wheezing. Active TRELEGY ELLIPTA 100-62.5-25 MCG/ACT AEROSOL POWDER, BREATH ACTIVATED Using as needed 023 Active metoprolol tartrate (LOPRESSOR) 25 MG tablet TAKE ONE TABLET BY MOUTH TWICE A DAY 180 tablet 025 Active atorvastatin (LIPITOR) 10 MG tablet TAKE ONE TABLET BY MOUTH BEDTIME 90 tablet 025 Active apixaban (ELIQUIS) 5 MG tablet TAKE ONE TABLET BY MOUTH TWICE A DAY 180 tablet 1 025 Active losartan-hydroC HLOROthiazide (HYZAAR) 100-12.5 MG tablet TAKE ONE TABLET BY MOUTH DAILY 90 tablet 1 Active omeprazole (PRILOSEC) 40 MG capsule Take 1 capsule (40 mg total) by mouth daily. 90 capsule 3 025 2025 Active nitroglycerin (NITROSTAT) 0.[address] 1 tablet (0.4 mg total) under the tongue every 5 (five) minutes as needed for Chest Pain. Maximum of 3 doses. If taking 3rd dose, call 911 25 tablet 2 Active omeprazole 40 MG capsule Take 1 tablet by mouth daily. 013 2024 Discontinued nitroglycerin (NITROSTAT) 0.[address] 1 tablet (0.4 mg total) under the tongue every 5 (five) minutes as needed for Chest Pain. Maximum of 3 doses. If taking 3rd dose, call 911 25 tablet 1 023 2024 Discontinued(R eorder) apixaban (ELIQUIS) 5 MG tablet Take 1 tablet (5 mg total) by mouth 2 (two) times daily. 180 tablet 4 024 2024 Discontinued losartan-hydroC HLOROthiazide (HYZAAR) 100-12.5 MG tablet Take 1 tablet by mouth daily. 90 tablet 3 024 2024 Discontinued Active Problems Problem Noted Date Diagnosed Date Pacemaker 09/17/2019 Overview (05/27/2021): STJ Quadra Allure CRTP implanted 09/17/2019, along with a CS lead for NICM/CHB, Atrial and RV leads are chronic from 08/14/2004. Atrial fibrillation with RVR ([facility]) 0 09/12/2019 Non-rheumatic mitral regurgitation 05/25/2018 Morbid obesity 12/09/2016 Atrial fibrillation ([facility]) 12/07/2016 JORDON on CPAP 12/07/2016 SSS (sick sinus syndrome) ([facility]) Hypertension, essential Dyslipidemia CHB (complete heart block) ([facility]) Bradycardia Resolved Problems Problem Noted Date Diagnosed Date Resolved Date Asthma ([facility]) 01/26/2017 08/06/2021 Encounters Date Type Department Care Team Description 07/16/2024 1:00 PM CDT [facility] [address] [place] [address] De George MD Sick Sinus Syndrome; Atrial Fibrillation; Mitral Valve Disorders 07/16/2024 Travel 07/04/2024 10:00 AM CDT - 07/04/2024 11:59 PM CDT Hospital Encounter [facility] Ultrasound [address] [place] [address] Hue Wiggins FNP Discharge Disposition: Home or Self Care (Routine Discharge) 07/04/2024 Travel 05/08/2024 Scan HEALTH INFO SRVCS Scanned, Doc Med Group from Last 3 Months Immunizations Immunization Administration Dates Next Due Influenza Adult (Generic) [...] Sign Reading Time Taken Comments Blood Pressure 130/80 07/16/2024 12:36 PM CDT Pulse 80 07/16/2024 12:36 PM CDT Temperature 36.6 C (97.9 F) 09/26/2023 11:25 AM CDT Respiratory Rate 18 09/26/2023 11:25 AM CDT Oxygen Saturation 98% 02/20/2024 10:21 AM RESTAURANT RECRUITER Inhaled Oxygen Concentration - - Weight 132 kg (291 lb) 07/16/2024 12:36 PM CDT Height 172.7 cm (5' 8 ) 07/16/2024 12:36 PM CDT Body Mass Index 44.25 07/16/2024 12:36 PM CDT Plan of Treatment Upcoming Encounters Date Type Department Care Team (Late st Contact Info) Description 08/13/2024 9:20 AM CDT Allied Health/Nurse Visit [facility], [address] [place], [place] [address] De George MD Three [facility]. [address] [place], [place] [address] 11/26/2024 1:30 PM CDT Office Visit [facility] Group Pulmonology Specialty Clinic [facility] [address] [place] [address] Titus Olmstead DO 3 [facility] [address] [place], [place] [address] 01/14/2025 1:30 PM CDT Office Visit [facility] [address] [place] [phone] Hue Wiggins FNP 3 [facility] [address] [place] [address] 02/25/2025 10:30 AM RESTAURANT RECRUITER Office Visit [facility] [address], [address] [place] [address] Kimberly Yee PA-C Health Maintenance Due Date Last Done Comments Annual Medicare Wellness Visit 2007 RSV Immunization or 60+ Years (1 - 1-dose 75+ series) 2017 Zoster Vaccines (2 of 2) 01/10/2018 11/15/2017 COVID-19 Vaccine ( - 2023-2 5 season) 2023 PHQ-2 (Physician [place]) 04/04/2024 DTaP, Tdap and Td Vaccines ( 2 - Td or Tdap) 10/17/2024 10/17/2014 Pneumococcal Vaccine: 50+ Years Completed 10/17/2014, 08/09/2012 Meningococcal B Vaccine Aged Out No l onger eligible based on patient's age to complete this topic Meningococcal Vaccine Aged Out No rickey andre eligible based on patient's age to complete this topic RSV Immunizations Under 20 Months Aged Out No longer eligible b ased on patient's age to complete this topic Medical Devices Implanted Type Area Green Marketing Specialist Device Identifier Shelf Expiration Date Model / Serial / Lot Atrial Lead- 5 Implanted: by Arpan Pollard MD (Quantity not on file) Lead Implant [facility] [id number] / [id number] / Rv Lead- 5 Implanted: by Arpan Pollard MD (Quantity not on file) Lead Implant [facility] [id number] / [id number] / Lv Lead Implanted:Qty : 1 on 09/17/2019 by Amanda Marquez MD Lead Implant [employer]IC CARDIAC RHYTHM AND HEART FAILURE - DIV M 06/05/2021 [id number] / [id number] / [facility] [employer] Pacemaker-08/05 Implanted:07/2011 by Arpan Pollard MD (Quantity not on file) Explanted: by Amanda Marquez MD (Quantity not on file) Pacemaker [facility] [id number] / [id number] / Sj Pacemaker-2 08/2018 Implanted: by Amanda Marquez MD (Quantity not on file) Explanted:Qty : 1 on 09/17/2019 by Amanda Marquez MD Pacemaker [facility] [id number] / [id number] / Sja Pacemaker 09/17/19 Implanted:Qty : 1 on 09/17/2019 by Amanda Marquez MD Pacemaker [facility] 09/01/2020 [id number] / [id number] / Procedures Procedure Name Priority Date/Time Associated Diagnosis Comments USE ECHOCARDIOGRAM W CON Routine 07/04/2024 11:00 AM CDT 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 Stat.:Outpatient Reason for Study:MR Procedures: Study performed at [place], [place] and interpreted by [facility]. 2D, M-mode, Doppler, Color Flow, Myocardial contrast was used to enhance endocardial definition. ++++++++++++++++++++++++++++++++++++ SUMMARY: ++++++++++++++++++++++++++++++++++++ Left ventricle is normal in size and function Estimated EF of 55-60% Right ventricle is normal in size and function Mild mitral regurgitation Mild pulmonary hypertension. ++++++++++++++++++++++++++++++++++++ FINDINGS: ++++++++++++++++++++++++++++++++++++ LV: The left ventricular size is normal. The left ventricular systolic function is normal. Estimated left ventricular ejection fraction is 55-60%. Mild concentric left ventricular hypertrophy. Left ventricular diastolic function is not accessible due to atrial fibrillation. WM: Wall motion appears normal in all segments. RV: The right ventricular size is normal. Right ventricular systolic function is normal. Right ventricular systolic pressure is 34 mmHg. A pacemaker wire is visualized in the right ventricle. IVS: Abnormal septal motion secondary to electronic ventricular pacemaker. LA: The left atrial size is normal. RA: Right atrial size is normal. A pacemaker wire is visualized in the right atrium. DEMIAN: No evidence of pericardial effusion. AO: Normal aortic root. SVn: Inferior vena cava is not assessable. AV: No evidence of aortic valve stenosis. No evidence of aortic regurgitation. The aortic valve not well visualized. MV: Structurally normal mitral valve. Mild mitral regurgitation. Mild thickening of mitral valve leaflets. PV: Pulmonic valve not well visualized. TV: Structurally normal tricuspid valve. A trace of tricuspid regurgitation. <Electronic Signature> 07/04/2024 02:56 PM De George M.D. Procedure Note De George MD - 07/04/2024 ESTEFANÍA MOYER Pat.Name: Harper Cook Pat.ID: [id number] .Date: 07/04/2024 Refer.MD: João, [facility] Radiology Exam Time: 10:12:00 AM Study Type:JOÃO Height: 70 in Weight: 280 lb BSA: 2.41 m2 Age: 10 1940,84Y Sex: M Sonogrphr: Lw Pat. Stat.:Outpatient Reason for Study:MR Procedures: Study performed at [place], [place] and interpreted by [facility]. 2D, M-mode, Doppler, Color Flow, Myocardial contrast was used to enhance endocardial definition. ++++++++++++++++++++++++++++++++++++ SUMMARY: ++++++++++++++++++++++++++++++++++++ Left ventricle is normal in size and function Estimated EF of 55-60% Right ventricle is normal in size and function Mild mitral regurgitation Mild pulmonary hypertension. ++++++++++++++++++++++++++++++++++++ FINDINGS: ++++++++++++++++++++++++++++++++++++ LV: The left ventricular size is normal. The left ventricular systolic function is normal. Estimated left ventricular ejection fraction is 55-60%. Mild concentric left ventricular hypertrophy. Left ventricular diastolic function is not accessible due to atrial fibrillation. WM: Wall motion appears normal in all segments. RV: The right ventricular size is normal. Right ventricular systolic function is normal. Right ventricular systolic pressure is 34 mmHg. A pacemaker wire is visualized in the right ventricle. IVS: Abnormal septal motion secondary to electronic ventricular pacemaker. LA: The left atrial size is normal. RA: Right atrial size is normal. A pacemaker wire is visualized in the right atrium. DEMIAN: No evidence of pericardial effusion. AO: Normal aortic root. SVn: Inferior vena cava is not assessable. AV: No evidence of aortic valve stenosis. No evidence of aortic regurgitation. The aortic valve not well visualized. MV: Structurally normal mitral valve. Mild mitral regurgitation. Mild thickening of mitral valve leaflets. PV: Pulmonic valve not well visualized. TV: Structurally normal tricuspid valve. A trace of tricuspid regurgitation. <Electronic Signature> 07/04/2024 02:56 PM De George M.D. Hue Wiggins CREDIT MANAGER ECHO Final Result from Last 3 Months Insurance MEDICARE MEDICARE Advance Directives * Full Code (Latest Code Status on File) Date Activated Date Inactivated Comments 09/17/2019 4:39 PM 09/17/2019 9:37 PM Care Teams Senior Counsel Commercial Relationship Specialty Start Date End Date Chelly Aleman FNP [address] [place] [address] [place] [address] PCP - General Nurse Practitioner Family 04/05/24 De George MD [facility]. [address] [place], [place] [id number] [place] Stone Fabricator CARDIOVASCULAR DISEASE 09/03/15 Amanda Marquez MD [facility]. [address] [place], [place] [id number] EP Stone Fabricator CLINICAL CARDIAC ELECTROPHYSIOLOGY 11/02/16
[2024-08-02 19:23] LABS: Basophils Percent Auto 0.8 % (0.2-1.2); Eosinophils Absolute Auto 0.2 K/mm3 (0-0.3); Eosinophils Percent Auto 3.8 % (0-4.4); Hematocrit 45.1 % (42.0-52.0); Hemoglobin 14.2 g/dL (14.0-18.0); Immature Granulocyte Absolute 0.02 K/mm3 (0.00-0.031); Immature Granulocyte Percent A 0.4 % (0-0.5); Immature Platelet Fraction Pct 8.3 % (0.9-11.2); Lymphocytes Absolute Auto 1.14 K/mm3 (0.9-3.2); Lymphocytes Percent Auto 21.7 % (18.3-44.2); Mean Corpuscular HGB Conc 31.5 g/dl (32-36); Mean Corpuscular Hemoglobin 30.3 pg (26-34); Mean Corpuscular Volume 96.2 fl (80-100); Mean Platelet Volume 11.9 fl (7.4-10.4); Monocytes Absolute Auto 0.4 K/mm3 (0.1-0.6); Monocytes Percent Auto 8.2 % (2.6-8.5); Neutrophils Absolute Auto 3.4 K/mm3 (1.3-6.7); Neutrophils Percent Auto 65.1 % (45.5-73.1); Platelet Count Result 141 k/mm3 (150-375); Red Blood Count 4.69 M/mm3 (4.6-6.20); Red Cell Distribution Width 13.3 % (11.5-14.5); White Blood Count 5.3 K/mm3 (4.5-10.0)
[2024-08-02 20:32] LABS: Alanine Aminotransferase 45 U/L (6-50); Albumin Level 4.3 g/dL (3.5-5.1); Alkaline Phosphatase 96 U/L (38-126); Anion Gap 8 mmol/L (4-12); Aspartate Amino Transferase 45 U/L (17-59); Bilirubin,Total 1.1 mg/dL (0.2-1.3); Blood Urea Nitrogen 16 mg/dL (9-20); Carbon Dioxide 28 mmol/L (22-30); Chloride 103 mmol/L (98-107); Cholesterol 145 mg/dL (0-200); Estimated Glomerular Filt Rate > 60; Glucose 87 mg/dL (65-110); HDL Direct 36 mg/dL; Sodium 139 mmol/L (137-145); Triglycerides 114 mg/dL (<150)
[2024-08-02 20:42] LABS: LDL Cholesterol Direct 72 mg/dL
[2024-08-02 21:02] LABS: Prostate Specific Antigen 1.1 ng/mL (< OR = 4.0)
[2024-08-02 21:07] LABS: Vitamin D 25 Hydroxy 41.1 ng/mL
[2024-08-02 21:20] LABS: Thyroid Stimulating Hormone Reflex 0.663 uIU/mL (0.465-4.68)
[2024-08-02 21:51] LABS: Hemoglobin A1C 5.5 % (<5.7)
== END 2024-08-02 10:49 | disposition home or self-care (01) ==
LOC: ANHGOSHLAB 10:49
PROVIDERS: PCP Nurse Practitioner Family; Visit Provider Nurse Practitioner Family
DX: E78.5 Hyperlipidemia, unspecified (principal); I10 Essential (primary) hypertension; E11.9 Type 2 diabetes mellitus without complications; E55.9 Vitamin D deficiency, unspecified; Z12.5 Encounter for screening for malignant neoplasm of prostate
CPT/HCPCS: 36415; 80053; 80061; 82306; 83036; 84153; 84443; 85025; 85055; G0103

== ENCOUNTER 2024-09-21 13:27 | Emergency (ER) | payer MEDICARE, SELFPAY ==
[2024-09-21 13:34] VITALS: BP 122/82; PULSE 78; RESP 16; TEMP 36.2; O2SAT 100
--- NOTE | 2024-09-21 14:05 | ED.SKABFB ---
HPI - Skin/Abscess/Foreign Bdy General Chief complaint: Skin/Abscess/Foreign Body Stated complaint: INSECT BITES Time Seen by Provider: 09/21/24 14:25 Source: patient and RN notes reviewed Mode of arrival: ambulatory Limitations: dementia History of Present Illness HPI narrative: 84-year-old male presents with concern for bumps on his left leg. Reports he pulled off a tick bite 2 days ago and now has a bump that is used the in that area. He denies other symptoms. MD complaint: other (Redness) Related Data Home Medications ?Medication ?Instructions ?Recorded ?Confirmed ?Last Taken ?Type apixaban 5 mg tablet (Eliquis) 5 mg PO BID 04/10/19 07/31/24 10/07/23 History atorvastatin 10 mg tablet (Lipitor) 10 mg PO DAILY 04/10/19 07/31/24 10/11/23 History loratadine 10 mg tablet 10 mg PO DAILY 04/24/19 07/31/24 10/11/23 History magnesium 250 mg tablet 250 mg PO DAILY 04/24/19 07/31/24 10/07/23 History vit C 250 mg-vit E 90 mg-zinc 40 1 tablet PO BID 04/24/19 07/31/24 10/07/23 History mg-copper 1 gf-qpmfso-mcrqep capsule (PreserVision AREDS-2) ascorbic acid (vitamin C) 500 mg 500 mg PO DAILY 02/18/22 07/31/24 10/07/23 History capsule cholecalciferol (vitamin D3) 50 1,000 unit PO DAILY 06/22/22 07/31/24 10/07/23 History mcg (2,000 unit) tablet acetaminophen 500 mg capsule 500 mg PO PRN PRN Pain 08/22/23 07/31/24 Unknown History fluticasone fur. 100 mcg-umeclid 1 inh inhalation DAILY 07/31/24 07/31/24 Unknown History 62.5 mcg-vilant 25 mcg inhalat.powder (Trelegy Ellipta) Allergies Allergy/AdvReac Type Severity Reaction Status Date / Time cat dander Allergy Severe Difficulty Verified 09/21/24 13:42 Breathing latex Allergy Intermediate Rash Verified 09/21/24 13:42 dextromethorphan (From Allergy Mild Hives Verified 09/21/24 13:42 NyQuil) doxylamine (From NyQuil) Allergy Mild Hives Verified 09/21/24 13:42 pseudoephedrine (From NyQuil) Allergy Mild Hives Verified 09/21/24 13:42 Review of Systems Review of Systems: CONSTITUTIONAL: Denies malaise, chills, sweats, or fever. EYES: Denies redness, or discharge. ENT: Denies rhinorrhea, congestion, swollen lips, swollen tongue CARDIOVASCULAR: Denies chest pain, palpitations, or edema. RESPIRATORY: Denies cough or dyspnea. GASTROINTESTINAL: Denies abdominal pain, nausea, vomiting SKIN: Reports to red bumps with yellow liquid draining behind the left knee. Denies purulent drainage, vesicles, bullae, numbness, pain beyond proportion MUSCULOSKELETAL: Denies joint pain or myalgia. NEUROLOGIC: Denies headache. All systems reviewed & are unremarkable except as noted in HPI and below PMFSH Past Medical History Medical History Sleep apnea History of pacemaker Atrial fibrillation Surgical History Surgical History History of carpal tunnel release of both wrists (~09/2023) History of toe surgery History of cholecystectomy History of hernia repair History of shoulder surgery 2015 Family History Family History Mother Family history of malignant neoplasm Carcinoma of colon, Onset Age: 67 Father Heart disease Pacemaker Carpal tunnel syndrome Appendicitis Sibling Cancer Pancreatic cancer Sibling Pancreatic cancer Social History Social History Social History: caffeine- 1 diet coke a few days a week Smoking status: Never smoker Second hand tobacco smoke exposure: Yes Alcohol intake: former Substance use: never Substance use type: does not use Do You Feel Safe in your Home?: Yes Lack of Transportation: No Lack of Food: Never True Current Housing: I Have Housing Concerned About Future Housing: No Difficulty Paying Gas/Electric Bills: No Difficulty Paying for Meds: No Currently Unemployed: No Education: High School Diploma/GED Difficulty w/ Childcare or Family Care: No Living arrangements: with family Occupation/Education: retired 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 Gender identity (if verbalized by the patient): Male Spiritual care concerns: No Comments At time of signature, agree with nursing past medical, surgical, social and family history. There is no relevant family history pertinent to the presenting complaint Exam Narrative: GENERAL: Well-appearing, well-nourished, and in no acute distress. HEAD: Normocephalic, atraumatic. EYES: PERRLA, conjunctivae clear ENT: Mucous membranes moist. NECK: Supple. No lymphadenopathy CHEST: Clear to auscultation. No respiratory distress. HEART: Regular rate and rhythm. SKIN: Warm, dry. Two raise 1 cm areas of Erythema with sharp margins noted left lower leg behind the knee. No fluctuation or purulent drainage noted. No vesicles, bullae, necrosis, ecchymosis, crepitus noted. NEURO: Alert and oriented x3. PSYCH: Normal mood and affect Course Course Emergency Course: Patient is aware of diagnosis, understands and agrees to treatment plan. Anticipatory guidance given. Patient agrees to follow-up as directed and is aware of reasons to seek care at the emergency department. Portions of this record may have been created with voice recognition software Level of Care: Express Care Visit Vital Signs Vital signs: Vital Signs Temperature 97.2 F L 09/21/24 13:34 Pulse Rate 78 09/21/24 13:34 Respiratory Rate 16 09/21/24 13:34 Blood Pressure 122/82 09/21/24 13:34 Pulse Oximetry 100 09/21/24 13:34 Temperature 97.2 F L 09/21/24 13:34 Pulse Rate 78 09/21/24 13:34 Respiratory Rate 16 09/21/24 13:34 Blood Pressure 122/82 09/21/24 13:34 Pulse Oximetry 100 09/21/24 13:34 Reviewed. MDM - Skin/Abscess/Foreign Bdy MDM Narrative Medical decision making narrative: I evaluated this in the express care. History is obtained from patient who is an independent historian and physical exam was performed.? Available medical records were reviewed. ? Exam findings and relevant testing show no acute concerns or changes; patient is non-toxic appearing and is in no distress. No risk factors or findings concerning for epidural abscess, diskitis, vertebral osteomyelitis, cord compression, cauda equina, vertebral fracture or bone malignancy, AAA, or pyelonephritis. Patient instructed to consider further imaging and workup through their primary care physician as an outpatient if symptoms persist. Does not appear at this time to be erythema multiforme, bullous, SJS, TEN; no evidence at this time to suggest RMSF, NSTI, endocarditis or Lyme disease; patient looks well, nontoxic and is tolerating oral intake; no neurologic signs or symptoms; no headache, photophobia or neck pain; afebrile.? Patient does not have history of of penetrating trauma, laceration, blunt trauma, recent surgery, immunosuppression, malignancy, obesity, alcoholism, corticosteroid use.? Discussed the importance of follow-up, patient agrees; question, cellulitis versus necrotizing soft tissue infection versus abscess.?? Patient is appropriate for outpatient treatment and follow-up. Critical Care Time Critical Care Time Critical Care Time: No Discharge Plan Discharge Clinical Impression: Tick bite Patient Disposition: Home Condition: Stable Instructions: Antibiotic Form, Tick Bite (ED) Additional Instructions: 1) Please follow-up with your primary care doctor in the next 1-2 days. 2) If you have any worsening of symptoms or any other urgent concerns please go to the ER. 3) Please take medications as prescribed and continue taking your home medications as usual. 4) Please read and follow information included in discharge instructions. Patient Language: Indonesian Prescriptions: New doxycycline monohydrate 100 mg tablet 100 mg PO BID 7 Days Qty: 14 0RF No Action Eliquis 5 mg tablet 5 mg PO BID atorvastatin [Lipitor] 10 mg tablet 10 mg PO DAILY loratadine 10 mg tablet 10 mg PO DAILY PreserVision AREDS-2 [id number] lf-rdwe-hv-mg capsule 1 tablet PO BID Rx Instructions: administer with meals magnesium 250 mg tablet 250 mg PO DAILY cholecalciferol (vitamin D3) 50 mcg (2,000 unit) tablet 1,000 unit PO DAILY albuterol sulfate [Proventil HFA] 90 mcg/actuation HFA aerosol inhaler 1 inh inhalation QID PRN (Reason: Shortness Of Breath) Qty: 8.5 2RF Trelegy Ellipta 100-62.5-25 mcg blister with device 1 inh inhalation DAILY metoprolol tartrate 25 mg tablet 25 mg PO BID Qty: 90 1RF (DME) nebulizer and compressor Device See Rx Instructions .Route Qty: 1 0RF Rx Instructions: As directed acetaminophen 500 mg Capsule 500 mg PO PRN PRN (Reason: Pain) ascorbic acid (vitamin C) 500 mg Capsule 500 mg PO DAILY losartan-hydrochlorothiazide 100-12.5 mg tablet 1 tablet PO DAILY Qty: 30 0RF Rx Instructions: LAST REFILL UNTIL SEEN omeprazole 40 mg capsule,delayed release(DR/EC) 40 mg PO DAILY Qty: 30 5RF Follow-up/Referrals: Chelly Aleman NP [Primary Care Provider] - Time of Disposition: 14:18
== END 2024-09-21 14:26 | disposition home or self-care (01) ==
PROVIDERS: Emergency Provider Nurse Practitioner; PCP Nurse Practitioner Family
DX: S80.862A Insect bite (nonvenomous), left lower leg, initial encounter (principal); I48.91 Unspecified atrial fibrillation; W57.XXXA Bitten or stung by nonvenomous insect and other nonvenomous arthropods, initial encounter
CPT/HCPCS: 99213; G0463

== ENCOUNTER 2024-11-16 13:01 | Outpatient (CLI) | payer MEDICARE, SELFPAY ==
--- OUTSIDE RECORDS SUMMARY | 2024-11-16 13:03 | XMS_ITS | Clinical Summary ---
Author Organization [facility] [address] Address [address] [place] [phone] Care Team Providers Care Quality Control Tester Name Role Phone Unknown, Notinfile Primary Care [...] on file Legal Sex Male 3:02 AM PORTRAIT PHOTOGRAPHER Gender Identity Not on file Sexual Orientation Not on file Obstetrics History Last Filed Vital Signs Vital Sign Reading Time Taken Comments Blood Pressure 135/87 05/28/2023 11:41 AM PORTRAIT PHOTOGRAPHER Pulse 83 05/28/2023 11:41 AM PORTRAIT PHOTOGRAPHER Temperature 36.6 C (97.9 F) 05/28/2023 11:41 AM PORTRAIT PHOTOGRAPHER Respiratory Rate 20 05/28/2023 11:41 AM PORTRAIT PHOTOGRAPHER Oxygen Saturation 96% 05/28/2023 11:41 AM PORTRAIT PHOTOGRAPHER Inhaled Oxygen Concentration - - Weight 130.4 kg (287 lb 8 oz) 05/28/2023 11:41 A M PORTRAIT PHOTOGRAPHER Height 172.7 cm (5' 8) 05/28/2023 11:41 AM PORTRAIT PHOTOGRAPHER Body Mass Index 43.71 05/28/2023 11:41 AM PORTRAIT PHOTOGRAPHER Plan of Treatment Health Maintenance Due Date Last Done Comments Depression Screening 1942 Fall Risk Assessment 1942 Hepatitis B Screening 01/28/1960 Well Visit 65+ 2007 Zoster Vaccine (2 of 2) 01/10/2018 11/15/2017 Covid-19 Vaccine (2023-2 5 season) 2023 02/28/2023, 02/01/2022, 08/17/2021, Additional history exists DTaP/Tdap/Td Vaccine (2 - Td or Tdap) 10/17/2024 10/17/2014 Influenza Vaccine (#1) 2024 3, 02/09/2018, 01/02/2018, Additional history exists Pneumococcal vaccine 65+ Completed 10/17/2014, 11/2012 Insurance [facility] Care Teams Quality Control Tester Relationship Specialty Start Date End Date Unknown, Notinfile PCP - General 05/28/23
[2024-11-16 19:43] LABS: Vitamin B12 307.0 pg/mL (239-931)
== END 2024-11-16 13:02 | disposition home or self-care (01) ==
LOC: ANHGOSHLAB 13:01
PROVIDERS: PCP Nurse Practitioner Family; Visit Provider Nurse Practitioner Family
DX: R20.0 Anesthesia of skin (principal); R20.2 Paresthesia of skin
CPT/HCPCS: 36415; 82607

== ENCOUNTER 2024-11-21 13:25 | Outpatient (RCR) | payer MEDICARE, SELFPAY ==
--- NOTE | 2024-11-21 15:43 | OPREHPOC ---
Outpatient Therapy Plan of Care This is a Multidisciplinary Plan of Care that may contain components documented by all disciplines (PT, OT, and ST.) PT Problem 1 PT Problem #1 Knowledge Deficit PT Goal 1 Goal / Goal Update Independent and compliant with HEP. Target Visit 2 PT Problem 2 PT Problem #2 Impaired Range of Motion PT Goal 1 Goal / Goal Update Pt to improve active lumbar flexion to floor. Pt to improve active lumbar lateral flexion to 35 deg bilaterally. Target Visit 12 PT Problem 3 PT Problem #3 Impaired Strength PT Goal 1 Goal / Goal Update Pt to improve bilat hip flexion strength to 5/5. Pt to improve bilat knee flexion strength to 5/5. Pt to improve lower abdominal strength to 4+/5. Target Visit 12 PT Problem 4 PT Problem #4 Impaired Flexibility PT Goal 1 Goal / Goal Update Pt to demonstrate -25 on L hamstring 90/90. Target Visit 12 PT Problem 5 PT Problem #5 Impaired Functional Mobility PT Goal 1 Goal / Goal Update Pt to report 15% reduction in perceived disability on Oswestry. Target Visit 12
--- NOTE | 2024-11-21 15:43 | PTOPEVAL1 ---
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 He notes his symptoms were pain and burning from the back of his hip all the way down to his L ankle, and that these same symptoms have returned . He also reports abnormal sensation on the pads of both of his feet and that his toes on both feet feel cool, and that the doctor might have mentioned neuropathy. Reported Pain Level Pain Score 1: Self Report Assessment PT Clinical Summary Mr. Cook is an 84 yo male presenting for skilled PT evaluation for lumbargo with sciatica. He demonstrates with only slight LBP on evaluation but his pain at worst is burning and sharp in nature and goes all the way down to his L ankle. Special tests for lumbar radiculopathy were negative this date, however pt demonstrates moderate abdominal mm weakness and mild deficits in hip flexion strength, as well as moderate hip mm tightness (L>R). He will benefit from skilled PT intervention to address these deficits to improve strength and functional performance. Plan of Care Interventions Gait Training,Hot Pack/Cold Pack,Manual Therapy, Neuro Re-education,Patient/Caregiver Education, Therapeutic Activities,Therapeutic Exercise,Self- Care/Home Management PT Services Indicated Yes Treatment Frequency and 2x/week for 12 visits Duration These treatments will address the objective and functional deficits as defined above. The patient will be advanced safely and appropriately in order for the patient to progress towards his/her prior level of function. Additional exercises will be introduced and as well as a comprehensive home exercise program upon discharge, if needed, ?to ensure carryover of functional gains achieved in the clinic. This treatment plan has been reviewed and agreement upon by the patient.
== END 2025-02-19 23:59 | disposition home or self-care (01) ==
LOC: CHSPT 13:25
PROVIDERS: Visit Provider Nurse Practitioner Family
DX: M54.42 Lumbago with sciatica, left side (principal); M54.16 Radiculopathy, lumbar region
CPT/HCPCS: 97110; 97140; 97161; 97530

== ENCOUNTER 2024-12-10 12:39 | Outpatient (CLI) | payer MEDICARE, SELFPAY ==
--- NOTE | ~2024-12-10 | US_ITS ---
US arterial ankle brachial ind INDICATION: Vascular symptoms TECHNIQUE: Segmental pressures and plethysmographic and Doppler waveforms of the brachial and lower extremity arteries were obtained. COMPARISON: None. FINDINGS: Right and left brachial artery pressures of 128 mm Hg and 142 mm Hg, respectively, are concordant (normal difference <= 30 mmHg). The right ankle-brachial index (ALIS) is 1.12 (normal >= 0.9-1.0). The right great toe-brachial index (TBI) is 0.75 (normal >= 0.60). The left ALIS is 0.99. The left TBI is 0.91. IMPRESSION: 1. Normal ankle-brachial indices. Reviewed, dictated and finalized at location O.
--- OUTSIDE RECORDS SUMMARY | 2024-12-10 12:44 | XMS_ITS | Encounter Summary ---
Author Organization [facility] Address [address] [place] [address] Care Team Providers Care Band Machine Operator Name Role Phone De George MD Unavailable [phone] Simon Madrigal MD Primary Care Provider + [phone] Amanda Marquez MD Unavailable Raymundo Lewis DO Primary Care Provider [phone] Chelly Aleman Primary Care Provider + [phone] Encounter Details Date Type Department Care Team (Late st Contact Info) Description 07/24/2018 Hospital Orders Only [facility] [place] [address] Amanda Marquez MD Three [facility]. [facility] [address] [place] [address] Social History Tobacco Use Types [...] Care Team (Late st Contact Info) Description 01/14/2025 1:30 PM CDT Office Visit [facility] [address] [place] [phone] Hue Wiggins FNP [address] [place] [address] 02/25/2025 11:15 AM TELE RN Office Visit [facility] [address] [place] [address] Justyna Rutherford APRN 3 [facility], [facility] [address] [place], [place] [address] 11/04/2025 2:00 PM CDT Office Visit [facility] [address] [place] [phone] Titus Olmstead DO [address] [facility] [address] [place] [address] documented as of this encounter Visit Diagnoses Not on filedocumented in this encounter Additional Health Concerns Infection Onset Date Last Indicated Resolved Time COVID-19 Rule Out 09/14/2019 09/14/2019 09/15/2019 11:53 AM CDT documented as of this encounter Care Teams Band Machine Operator Relationship Specialty Start Date End Date Simon Madrigal MD [address] [place] [address] PCP - General INTERNAL MEDICINE 09/03/15 01/01/22 Raymundo Lewis DO [address] [place] [address] [facility] [address] [place] [address] PCP - General FAMILY PRACTICE 01/02/22 04/04/24 Chelly Aleman FNP [facility] [address] [place] [address] PCP - General Nurse Practitioner Family 04/05/24 De George MD Three [facility]. [address] [place] [address] [employer] Senior Cost Analyst CARDIOVASCULAR DISEASE 09/03/15 Amanda Marquez MD Three [facility]. [address] [place], [place] [id number] EP Senior Cost Analyst CLINICAL CARDIAC ELECTROPHYSIOLOGY 11/02/16 documented as of this encounter
--- OUTSIDE RECORDS SUMMARY | 2024-12-10 12:44 | XMS_ITS | Clinical Summary ---
Author Organization [facility] Address [address] [place] [address] Care Team Providers Care Assistant Media Planner Name Role Phone De George MD Unavailable [phone] Amanda Marquez MD Unavailable Chelly Aleman Primary Care Provider + [phone] Allergies Active Allergy Reactions Criticality Noted Date [...] 3 022 Active Nebulizers (INNOSPIRE ELEGANCE NEBULIZER) [facility] see administration instructions. 022 Active albuterol (PROVENTIL) (2.5 MG/3ML) 0.083% nebulizer solution Take 3 mLs (2.5 mg total) by nebulization every 6 (six) hours as needed for Wheezing. Active TRELEGY ELLIPTA 100-62.5-25 MCG/ACT AEROSOL POWDER, BREATH ACTIVATED Using as needed 023 Active losartan-hydroC HLOROthiazide (HYZAAR) 100-12.5 MG tablet TAKE ONE TABLET BY MOUTH DAILY 90 tablet 1 025 Active omeprazole (PRILOSEC) 40 MG capsule Take 1 capsule (40 mg total) by mouth daily. 90 capsule 3 025 2025 Active nitroglycerin (NITROSTAT) 0.[address] 1 tablet (0.4 mg total) under the tongue every 5 (five) minutes as needed for Chest Pain. Maximum of 3 doses. If taking 3rd dose, call 911 25 tablet 2 025 Active metoprolol tartrate (LOPRESSOR) 25 MG tablet TAKE ONE TABLET BY MOUTH TWICE A DAY 180 tablet 025 Active Fluticasone-Ume clidin-Vilant (TRELEGY ELLIPTA) 100-62.5-25 MCG/ACT AEROSOL POWDER, BREATH ACTIVATEDIndica tions:Moderate persistent asthma without complication (HHS/HCC) Inhale 1 puff into the lungs daily. 60 each 6 025 Active apixaban (ELIQUIS) 5 MG tablet TAKE ONE TABLET BY MOUTH TWICE A DAY 180 tablet 025 Active atorvastatin (LIPITOR) 10 MG tablet TAKE ONE TABLET BY MOUTH BEDTIME 90 tablet 025 Active apixaban (ELIQUIS) 5 MG tablet TAKE ONE TABLET BY MOUTH TWICE A DAY 180 tablet 1 025 2024 Discontinued atorvastatin (LIPITOR) 10 MG tablet TAKE ONE TABLET BY MOUTH BEDTIME 90 tablet 1 025 2024 Discontinued Active Problems Problem Noted Date Diagnosed Date Pacemaker 09/17/2019 Overview (05/27/2021): STJ Quadra Allure CRTP implanted 09/17/2019, along with a CS lead for NICM/CHB, Atrial and RV leads are chronic from 08/14/2004. Atrial fibrillation with RVR (CMS/HCC HHS/HCC) 0 09/12/2019 Non-rheumatic mitral regurgitation 05/25/2018 Morbid obesity 12/09/2016 Atrial fibrillation (CMS/HCC [facility]) 12/07/2016 JORDON on CPAP 12/07/2016 SSS (sick sinus syndrome) ([facility]) Hypertension, essential Dyslipidemia CHB (complete heart block) ([facility]) Bradycardia Resolved Problems Problem Noted Date Diagnosed Date Resolved Date Asthma ([facility]) 01/26/2017 08/06/2021 Encounters Date Type Department Care Team Description 11/26/2024 1:30 PM CDT Office Visit [facility] [address] [address] Titus Olmstead DO Obstructive Sleep Apnea ; Follow Up 11/26/2024 Travel from Last 3 Months Immunizations Immunization Administration [...] Sign Reading Time Taken Comments Blood Pressure 118/72 11/26/2024 1:26 PM CDT Pulse 81 11/26/2024 1:26 PM CDT Temperature 36.6 C (97.9 F) 09/26/2023 11:25 AM CDT Respiratory Rate 16 11/26/2024 1:26 PM CDT Oxygen Saturation 97% 11/26/2024 1:26 PM CDT Inhaled Oxygen Concentration - - Weight 132 kg (291 lb) 11/26/2024 1:26 PM CDT Height 172.7 cm (5' 8) 11/26/2024 1:26 PM CDT Body Mass Index 44.25 11/26/2024 1:26 PM CDT Plan of Treatment Upcoming Encounters Date Type Department Care Team (Late st Contact Info) Description 01/14/2025 1:30 PM CDT Office Visit [facility] [address] [phone] Hue Wiggins FNP 3 [facility] [address] [place], [place] [phone] 02/25/2025 11:15 AM PIPING ENGINEER [facility], [address] [place] [address] Justyna Rutherford APRN 3 [facility] [address] [place] [address] 11/04/2025 2:00 PM CDT Office Visit [facility] [id number] [place] [phone] Titus Olmstead DO 3 [facility] [address] [place], [place] [phone] Health Maintenance Due Date Last Done Comments Annual Medicare Wellness Visit 2007 Zoster Vaccines (2 of 2) 01/10/2018 11/15/2017, 11/02 COVID-19 Vaccine ( season) 2023 02/28/2023, 02/01/2022, 08/17/2021, Additional history exists PHQ-2 (Physician [place]) 04/04/2024 DTaP, Tdap and Td Vaccines (4 - Td or Tdap) 06/29/2034 06/29/2024, 10/17/2014, 12/19/2013 Pneumococcal Vaccine: 50+ Years Completed 07/10/2018, 10/17/2014, 12/19/2013, Additional history exists RSV Immunization or 60+ Years Completed 01/08/2023 Meningococcal B Vaccine Aged Out No l onger eligible based on patient's age to complete this topic Meningococcal Vaccine Aged Out No rickey andre eligible based on patient's age to complete this topic RSV Immunizations Under 20 Months Aged Out No longer eligible based on patient's age to complete this topic Medical Devices Implanted Type Area Agriscience Instructor Device Identifier Shelf Expiration Date Model / Serial / Lot Atrial Lead- 5 Implanted: by Arpan Pollard MD (Quantity not on file) Lead Implant [employer] [id number] / [id number] / Rv Lead- 5 Implanted: by Arpan Pollard MD (Quantity not on file) Lead Implant [employer] [id number] / [id number] / Lv Lead Implanted:Qty : 1 on 09/17/2019 by Amanda Marquez MD Lead Implant [employer] CARDIAC RHYTHM AND HEART FAILURE - DIV M 06/05/2021 [id number] / [id number] / St [employer] Pacemaker-08/05 Implanted:07/2011 by Arpan Pollard MD (Quantity not on file) Explanted: by Amanda Marquez MD (Quantity not on file) Pacemaker [employer] [id number] / [id number] / Sj Pacemaker-07/04 Implanted: by Amanda Marquez MD (Quantity not on file) Explanted:Qty : 1 on 09/17/2019 by Amanda Marquez MD Pacemaker [employer] [id number] / [id number] / Sja Pacemaker 09/17/19 Implanted:Qty : 1 on 09/17/2019 by Amanda Marquez MD Pacemaker [employer] 09/01/2020 [id number] / [id number] / Insurance MEDICARE MEDICARE Advance Directives * Full Code (Latest Code Status on File) Date Activated Date Inactivated Comments 09/17/2019 4:39 PM 09/17/2019 9:37 PM Care Teams Assistant Media Planner Relationship Specialty Start Date End Date Chelly Aleman FNP [address] [place] [address] [address] [place] [address] PCP - General Nurse Practitioner Family 04/05/24 De George MD Three [facility]. [address] [place] [address] [employer] Training Personnel Supervisor CARDIOVASCULAR DISEASE 09/03/15 Amanda Marquez MD Three [facility]. [address] [place], [place] [phone] EP Training Personnel Supervisor CLINICAL CARDIAC ELECTROPHYSIOLOGY 11/02/16
--- OUTSIDE RECORDS SUMMARY | 2024-12-10 12:44 | XMS_ITS | Clinical Summary ---
Author Organization [facility] [address] [place] Address [address] [place] [address] Care Team Providers Care Assault Boat Coxswain Name Role Phone Unknown, Notinfile Primary Care [...] on file Legal Sex Male 3:02 AM HISTOTECHNOLOGIST Gender Identity Not on file Sexual Orientation Not on file Obstetrics History Last Filed Vital Signs Vital Sign Reading Time Taken Comments Blood Pressure 135/87 05/28/2023 11:41 AM HISTOTECHNOLOGIST Pulse 83 05/28/2023 11:41 AM HISTOTECHNOLOGIST Temperature 36.6 C (97.9 F) 05/28/2023 11:41 AM HISTOTECHNOLOGIST Respiratory Rate 20 05/28/2023 11:41 AM HISTOTECHNOLOGIST Oxygen Saturation 96% 05/28/2023 11:41 AM HISTOTECHNOLOGIST Inhaled Oxygen Concentration - - Weight 130.4 kg (287 lb 8 oz) 05/28/2023 11:41 A M HISTOTECHNOLOGIST Height 172.7 cm (5' 8) 05/28/2023 11:41 AM HISTOTECHNOLOGIST Body Mass Index 43.71 05/28/2023 11:41 AM HISTOTECHNOLOGIST Plan of Treatment Health Maintenance Due Date Last Done Comments Depression Screening 1942 Fall Risk Assessment 1940 Hepatitis B Screening 01/28/1960 Well Visit 65+ 2007 Zoster Vaccine (2 of 2) 01/10/2018 11/15/2017 DTaP/Tdap/Td Vaccine (2 - Td or Tdap) 10/17/2024 10/17/2014 Covid-19 Vaccine (2024-2 6 season) 2024 02/28/2023, 02/01/2022, 08/17/2021, Additional history exists Influenza Vaccine (#1) 2024 , 02/09/2018, 01/02/2018, Additional history exists Pneumococcal vaccine 65+ Completed 10/17/2014, 11/2012 Insurance [facility] MEDICARE [id number] [place] [id number] Care Teams Assault Boat Coxswain Relationship Specialty Start Date End Date Unknown, Notinfile PCP - General 05/28/23
--- OUTSIDE RECORDS SUMMARY | 2024-12-10 12:44 | XMS_ITS | Encounter Summary ---
Author Organization [facility] Address [address] [place] [address] Care Team Providers Care Media Promoter Name Role Phone De George MD Unavailable [phone] Amanda Marquez MD Unavailable Raymundo Lewis DO Primary Care Provider [phone] Chelly Aleman Primary Care Provider + [phone] Encounter Details Date Type Department Care Team (Late st Contact Info) Description 09/29/2022 MyChart Message Enc [facility] [address] [place] [address] Farrah, [facility] Provider Air Quality Message Social History Tobacco [...] Description 01/14/2025 1:30 PM CDT Office [facility] [address] [place] [phone] Hue Wiggins FNP 3 [facility] [address] [place], [place] [address] 02/25/2025 11:15 AM DRAW END HAND Office Visit [facility] THREE [facility] [address] [place] [address] Justyna Rutherford APRN 3 [facility], [facility] [address] [place], [place] [address] 11/04/2025 2:00 PM CDT Office Visit [facility] [address] [place] [address] Titus Olmstead DO 3 [facility] [address] [place] [address] documented as of this encounter Visit Diagnoses Not on filedocumented in this encounter Care Teams Media Promoter Relationship Specialty Start Date End Date Raymundo Lewis DO [address] [place] [address] [address] [place], [place] [phone] PCP - General FAMILY PRACTICE 01/02/22 04/04/24 Chelly Aleman FNP [address] [place] [address] [address] [place] [address] PCP - General Nurse Practitioner Family 04/05/24 De George MD [address] [facility] [address] [place], [place] [address] [place] Reproduction Technician CARDIOVASCULAR DISEASE 09/03/[address] Mar[address] MD [address] [place], [place] [address] EP Reproduction Technician CLINICAL CARDIAC ELECTROPHYSIOLOGY 11/02/16 documented as of this encounter
--- OUTSIDE RECORDS SUMMARY | 2024-12-10 12:44 | XMS_ITS | Encounter Summary ---
Author Organization [facility] Address [address] [place] [address] Care Team Providers Care Retail Event Coordinator Name Role Phone De George MD Unavailable [phone] Simon Madrigal MD Primary Care Provider + [phone] Amanda Marquez MD Unavailable Raymundo Lewis DO Primary Care Provider [phone] Chelly Aleman Primary Care Provider + [phone] Encounter Details Date Type Department Care Team (Late st Contact Info) Description 10/21/2020 Abstract [facility] [address] Dahiana Tejada MA Social History [...] Description 01/14/2025 1:30 PM CDT Office Visit [facility] [address] [place] [address] Hue Wiggins FNP 3 [facility] [address] [place] [address] 02/25/2025 11:15 AM SUPERVISOR BINDERY Office Visit [facility] THREE [facility], [address] [place] [address] Justyna Rutherford, ADDISON 3 [facility] [address] [place], [place] [address] 11/04/2025 2:00 PM CDT Office Visit [facility] [address] [address] Titus Olmstead DO 3 [facility] [address] [place] [address] documented as of this encounter Procedures Procedure [...] on filedocumented in this encounter Care Teams Retail Event Coordinator Relationship Specialty Start Date End Date Simon Madrigal MD [address] [place] [address] PCP - General INTERNAL MEDICINE 09/03/15 01/01/22 Raymundo Lewis DO [facility] [address] [place] [address] PCP - General FAMILY PRACTICE 01/02/22 04/04/24 Chelly Aleman FNP [facility] [address] [place] [address] PCP - General Nurse Practitioner Family 04/05/24 De George MD Three [facility] [address] [place], [place] [address] [place] Convention Manager CARDIOVASCULAR DISEASE 09/03/15 Amanda Marquez MD Three [facility]. [address] [place], [place] [id number] EP Convention Manager CLINICAL CARDIAC ELECTROPHYSIOLOGY 11/02/16 documented as of this encounter
--- OUTSIDE RECORDS SUMMARY | 2024-12-10 12:44 | XMS_ITS | Encounter Summary ---
Author Organization [facility] Address [address] [place] [address] Care Team Providers Care Aircraft Structural Design Engineer Name Role Phone De George MD Unavailable [phone] Simon Madrigal MD Primary Care Provider [phone] Amanda Marquez MD Unavailable Raymundo Lewis DO Primary Care Provider [phone] Chelly Aleman Primary Care Provider + [phone] Encounter Details Date Type Department Care Team (Late st Contact Info) Description 09/17/2019 Hospital Follow-up Call [facility] [place] [address] Myla Sullivan, RN Social History [...] Description 01/14/2025 1:30 PM CDT Office Visit [facility] [address] [place] [address] Hue Wiggins FNP 3 [facility] [address] [place] [address] 02/25/2025 11:15 AM EVENT MARKETING INTERN [facility] [place] THREE [facility] [address] [place] [address] Justyna Rutherford APRN 3 [facility] [address] [place] [address] 11/04/2025 2:00 PM CDT Office Visit [facility] [place] [address] [place] [address] Titus Olmstead DO 3 [facility] [address] [place] [address] documented as of this encounter Visit Diagnoses Not on filedocumented in this encounter Care Teams Aircraft Structural Design Engineer Relationship Specialty Start Date End Date Simon Madrigal MD [address] [place] [address] PCP - General INTERNAL MEDICINE 09/03/15 01/01/22 Raymundo Lewis DO [address] [place] [address] [address] [place], [place] [phone] PCP - General FAMILY PRACTICE 01/02/22 04/04/24 Chelly Aleman FNP [address] [place] [address] [address] [place], [place] [phone] PCP - General Nurse Practitioner Family 04/05/24 De George MD Three [facility] [address] [place], [place] [address] [place] Tuck Pointer Helper CARDIOVASCULAR DISEASE 09/03/15 Amanda Marquez MD Three [facility] [address] [place], [place] [id number] EP Tuck Pointer Helper CLINICAL CARDIAC ELECTROPHYSIOLOGY 11/02/16 documented as of this encounter
== END 2024-12-10 12:40 | disposition home or self-care (01) ==
PROVIDERS: PCP Family Medicine; Visit Provider Nurse Practitioner Family
DX: R09.89 Other specified symptoms and signs involving the circulatory and respiratory systems (principal); R20.0 Anesthesia of skin; R20.2 Paresthesia of skin; R20.9 Unspecified disturbances of skin sensation; L81.9 Disorder of pigmentation, unspecified
CPT/HCPCS: 93922

== ENCOUNTER 2025-02-25 09:57 | Outpatient (CLI) | payer MEDICARE, SELFPAY ==
--- OUTSIDE RECORDS SUMMARY | 2025-02-25 11:22 | XMS_ITS | Clinical Summary ---
Author Organization [facility] [address] [place] Address [address] [place] [address] Care Team Providers Care Training Designer Name Role Phone Unknown, Notinfile Primary Care [...] on file Legal Sex Male 3:02 AM HEDDLER Gender Identity Not on file Sexual Orientation Not on file Last Filed Vital Signs Vital Sign Reading Time Taken Comments Blood Pressure 135/87 05/28/2023 11:41 AM HEDDLER Pulse 83 05/28/2023 11:41 AM HEDDLER Temperature 36.6 C (97.9 F) 05/28/2023 11:41 AM HEDDLER Respiratory Rate 20 05/28/2023 11:41 AM HEDDLER Oxygen Saturation 96% 05/28/2023 11:41 AM HEDDLER Inhaled Oxygen Concentration - - Weight 130.4 kg (287 lb 8 oz) 05/28/2023 11:41 A M HEDDLER Height 172.7 cm (5' 8) 05/28/2023 11:41 AM HEDDLER Body Mass Index 43.71 05/28/2023 11:41 AM HEDDLER Plan of Treatment Health Maintenance Due Date Last Done Comments Depression Screening 1942 Fall Risk Assessment 1942 Hepatitis B Screening 01/28/1958 Well Visit 65+ 2007 Zoster Vaccine (2 of 2) 01/10/2018 11/15/2017 DTaP/Tdap/Td Vaccine (2 - Td or Tdap) 10/17/2024 10/17/2014 Covid-19 Vaccine (2 6 season) 2024 02/28/2023, 02/01/2022, 08/17/2021, Additional history exists Influenza Vaccine (#1) 2024 , 02/09/2018, 01/02/2018, Additional history exists Pneumococcal vaccine 65+ Completed 10/17/2014, 11/2012 Insurance [facility] MEDICARE Care Teams Training Designer Relationship Specialty Start Date End Date Unknown, Notinfile PCP - General 05/28/23
[2025-02-25 13:04] LABS: Hematocrit 43.0 % (42.0-52.0); Hemoglobin 13.9 g/dL (14.0-18.0); Immature Granulocyte Percent A 0.4 % (0-0.5); Immature Platelet Fraction Pct 8.2 % (0.9-11.2); Lymphocytes Absolute Auto 1.10 K/mm3 (0.9-3.2); Mean Corpuscular HGB Conc 32.3 g/dl (32-36); Mean Corpuscular Hemoglobin 31.2 pg (26-34); Mean Corpuscular Volume 96.4 fl (80-100); Nucleated Red Blood Cells Absolute Auto 0.000 K/mm3 (0.0-0.012); Nucleated Red Blood Cells Perc 0.0 % (0.0-0.2); Platelet Count Result 130 k/mm3 (150-375); Red Blood Count 4.46 M/mm3 (4.6-6.20); White Blood Count 4.9 K/mm3 (4.5-10.0)
[2025-02-25 13:27] LABS: Alanine Aminotransferase 24 U/L (6-50); Albumin Level 4.0 g/dL (3.5-5.1); Alkaline Phosphatase 83 U/L (38-126); Anion Gap 6 mmol/L (4-12); Aspartate Amino Transferase 32 U/L (17-59); Bilirubin,Total 0.9 mg/dL (0.2-1.3); Blood Urea Nitrogen 17 mg/dL (9-20); Calcium 9.0 mg/dL (8.4-10.2); Carbon Dioxide 30 mmol/L (22-30); Chloride 102 mmol/L (98-107); Cholesterol 154 mg/dL (0-200); Estimated Glomerular Filt Rate > 60; Glucose 91 mg/dL (65-110); HDL Direct 39 mg/dL; Potassium 4.2 mmol/L (3.4-5.0); Sodium 138 mmol/L (137-145); Total Protein 6.8 g/dL (6.3-8.2); Triglycerides 114 mg/dL (<150)
[2025-02-25 14:03] LABS: Prostate Specific Antigen 1.2 ng/mL (< OR = 4.0)
[2025-02-25 14:12] LABS: Thyroid Stimulating Hormone Reflex 1.320 uIU/mL (0.465-4.68)
[2025-02-25 15:18] LABS: Hemoglobin A1C 5.6 % (<5.7)
== END 2025-02-25 09:58 | disposition home or self-care (01) ==
LOC: ANHGOSHLAB 09:59
PROVIDERS: PCP Family Medicine; Visit Provider Nurse Practitioner Family
DX: I10 Essential (primary) hypertension (principal); Z12.5 Encounter for screening for malignant neoplasm of prostate; E11.9 Type 2 diabetes mellitus without complications; E78.5 Hyperlipidemia, unspecified; E55.9 Vitamin D deficiency, unspecified
CPT/HCPCS: 36415; 80053; 80061; 82306; 83036; 84153; 84443; 85025; 85055; G0103